=== PATIENT | female | born 1960 | race Caucasian/White ===

== ENCOUNTER 2017-01-04 19:28 | Emergency (ER) | payer OTHER ==
[2017-01-04 19:41] VITALS: TEMP 98.6; BMI 37.8
[2017-01-04] MEDS ORDERED: ZOFRAN 4 MG/2 ML IM STA (20:51)
[2017-01-04] MEDS ORDERED: ATIVAN IVP STA (20:51)
[2017-01-04] MEDS ORDERED: MORPHINE 2 MG/ML SYRINGE IM STA (20:51)
--- NOTE | 2017-01-04 20:52 | ED.PDOC ---
General ED Provider: Dr. JOSE F ROMERO Chief Complaint: Chest Pain Stated Complaint: she woke up with left side chest pain, says she was informed by her PCP, that her cancer (colonmay be per pt) is back, she is stressed out about it. does not radiate, hurt to touch on left side. while i was in hospital my blood presssure pills were changed, Time Seen by Physician: 20:53 Mode of Arrival: Walk-In Information Source: Patient Primary Care Provider: ANTONIA KARIMI Nursing and Triage Documentation Reviewed and Agree: Yes Cardiovascular Complaint Exam - Chest Pain Complaint/Exam Onset: Gradual Symptoms Are: Still present Timing: Constant Initial Severity: Moderate Current Severity: Moderate Location: Reports: Left anterior Pain Radiates: Reports: None Character: Reports: Aching Aggravating: Reports: None Alleviating: Reports: None Associated Signs and Symptoms: Denies: Diaphoresis, Nausea, Vomiting, Fever, Palpitations, Cough, Hemoptysis, Back pain, Abdominal pain, Dizziness, Short of air, Calf pain, Calf swelling Related History: Reports: Similar episode Related Surgical History: Reports: None History of Healthcare-Acquired Pneumonia: Reports: No AMI/ACS Risk Factors: Reports: None TAD Risk Factors: Reports: None Pulmonary Embolism Risk Factors: Reports: None Prior Care for this Complaint: Yes Recent Stress Test: Yes Recent Echo/LV Function: Yes JVD Present: No Subcutaneous Emphysema Present: No Diminshed Breath Sounds: No Reproducible Chest Wall Pain: Yes Bilateral Pulses Present: Yes If Risk Factors for AMI/ACS Consider: EKG, Cardiac Enzymes, Serial Studies, Oxygen Differential Diagnoses: Stable Angina, Chest Wall Pain, Other (anxiety) Review of Systems - Review Of Systems Constitutional: Reports: No symptoms Eyes: Reports: No symptoms Ears, Nose, Mouth, Throat: Reports: No symptoms Respiratory: Reports: No symptoms Cardiac: Reports: Chest pain GI: Reports: No symptoms : Reports: No symptoms Musculoskeletal: Reports: No symptoms Skin: Reports: No symptoms Neurological: Reports: Anxiety, Emotional problems Endocrine: Reports: No symptoms Hematologic/Lymphatic: Reports: No symptoms All Other Systems: Reviewed and Negative Past Medical History - Past Medical History Previously Healthy: No Endocrine: Reports: None Cardiovascular: Reports: CAD, [place], Hypertension, CHF Respiratory: Reports: COPD Hematological: Reports: None Gastrointestinal: Reports: None Genitourinary: Reports: CKD Neuro/Psych: Reports: Depression Musculoskeletal: Reports: None Cancer: Reports: None Last Menstrual Period: hysterectomy Other Pertinent Past Medical History: STENT PLACEMENT, AND OTHER VARIOUS MEDICAL CONDITIONS. - Surgical History General Surgical History: Reports: CABG, Orthopedic (rt knee replacemet 3-17) - Family History Family History: Reports: None - Social History Smoking Status: Never smoker Hx Substance Use: No Alcohol Screening: None Physical Exam - Physical Exam Appearance: Well-appearing, No pain distress, Well-nourished Eyes: NESTOR, EOMI, Conjunctiva clear ENT: Ears normal, Nose normal, Oropharynx normal Respiratory: Airway patent, Breath sounds clear, Breath sounds equal, Respirations nonlabored Cardiovascular: RRR, Pulses normal, No rub, No murmur GI/: Soft, Nontender, No masses, Bowel sounds normal, No Organomegaly Musculoskeletal: Normal strength, ROM intact, No edema, No calf tenderness Skin: Warm, Dry, Normal color Neurological: Sensation intact, Motor intact, Reflexes intact, Cranial nerves intact, Alert, Oriented Psychiatric: Affect appropriate, Mood appropriate Re-Evaluation - Re-Evaluation Time of Re-Evaluation: 23:36 Status: Improved Critical Care Note - Critical Care Note Total Time (mins): 0 Course - Course Hematology/Chemistry: 01/04/17 20:55 01/04/17 20:55 Orders, Labs, Meds: Lab Review 01/04/17 20:55 WBC 5.55 RBC 4.16 L Hgb 12.0 Hct 36.1 L MCV 86.8 MCH 28.8 MCHC 33.2 RDW Coeff of Kylee 14.0 Plt Count 185 Immature Gran % (Auto) 0.4 Neut % (Auto) 52.3 Lymph % (Auto) 40.2 [place] % (Auto) 5.6 Eos % (Auto) 1.3 Baso % (Auto) 0.2 Immature Gran # (Auto) 0.0 Neut # 2.9 Lymph # 2.2 [place] # 0.3 L Eos # 0.1 Baso # 0.0 Sodium 140 Potassium 3.7 Chloride 105 Carbon Dioxide 25 Anion Gap 13.7 BUN 14 Creatinine 1.05 Estimated GFR (MDRD) 54.00 BUN/Creatinine Ratio 13.33 Glucose 86 Calcium 9.6 Total Bilirubin 0.59 AST 21 ALT 15 Alkaline Phosphatase 93 Total Creatine Kinase 296 CK-MB (CK-2) 13.3 H* CK-MB (CK-2) % 4.04039 Troponin I < 0.0100 Total Protein 7.8 Albumin 3.9 Globulin 3.9 Albumin/Globulin Ratio 1.00 Orders Category Date Time Status EKG-(ED ONLY) Stat CARDIO 01/04/17 21:03 Completed CBC W/ AUTO DIFF Stat LAB 01/04/17 20:55 Completed COMPREHENSIVE METABOLIC PANEL Stat LAB 01/04/17 20:55 Completed CREATINE KINASE Stat LAB 01/04/17 20:55 Completed TROPONIN I Stat LAB 01/04/17 20:55 Completed Clonidine HCl [Catapres] MEDS 01/04/17 23:54 Discontinued 0.2 mg PO ONCE STA Ketorolac Tromethamine [Toradol] MEDS 01/04/17 21:31 Discontinued 60 mg IM ONCE STA Lorazepam Inj [Ativan] MEDS 01/04/17 20:59 Discontinued 1 mg IM ONCE STA Ondansetron HCl/Pf [Zofran 4 mg/2 ml] MEDS 01/04/17 20:51 Discontinued 4 mg IM ONCE STA CHEST, 1V AP ONLY Stat RADS 01/04/17 20:51 Completed Medications Discontinued Medications Generic Name Dose Route Start Last Admin Trade Name Freq PRN Reason Stop Dose Admin Clonidine 0.2 mg 01/04/17 23:54 01/05/17 00:11 Catapres PO 01/04/17 23:55 0.2 mg ONCE STA Administration Ketorolac Tromethamine 60 mg 01/04/17 21:31 01/04/17 21:42 Toradol IM 01/04/17 21:32 60 mg ONCE STA Administration Lorazepam 1 mg 01/04/17 20:59 01/04/17 21:41 Ativan IM 01/04/17 21:00 1 mg ONCE STA Administration Ondansetron HCl 4 mg 01/04/17 20:51 01/04/17 21:42 Zofran 4 Mg/2 Ml IM 01/04/17 20:52 4 mg ONCE STA Administration Vital Signs: Temp Pulse Resp BP Pulse Ox 01/04/17 19:29 98.6 F 67 20 224/128 H 98 DEANNE Risk Score DEANNE Risk Score: Risk Score Odds of by 30D 0 0.1 (0.1-0.2) 1 0.3 (0.2-0.3) 2 0.4 (0.3-0.5) 3 0.7 (0.6-0.9) 4 1.2 (1.0-1.5) 5 2.2 (1.9-2.6) 6 3.0 (2.5-3.6) 7 4.8 (3.8-6.1) Departure - Departure Time of Disposition: 01:06 Disposition: HOME SELF-CARE Discharge Problem: Chest pain Instructions: Chest Pain (ED) Condition: Stable Pt referred to PMD for follow-up: Yes Additional Instructions: Keep checking the blood pressure f/u with PMD needs medication changed. Prescriptions: Lisinopril [Zestril] 20 mg PO DAILY #20 tablet Allergies/Adverse Reactions: Allergies egg Adverse Reaction (Verified 01/04/17 20:41) Vomiting unable to tolerate eggs plan but no problems cooked in foods gabapentin Adverse Reaction (Verified 01/04/17 20:41) lactose Adverse Reaction (Verified 01/04/17 20:41) Vomiting unable to tolerate milk but no problems cooked in foods morphine Adverse Reaction (Verified 01/04/17 20:41) "makes me crazy in the head" Penicillins Adverse Reaction (Verified 01/04/17 20:41) steroids Adverse Reaction (Uncoded 08/05/16 16:02) Home Medications: Ambulatory Orders Albuterol Sulfate [Proair Hfa] 2 puff IH Q4H PRN 02/26/14 Clonazepam [Klonopin] 0.5 mg PO BID 02/26/14 Escitalopram Oxalate [Lexapro] 10 mg PO DAILY 09/21/15 Levothyroxine Sodium [Synthroid] 50 mcg PO QDAC 09/21/15 Rosuvastatin Calcium [Crestor] 40 mg PO BEDTIME 09/21/15 Ergocalciferol (Vitamin D2) [Vitamin D2] 50,000 unit PO WEEKLY 10/24/16 Furosemide [Lasix] 20 mg PO DAILY LAB PRN 10/24/16 Trazodone HCl 100 mg PO BEDTIME 10/24/16 Lisinopril [Zestril] 2.5 mg PO BID #30 tablet 11/02/16 Aspirin [Aspirin EC] 81 mg PO DAILYWM 01/04/17 Lisinopril [Zestril] 20 mg PO DAILY #20 tablet 01/05/17 Disposition Discussed With: Patient, Family
[2017-01-04] MEDS ORDERED: ATIVAN IM STA (20:59)
[2017-01-04 21:01] LABS: BASOPHILS % (AUTO) 0.2 % (0.0-3.0); EOSINOPHILS # (AUTO) 0.1 K/ul (0.0-0.7); EOSINOPHILS % (AUTO) 1.3 % (0.0-7.0); HEMATOCRIT 36.1 % (37.0-47.0); IMMATURE GRANULOCYTE % (AUTO) 0.4 % (0.0-5.0); LYMPHOCYTES # (AUTO) 2.2 K/uL (0.60-3.4); LYMPHOCYTES % (AUTO) 40.2 (10.0-50.0); MEAN CORPUSCULAR HEMOGLOBIN 28.8 pg (27.0-31.0); MEAN CORPUSCULAR HGB CONC 33.2 (31.8-35.4); MEAN CORPUSCULAR VOLUME 86.8 fl (81.0-99.0); MONOCYTES # (AUTO) 0.3 K/uL (0.4-2.0); MONOCYTES % (AUTO) 5.6 (0-10); NEUTROPHILS # (AUTO) 2.9 K/ul (2.0-6.9); NEUTROPHILS % (AUTO) 52.3; PLATELET COUNT 185 10^3/uL (140-440); RED BLOOD COUNT 4.16 10^6/ul (4.20-5.40); WHITE BLOOD COUNT 5.55 K/ul (4.6-10.2)
[2017-01-04] MEDS ORDERED: TORADOL IM STA (21:31)
--- NOTE | 2017-01-04 21:38 | DI ---
EXAMINATION: AP portable chest radiograph. HISTORY: Pain in the left breast radiating to shoulder and through back, pain has been present all d ay FINDINGS: Wire sternal sutures are unchanged since 10/24/2016. The lungs are clear. The aorta is n ormal in caliber. The heart is mildly enlarged. The bones are intact. No pneumothorax or pleural effusions are detected. Surgical clips are noted in the right upper quadrant. IMPRESSION: No acute cardiopulmonary disease. Previous sternotomy and mild cardiomegaly.
[2017-01-04 21:53] LABS: ALANINE AMINOTRANSFERASE 15 U/L (12-78); ALBUMIN 3.9 g/dL (3.4-5.0); ALKALINE PHOSPHATASE 93 U/L (42-98); ANION GAP 13.7; ASPARTATE AMINO TRANSFERASE 21 U/L (15-37); BILIRUBIN,TOTAL 0.59 mg/dL (0.00-1.20); BLOOD UREA NITROGEN 14 mg/dL (7-18); BUN/CREATININE RATIO 13.33; CALCIUM 9.6 mg/dL (8.2-10.2); CARBON DIOXIDE 25 mmol/L (21-32); CHLORIDE 105 mmol/L (98-107); CREATINE KINASE 296 U/L; CREATININE 1.05 mg/dL (0.60-1.30); GLUCOSE 86 mg/dL (70-110); POTASSIUM 3.7 mmol/L (3.5-5.10); SODIUM 140 mmol/L (136-145); TOTAL PROTEIN 7.8 g/dL (6.4-8.2)
[2017-01-04 21:55] LABS: CREATINE KINASE MB 13.3 ng/ml (0.0-3.6)
[2017-01-04] MEDS ORDERED: CATAPRES PO STA (23:54)
[2017-01-05 01:07] VITALS: BP 147/64
== END 2017-01-05 02:10 | disposition home or self-care (01) ==
LOC: ED 19:28
DX: R07.9 Chest pain, unspecified (principal); F41.9 Anxiety disorder, unspecified; I25.2 Old myocardial infarction; I10 Essential (primary) hypertension
CPT/HCPCS: 36415; 80053; 82550; 82553; 84484; 85025; 93005; 93010; 96372; 99284

== ENCOUNTER 2017-01-19 17:33 | Outpatient (CLI) | payer OTHER ==
[2017-01-19 18:03] LABS: COCAIN SCREEN,URINE NEGATIVE (NEGATIVE)
== END 2017-01-19 17:34 | disposition home or self-care (01) ==
LOC: LAB 17:33
PROVIDERS: ATTEND General Practice
DX: F19.20 Other psychoactive substance dependence, uncomplicated (principal)
CPT/HCPCS: 80306

== ENCOUNTER 2017-02-15 16:48 | Outpatient (CLI) ==
[2017-02-15 17:37] LABS: COCAIN SCREEN,URINE NEGATIVE (NEGATIVE)
== END 2017-02-15 16:49 | disposition home or self-care (01) ==
LOC: LAB 16:48
PROVIDERS: ATTEND General Practice
DX: E55.9 Vitamin D deficiency, unspecified (principal); F19.20 Other psychoactive substance dependence, uncomplicated
CPT/HCPCS: 36415; 80306; 82306

== ENCOUNTER 2017-06-01 21:38 | Emergency (ER) | payer OTHER ==
[2017-06-01 21:52] VITALS: TEMP 98.5; BMI 40.6
[2017-06-01 22:15] LABS: BASOPHILS % (AUTO) 0.2 % (0.0-3.0); EOSINOPHILS # (AUTO) 0.1 K/ul (0.0-0.7); EOSINOPHILS % (AUTO) 1.5 % (0.0-7.0); HEMATOCRIT 37.4 % (37.0-47.0); HEMOGLOBIN 12.9 g/dl (12.0-16.0); IMMATURE GRANULOCYTE % (AUTO) 0.4 % (0.0-5.0); LYMPHOCYTES # (AUTO) 2.3 K/uL (0.60-3.4); LYMPHOCYTES % (AUTO) 41.2 (10.0-50.0); MEAN CORPUSCULAR HEMOGLOBIN 29.5 pg (27.0-31.0); MEAN CORPUSCULAR HGB CONC 34.5 (31.8-35.4); MEAN CORPUSCULAR VOLUME 85.6 fl (81.0-99.0); MONOCYTES # (AUTO) 0.4 K/uL (0.4-2.0); MONOCYTES % (AUTO) 6.6 (0-10); NEUTROPHILS # (AUTO) 2.7 K/ul (2.0-6.9); NEUTROPHILS % (AUTO) 50.1; PLATELET COUNT 211 10^3/uL (140-440); RED BLOOD COUNT 4.37 10^6/ul (4.20-5.40); WHITE BLOOD COUNT 5.46 K/ul (4.6-10.2)
[2017-06-01] MEDS ORDERED: SODIUM CHLORIDE 1,000 ML IV STA (22:28)
[2017-06-01] MEDS ORDERED: NITROSTAT SL STA ×2 (22:29→23:06)
[2017-06-01] MEDS ORDERED: TYLENOL PO STA ×2 (22:54→23:08)
[2017-06-01 22:57] LABS: ANION GAP 13.4; BILIRUBIN,TOTAL 0.61 mg/dL (0.00-1.20); BUN/CREATININE RATIO 8.39; CALCIUM 10.1 mg/dL (8.2-10.2); CREATININE 1.31 mg/dL (0.60-1.30); POTASSIUM 3.4 mmol/L (3.5-5.10)
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
[2017-06-01 22:58] LABS: ALBUMIN 3.7 g/dL (3.4-5.0); ALBUMIN/GLOBULIN RATIO 0.8; TOTAL PROTEIN 8.3 g/dL (6.4-8.2); TROPONIN I 0.026 ng/ml (0.0000-0.4000)
[2017-06-01 23:10] LABS: CREATINE KINASE MB 10.6 ng/ml (0.0-3.6)
[2017-06-01 23:12] VITALS: BP 162/103
--- NOTE | 2017-06-02 00:01 | CT ---
EXAM: CT head without contrast. HISTORY: Trauma with headache. PROCEDURE: Contiguous axial CT images of the head without contrast with coronal and sagittal reforma ts. FINDINGS: There is diffuse cerebral atrophy. The ventricles and basal cisterns are normal in size and configuration. No evidence of mass or midline shift. No intracranial hemorrhage or evidence of lar ge vessel infarct. No extra-axial fluid collection. There are chronic small vessel ischemic changes in the white matter. No skull fracture. The paranasal sinuses and mastoid air cells are well-aerate d. Impression: No intracranial hemorrhage or skull fracture. Chronic small vessel ischemic changes. Diffuse cerebral atrophy.
--- NOTE | 2017-06-02 00:10 | CT ---
EXAM: CT of the cervical spine without contrast. HISTORY: Fall. PROCEDURE: Contiguous axial CT images of the cervical spine without contrast with coronal and sagitt al reformats. FINDINGS: There is normal alignment of the cervical vertebral bodies and facets. The vertebral body heights are maintained. There is multilevel disc space narrowing. There are posterior osteophytes a t multiple levels of the cervical spine. There is multilevel facet arthropathy. The C1-2 relationsh ip is maintained. No prevertebral soft tissue abnormality. Impression: No evidence of fracture. Normal alignment of the cervical spine with degenerative changes as described.
[2017-06-02] MEDS ORDERED: DILAUDID 1 MG/ML SYRINGE IVP STA (00:33)
[2017-06-02] MEDS ORDERED: LOPRESSOR IVP STA (01:12)
--- NOTE | 2017-06-02 08:07 | DI ---
EXAM: CHEST FRONTAL VIEW HISTORY: Chest pain. COMPARISON: 01/04/2017 FINDINGS: Heart size remains within normal limits. Prior sternotomy. No acute infiltrates are seen. No vascular congestion. There is no consolidation, visible pleural fluid or pneumothorax. Bones re veal no acute fracture. IMPRESSION: No acute cardiopulmonary process.
== END 2017-06-02 01:21 | disposition short-term general hospital (02) ==
LOC: ED 21:38
DX: I20.0 Unstable angina (principal); I13.0 Hypertensive heart and chronic kidney disease with heart failure and stage 1 through stage 4 chronic kidney disease, or unspecified chronic kidney disease; N18.9 Chronic kidney disease, unspecified; I50.9 Heart failure, unspecified; I25.2 Old myocardial infarction; S09.90XA Unspecified injury of head, initial encounter; S19.9XXA Unspecified injury of neck, initial encounter; R42 Dizziness and giddiness; R94.31 Abnormal electrocardiogram [ECG] [EKG]; R74.8 Abnormal levels of other serum enzymes; W19.XXXA Unspecified fall, initial encounter; J44.9 Chronic obstructive pulmonary disease, unspecified; Z79.899 Other long term (current) drug therapy; Z95.1 Presence of aortocoronary bypass graft; Z95.5 Presence of coronary angioplasty implant and graft
CPT/HCPCS: 36415; 80053; 82550; 82553; 83880; 84484; 85025; 93005; 93010; 96361; 96374; 96375; 99285

== ENCOUNTER 2017-08-11 09:29 | Outpatient (CLI) ==
[2017-06-14 16:25] VITALS: BMI 44.8
== END 2017-08-11 09:30 | disposition home or self-care (01) ==
LOC: LAB 09:29
PROVIDERS: ATTEND General Practice
DX: E03.9 Hypothyroidism, unspecified (principal); E55.9 Vitamin D deficiency, unspecified; I10 Essential (primary) hypertension; I25.810 Atherosclerosis of coronary artery bypass graft(s) without angina pectoris; N18.3 Chronic kidney disease, stage 3 (moderate); Z79.899 Other long term (current) drug therapy
CPT/HCPCS: 36415; 80053; 80061; 81001; 85025

== ENCOUNTER 2017-09-11 09:16 | Outpatient (CLI) ==
[2017-06-14 16:25] VITALS: BMI 44.8
== END 2017-09-11 09:17 | disposition home or self-care (01) ==
LOC: LAB 09:16
PROVIDERS: ATTEND General Practice
DX: I25.810 Atherosclerosis of coronary artery bypass graft(s) without angina pectoris (principal); E55.9 Vitamin D deficiency, unspecified; I10 Essential (primary) hypertension; C18.9 Malignant neoplasm of colon, unspecified; F32.9 Major depressive disorder, single episode, unspecified; R27.0 Ataxia, unspecified; E03.9 Hypothyroidism, unspecified; Z79.899 Other long term (current) drug therapy
CPT/HCPCS: 36415; 80053; 80061; 81001; 82306; 82607; 83525; 84100; 84443; 85025

== ENCOUNTER 2017-10-11 14:51 | Outpatient (CLI) | payer OTHER ==
[2017-06-14 16:25] VITALS: BMI 44.8
--- NOTE | 2017-10-11 15:21 | CT ---
EXAM: CT of the abdomen pelvis without contrast History: Epigastric abdominal pain. Comparison: CT abdomen pelvis 08/05/2016 Technique: Multiplanar CT images through the abdomen pelvis were obtained without the administration of IV contrast Findings: Subsegmental atelectasis seen within the lung bases. Trace right pleural effusion. No ac [place] osseous abnormalities. Degenerative changes of the spine again noted. Sternotomy wires. Status post cholecystectomy. Atherosclerotic vascular calcifications. No focal liver or splenic les ions. No peripancreatic inflammation. Adrenal glands are unremarkable. No renal stones and no hydr onephrosis. Postsurgical changes of the bowel. No bowel obstruction. Colonic diverticulosis. No b ladder wall thickening. Uterus is not seen. No perirectal inflammation. 2.3 cm fat containing area of inflammation adjacent to the proximal sigmoid colon. Impression: 1. Epiploic appendagitis of the proximal sigmoid colon. 2. Colonic diverticulosis.
== END 2017-10-11 14:52 | disposition home or self-care (01) ==
LOC: RAD 14:51
PROVIDERS: ATTEND Internal Medicine Hematology & Oncology
DX: R10.13 Epigastric pain (principal); C18.2 Malignant neoplasm of ascending colon

== ENCOUNTER 2017-10-17 05:17 | Emergency (ER) ==
[2017-10-17 05:33] VITALS: TEMP 98.8; BMI 46.4
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
[2017-10-17] MEDS: LIDOCAINE HCL 1% SDV SUBCUT STA (06:29)
--- NOTE | 2017-10-17 06:40 | CT ---
EXAM: CT brain without contrast HISTORY: Head trauma and tenderness TECHNIQUE: CT of the brain without intravenous contrast FINDINGS: There is no acute hemorrhage midline shift or mass effect. No hydrocephalus or abnormal e xtra-axial fluid collection. Generalized involutional atrophy, moderate. Chronic microvascular thapa ges of the white matter tracts, moderate . No acute large vessel territorial infarct is seen. The b armin cranium appears normal. The visualized paranasal sinuses are clear. Soft tissues without signific ant abnormality. IMPRESSION: 1. Chronic changes as described. No acute intracranial abnormality is seen.
[2017-10-17] MEDS: TYLENOL PO STA (07:03)
[2017-10-17 07:14] VITALS: BP 160/80
== END 2017-10-17 07:15 | disposition home or self-care (01) ==
LOC: ED 05:17
DX: S01.81XA Laceration without foreign body of other part of head, initial encounter (principal); W22.8XXA Striking against or struck by other objects, initial encounter; I10 Essential (primary) hypertension
CPT/HCPCS: 99283

== ENCOUNTER 2017-12-15 15:27 | Emergency (ER) | payer OTHER ==
[2017-12-15 15:33] VITALS: BP 183/109; TEMP 98.9; BMI 49.3
--- NOTE | 2017-12-15 16:52 | US ---
EXAM: Bilateral lower extremity venous Doppler History: Bilateral lower extremity edema. Technique: Multiple sonographic images through the bilateral lower extremities were obtained. Color duplex Doppler was used to interrogate vascular flow. Findings: The bilateral common femoral, greater saphenous, profunda, superficial femoral, popliteal, peroneal, posterior tibial and anterior tibial veins demonstrate spontaneous flow with normal compre ssion and normal augmentation. Bilateral lower extremity subcutaneous edema. Impression: No sonographic evidence for deep venous thrombosis. Bilateral lower extremity subcutane ous edema.
[2017-12-15] MEDS ORDERED: LASIX IM STA (17:34)
--- NOTE | 2017-12-15 17:37 | ED.PDOC ---
General ED Provider: Dr. PUNEET PÉREZ Chief Complaint: Extremity Swelling/Pain Stated Complaint: lower ext edema and pain Time Seen by Physician: 15:29 (in ED FOR lower leg edema) Mode of Arrival: Walk-In Information Source: Patient Exam Limitations: No limitations Primary [facility] Nursing and Triage Documentation Reviewed and Agree: Yes Reviewed sepsis parameters & appropriate labs ordered?: Yes System Inflammatory Response Syndrome: Not Applicable Sepsis Protocol: For patient's 13 years and over: Temp is 96.8 and below OR 101 and greater Pulse >90 BPM Resp >20/minute Acutely Altered Mental Status Are patient's symptoms suggestive of a new infection, such as: -Pneumonia -Skin, Soft Tissue -Endocarditis -UTI -Bone, Joint Infection -Implantable Device -Acute Abdominal Infection -Wound Infection -Meningitis -Blood Stream Catheter Infection -Unknown System Inflammatory Response Syndrome: Not Applicable Musculoskeletal Complaint Exam - Lower Extremity Complaint/Exam Location of Pain: Reports: Right (edema ), Left Mechanism of Injury: Reports: No known trauma Onset/Duration: 1 week Symptoms Are: Still present Onset of Pain: Reports: Days Initial Severity: Moderate Current Severity: Moderate Location: Reports: Discrete Character: Reports: Aching, Spasmodic Alleviating: Reports: Rest Aggravating: Reports: Movement Able to Bear Weight: Yes Associated Signs and Symptoms: Reports: Swelling. Denies: Redness, Bruising, Fever, Weakness, Numbness, Tingling DVT Risk Factors: Denies: Oral contraceptives, Estrogen, Smoking, Prior DVT, Prior PE, Malignancy, Recent surgery, Recent trauma, Recent travel, Recent bedrest Septic Arthritis Risk Factors: Reports: None Lower Extremity Findings: Present: Swelling Review of Systems - Review Of Systems Constitutional: Reports: No symptoms Eyes: Reports: No symptoms Ears, Nose, Mouth, Throat: Reports: No symptoms Respiratory: Reports: No symptoms Cardiac: Reports: No symptoms GI: Reports: No symptoms : Reports: No symptoms Musculoskeletal: Reports: No symptoms Skin: Reports: Other (edema lower legs) Neurological: Reports: No symptoms Endocrine: Reports: No symptoms Hematologic/Lymphatic: Reports: No symptoms All Other Systems: Reviewed and Negative Past Medical History - Past Medical History Previously Healthy: No Endocrine: Reports: None Cardiovascular: Reports: CAD, CO, Hypertension, CHF Respiratory: Reports: COPD Hematological: Reports: None Gastrointestinal: Reports: None Genitourinary: Reports: CKD Neuro/Psych: Reports: Depression Musculoskeletal: Reports: None Cancer: Reports: None Last Menstrual Period: none Other Pertinent Past Medical History: STENT PLACEMENT, AND OTHER VARIOUS MEDICAL CONDITIONS. - Surgical History General Surgical History: Reports: CABG (x 2 , 1st done at [facility], Secound one at [facility]. The last one done was in 2017 ), Orthopedic (rt knee replacemet 3-17), Stent Placement (Multple stent palcements) - Family History Family History: Reports: Heart - Social History Smoking Status: Never smoker Hx Substance Use: No Alcohol Screening: None Physical Exam - Physical Exam Appearance: Well-appearing, No pain distress, Well-nourished Eyes: NESTOR, EOMI, Conjunctiva clear ENT: Ears normal, Nose normal, Oropharynx normal Respiratory: Airway patent, Breath sounds clear, Breath sounds equal, Respirations nonlabored Cardiovascular: RRR, Pulses normal, No rub, No murmur GI/: Soft, Nontender, No masses, Bowel sounds normal, No Organomegaly Musculoskeletal: Edema Skin: Warm, Dry (edema bilateral lower legs ) Neurological: Sensation intact, Motor intact, Reflexes intact, Cranial nerves intact, Alert, Oriented Psychiatric: Affect appropriate, Mood appropriate Interpretation - Radiology Interpretation Radiology Interpretation By: Radiologist Radiology Results: Negative (dvt) Critical Care Note - Critical Care Note Total Time (mins): 0 Course - Course Hematology/Chemistry: 12/15/17 15:54 12/15/17 15:54 Orders, Labs, Meds: Lab Review 12/15/17 12/15/17 15:54 15:54 WBC 5.67 RBC 3.67 L Hgb 10.8 L Hct 32.2 L MCV 87.7 MCH 29.4 MCHC 33.5 RDW Coeff of Kylee 13.7 Plt Count 181 Immature Gran % (Auto) 0.2 Neut % (Auto) 58.0 Lymph % (Auto) 34.4 [place] % (Auto) 5.1 Eos % (Auto) 2.1 Baso % (Auto) 0.2 Immature Gran # (Auto) 0.0 Neut # (Auto) 3.3 Lymph # (Auto) 2.0 [place] # (Auto) 0.3 L Eos # (Auto) 0.1 Baso # (Auto) 0.0 Sodium 143 Potassium 4.1 Chloride 105 Carbon Dioxide 28 Anion Gap 14.1 BUN 16 Creatinine 1.10 Estimated GFR (MDRD) 51.00 BUN/Creatinine Ratio 14.54 Glucose 107 Calcium 9.3 Total Bilirubin 0.3 AST 16 ALT 10 L Alkaline Phosphatase 95 Total Protein 7.5 Albumin 3.3 L Globulin 4.2 Albumin/Globulin Ratio 0.79 Orders Category Date Time Status CBC W/ AUTO DIFF Stat LAB 12/15/17 15:43 Ordered COMPREHENSIVE METABOLIC PANEL Stat LAB 12/15/17 15:43 Ordered Furosemide [Lasix] MEDS 12/15/17 17:34 Stat 20 mg IM ONCE STA U/S VENOUS SCAN CINDY LEGS Stat RADS 12/15/17 15:45 Ordered Medications Generic Name Dose Route Start Last Admin Trade Name Freq PRN Reason Stop Dose Admin Furosemide 20 mg 12/15/17 17:34 Lasix IM 12/15/17 17:35 ONCE STA Vital Signs: Temp Pulse Resp BP Pulse Ox 12/15/17 15:27 98.9 F 77 18 183/109 H 98 Departure - Departure Time of Disposition: 17:38 Disposition: HOME SELF-CARE Discharge Problem: Edema of lower extremity Instructions: Leg Edema (ED) Condition: Good Pt referred to PMD for follow-up: Yes IPMP verified?: No Additional Instructions: Please call your Family Physician as soon as possible to schedule a follow-up appointment. Allergies/Adverse Reactions: Allergies Proton Pump Inhibitors Allergy (Mild, Verified 12/15/17 15:34) Nausea egg Adverse Reaction (Verified 12/15/17 15:34) Vomiting unable to tolerate eggs plan but no problems cooked in foods gabapentin Adverse Reaction (Verified 12/15/17 15:34) lactose Adverse Reaction (Verified 12/15/17 15:34) Vomiting unable to tolerate milk but no problems cooked in foods morphine Adverse Reaction (Verified 12/15/17 15:34) "makes me crazy in the head" Penicillins Adverse Reaction (Verified 12/15/17 15:34) steroids Adverse Reaction (Uncoded 10/17/17 05:33) Home Medications: Ambulatory Orders Albuterol Sulfate [Proair Hfa] 2 puff IH Q4H PRN 02/26/14 Furosemide [Lasix] 20 mg PO DAILY LAB PRN 10/24/16 Cholecalciferol (Vitamin D3) [Vitamin D3] 50,000 unit PO MONTHLY tab-cap Aspirin 81 mg PO DAILY 01/23/17 Rosuvastatin Calcium [Crestor] 40 mg PO DAILY 01/23/17 Clopidogrel Bisulfate [Plavix] 75 mg PO DAILY tab-cap 06/13/17
== END 2017-12-15 17:53 | disposition home or self-care (01) ==
LOC: ED 15:27
DX: R60.0 Localized edema (principal); I10 Essential (primary) hypertension; I50.9 Heart failure, unspecified; I25.810 Atherosclerosis of coronary artery bypass graft(s) without angina pectoris; I25.2 Old myocardial infarction; N18.9 Chronic kidney disease, unspecified; J44.9 Chronic obstructive pulmonary disease, unspecified; Z95.1 Presence of aortocoronary bypass graft; Z79.899 Other long term (current) drug therapy
CPT/HCPCS: 36415; 80053; 85025; 99283

== ENCOUNTER 2017-12-18 12:03 | Inpatient (IN) | payer OTHER ==
[2017-12-18 13:06] VITALS: BMI 50.5
--- NOTE | 2017-12-18 15:56 | CT ---
EXAM: CT chest without contrast. HISTORY: Chests and upper extremity swelling. Weight gain. Colon cancer. COMPARISON: Radiograph 06/14/2017. CT 08/05/2016. TECHNIQUE: Multiple axial images of the chest were obtained without intravenous contrast. Images we re reformatted in the sagittal and coronal planes. FINDINGS: There has been previous sternotomy. Evaluation for lymphadenopathy is limited by lack of intravenous contrast. Mediastinal lymph nodes are seen although not well characterized. Heart is mi ldly enlarged. Atherosclerotic calcifications present. No pericardial effusion detected. Mild pulmo nary vascular congestion suggested. Perihilar ground-glass opacities noted bilaterally. There are more focal ground-glass opacities in t he right upper lobe which are stable since the prior examination, consistent with scarring. Suggesti on of minimal interlobular septal thickening. No pleural effusion or pneumothorax identified. Limited images of the upper abdomen demonstrate no acute finding. Degenerative changes are present i n the spine. IMPRESSION: 1. Question mild pulmonary edema. 2. Stable right upper lobe scarring.
[2017-12-18] MEDS ORDERED: LASIX IVP STA (17:33)
[2017-12-18] MEDS ORDERED: HYDROCODONE ACETAMIN PO PRN (18:26)
[2017-12-18] MEDS ORDERED: PROAIR HFA IH PRN (18:26)
[2017-12-18] MEDS ORDERED: NORCO 10-325 ONE (19:02)
[2017-12-18] MEDS ORDERED: DESYREL ONE (20:52)
[2017-12-18] MEDS ORDERED: CRESTOR ONE (20:52)
[2017-12-18] MEDS: KLONOPIN PO SCH (20:57)
[2017-12-18] MEDS ORDERED: NON-FORMULARY MEDICATION (Trazodone Hcl [Trazodone Hcl] 100 MG) PO SCH (21:00)
[2017-12-18] MEDS ORDERED: NON-FORMULARY MEDICATION (Rosuvastatin Calcium [Crestor] 40 MG) PO SCH (21:00)
[2017-12-19] MEDS ORDERED: NORCO 10-325 ONE (02:14)
[2017-12-19] MEDS: SYNTHROID PO SCH (06:00)
[2017-12-19] MEDS ORDERED: LASIX TAB PO ONE (06:30)
[2017-12-19] MEDS ORDERED: NON-FORMULARY MEDICATION (Lisinopril [Lisinopril] 20 MG) PO SCH (09:00)
[2017-12-19] MEDS ORDERED: LEXAPRO PO SCH (09:00)
[2017-12-19] MEDS ORDERED: SYNTHROID PO SCH (09:00)
[2017-12-19] MEDS: ASPIRIN CHEWABLE PO SCH (09:20)
[2017-12-19] MEDS: KLONOPIN PO SCH ×3 (09:21→20:19)
[2017-12-19] MEDS: PLAVIX PO SCH (09:21)
[2017-12-19] MEDS: ZESTRIL PO SCH (09:21)
[2017-12-19] MEDS: NORCO 10-325 PO PRN ×2 (10:19→18:16)
[2017-12-19] MEDS: CRESTOR PO SCH (20:19)
[2017-12-19] MEDS: DESYREL PO SCH (20:19)
[2017-12-20] MEDS: NORCO 10-325 PO PRN ×2 (03:10→19:24)
[2017-12-20] MEDS: SYNTHROID PO SCH (05:59)
[2017-12-20] MEDS: KLONOPIN PO SCH ×3 (10:15→20:53)
[2017-12-20] MEDS ORDERED: NORCO 10-325 PO STA (10:16)
--- NOTE | 2017-12-20 11:14 | CT ---
EXAM: CT abdomen pelvis with and without contrast HISTORY: Bilateral lower lobe edema and weight gain of 25 pounds. Patient with history of cholecyst ectomy. COMPARISON: CT abdomen pelvis 10/11/2017 and numerous priors TECHNIQUE: Serial axial images of the abdomen pelvis were performed before and after 75 mL is of Omn ipaque IV contrast was administered. These were obtained from the lung bases through the inferior pe lvis. FINDINGS: The lung bases are clear. Small effusions are present. The liver is unremarkable. The gallbladder has been resected. The adrenal glands are unremarkable. The kidneys are unremarkable. The spleen is normal. The pancreas is normal. The stomach is nondis tended. The small bowel in the abdomen pelvis is normal. There is a small ventral abdominal hernia containin g a small loop of bowel which is nonobstructing. The colon is unremarkable. Urinary bladder is dist ended. The pelvic soft tissues demonstrate a prior hysterectomy. There is no free air, free fluid o r lymphadenopathy. There is moderate degenerative disease of the spine. IMPRESSION: 1. No acute intra-abdominal or pelvic process to account for patient's symptoms. 2. Unchanged diverticulosis with interval resolution of epiploic appendagitis. 3. Small ventral abdominal hernia containing a small loop of bowel which is nonobstructing. This is unchanged from prior exam.
[2017-12-20] MEDS: ASPIRIN CHEWABLE PO SCH (14:10)
[2017-12-20] MEDS: ZESTRIL PO SCH (14:11)
[2017-12-20] MEDS: PLAVIX PO SCH (14:11)
[2017-12-20] MEDS: CRESTOR PO SCH (20:53)
[2017-12-20] MEDS: DESYREL PO SCH (20:53)
[2017-12-21] MEDS: NORCO 10-325 PO PRN (03:33)
[2017-12-21] MEDS: SYNTHROID PO SCH (05:38)
[2017-12-21 05:55] VITALS: BP 112/69; TEMP 97.7
--- NOTE | 2017-12-21 08:14 | ECHO2D ---
Date of Exam: 12/19/17 Ordering Physician: DR. DIDI MALIK Room # : 102 Reason for Echo: CAD POST CABG, CHEST PAIN M-Mode Normal Adult Results LV Dimensions Normal Adult Results AoV Opening excursions >1.6 >1.6 LVEDD-base- 3.5-5.8 5.1 Ao root dimensions 2.0-3.7 3.6 LVESD-base- 3.1-4.6 L. Atrium dimensions 1.9-3.8 4.4 Post. Wall thickness 0.8-1.1 1.1 IV septum (thickness) 0.7-1.2 1.0 Post. Wall excursion 0.72-1.3 NORMAL Septal motion NORMAL Systolic motion R. Ventricular cavity 1.5-2.0 NORMAL LVEF 60% 52% Paradoxical septal wall motion NORMAL 2-D : MILDLY HYPOKINETIC SEPTUM--NORMAL VALVES--ENLARGED LEFT ATRIAL CAVITY-- NORMAL LEFT VENTRICLE CAVITY--NO EFFUSION, NO THROMBUS COLOR FLOW: MODERATE MITRAL REGURGITATION AND TRICUSPID REGURGITATION M-MODE: MV: NORMAL AV: NORMAL TV: NORMAL PV: CHAMBER SIZE: ENLARGED LEFT ATRIAL CAVITY WALL MOTION: MILDLY HYPOKINETIC SEPTUM PERICARDIUM: NORMAL INTERPRETATION: 1. MILDLY HYPOKINETIC SEPTUM--EJECTION FRACTION 52% 2. NORMAL LEFT VENTRICLE SIZE 3. ENLARGED LEFT ATRIAL CAVITY 4. NORMAL VALVES 5. MODERATE TRICUSPID REGURGITATION AND MITRAL REGURGITATION MTDD
[2017-12-21] MEDS: KLONOPIN PO SCH (08:42)
[2017-12-21] MEDS: ZESTRIL PO SCH (08:42)
[2017-12-21] MEDS: PLAVIX PO SCH (08:42)
[2017-12-21] MEDS: ASPIRIN CHEWABLE PO SCH (08:42)
--- NOTE | 2017-12-25 13:21 | HP ---
DATE OF SERVICE: 12/18/17 CHIEF COMPLAINT: Bilateral leg and ankle edema and rapid weight gain of 25 pounds in 20 days. HISTORY OF PRESENT ILLNESS: The patient had noted that her legs had been increasing in size and so she presented to the emergency room 12/15/2017 for the problem. The patient did tell me that the ER was going to give her an injection of diuretic, however he did change his mind according to her. She was prescribed pain medication until her office visit with me. The patient on examination at the office indeed had bilateral ankle and leg edema, 2+ pitting edema. She also had gained 25 pounds in the last 20 days. The patient does tell me that she doesn't eat very much to gain that many pounds. She also mentioned that she is having more difficulty ambulating because of balance problems. 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 The patient was admitted for further examination and determination looking for explanation for the above problems. PAST PERSONAL HISTORY: This patient had colon carcinoma resected, right hemicolectomy 2011, cholecystectomy and appendectomy at age 14, cardiac bypass surgery 2012 and 2015, cardiac catheterization and stent application May 2017, right TKR October 2016. The patient is also hypertensive. She had a previous total abdominal hysterectomy. She had two previous C-sections. The patient had colonoscopy February 2017 and endoscopy February 2017. FAMILY HISTORY: Son had colon carcinoma operated. He also had melanoma. Brother had carcinoma and at age 41. Positive history of cardiac disease in the family. There is also a history of seizure disorder in the family. History of cardiac disease also is in the family and the father also had malignancy. Brother had CVA. Paternal family has diabetes and heart disease, as well as CVA. Probably on the maternal side has a hereditary neuromuscular disease, ataxia, as well as muscular dystrophy. SOCIAL HISTORY: The patient is a and had remarried since the demise of her . She never did smoke and no alcoholic beverages. MEDICATIONS: Prior to this admission consisted of the following: ProAir HFA 2 puffs every 4 hours prn Vitamin D3 50,000 Units monthly Crestor 40 mg at bedtime Aspirin 81 mg daily Plavix 75 mg daily Lisinopril 20 mg daily Levothyroxine 50 mcg daily Lexapro 10 mg daily Trazodone 100 mg near bedtime Clonazepam 0.5 mg three times a day Hydrocodone/Tylenol 10/325 mg one every 8 hours prn #75 ALLERGIES: PPI, Gabapentin, Lactose, Morphine and eggs. REVIEW OF SYSTEMS: CONSTITUTIONAL: The patient is alert. No fever and no chills and no significant fatigue. 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 No significant headaches and no seizure disorder and no syncopal episodes. VISUAL: The patient denies any double vision or blurred vision, as well as transient loss of vision. AUDITORY: Hearing is adequate. Denies any pain or drainage in both ears RESPIRATORY: The patient denies any cough that is significant and no significant shortness of breath with usual exertion. The patient claims that she tires very easily. CARDIOVASCULAR: The patient denies any chest pain or chest tightness. This patient is known to have coronary artery disease and had undergone two cardiac bypass surgeries, as well as cardiac catheterization and stent after the two previous surgical interventions. GASTROINTESTINAL: The patient has no dysphagia, no abdominal pain and no diarrhea. GENITOURINARY: Denies any pain on urination. MUSCULOSKELETAL: The patient has lumbar pain, as well as knee pain. The right knee has been replaced. ENDOCRINE: The patient has hypothyroid and replaced with Levothyroxine. INTEGUMENT: She denies any rash or pruritus. HEMATOLOGIC: Negative for prolonged bleeding. PSYCHIATRIC: Affect is normal. PHYSICAL EXAMINATION: GENERAL: We have a 57 year old female admitted to the hospital because of bilateral ankle and leg edema persistent and was seen in the emergency room three days ago. The patient also had a very rapid weight gain of 25 pounds in 25 days with no obvious explanation. The patient's Doppler studies were negative for any DVT. The patient is alert and oriented and responsive and cooperative. Not dyspneic, nor tachypneic and no cyanosis. VITAL SIGNS: On admission, temperature 97.7, pulse 58, blood pressure left 112/ 59, right 113/63, respiratory rate 18, oxygen saturation 100% at room air. The patient is 5'2" and recorded to weigh 262 pounds, 5.6 ounces. However, the other weight is 276 pounds and 10 ounces. HEAD: Unremarkable. Scalp with no active dermatitis. FACE: Symmetrical and equal with no facial weakness and redness and no remarkable tenderness to palpation under pressure on the frontal or maxillary sinus areas. EYES: Pupils equal/reactive to light. Conjunctivae not pale. Sclerae not icteric. NOSE: There is no inflammation and no deformity and no drainage. MOUTH: Unremarkable. THROAT: No inflammation, tumors or exudate. NECK: No masses. No bruit. No tenderness. No rigidity. CHEST: Essentially symmetrical and equal with good expansion. BREASTS: Symmetrical and equal. Examined at the office prior to admission. No dominant mass. AXILLA: Negative for any adenopathies or tumors. LUNGS: Breath sounds are heard in both sides. Slightly diminished. No rales or wheezing. HEART: Audible and regular with good tones. No murmurs. ABDOMEN: Protuberant, soft with scar from the previous surgeries. Bowel sounds are active. No ventral hernias noted. EXTERNAL GENITALIA: Not examined. PELVIC AND RECTAL: Not performed. LOWER EXTREMITIES: Markedly edematous legs and ankles with no redness. Pedal pulses not palpable. UPPER EXTREMITIES: Symmetrical and equal. ASSESSMENT: 1. BILATERAL LOWER LEG EDEMA AND ANKLE, ETIOLOGY UNDETERMINED 2. RAPID WEIGHT GAIN OF 25 POUNDS IN 20 DAYS 3. HISTORY OF OSTEOARTHRITIS OF THE KNEES, RIGHT OPERATED, TKR OCTOBER 2016 4. HISTORY OF MYOCARDIAL INFARCTION, OPERATED 2012 AND 2015, CORONARY ARTERY BYPASS GRAFT. CARDIAC CATHETERIZATION AND STENT MAY 2017. 5. HISTORY OF COLON CARCINOMA AND RIGHT HEMICOLECTOMY 2011 6. HEREDITARY NEUROMUSCULAR DYSTROPHY WITH ATAXIA 7. MARKEDLY ELEVATED BMI MTDD
--- NOTE | 2017-12-26 15:23 | DS ---
DATE OF SERVICE: 12/21/17 PATIENT IDENTIFICATION: 57 year old female admitted to the hospital because of rapid weight gain of 25 pounds in 20 days and persistent edema of both lower extremities. The patient was concerned about the leg edema. She did present herself to the emergency room on 12/15/2017. She claimed that Lasix was mentioned, but had not been given. She told me that the doctor changed his mind. She was given cardiac analgesic medication of fill the gap until she sees me in the office. HOSPITAL COURSE: She was alert and oriented. EYES: Conjunctivae slightly pale. Sclera not icteric. NECK: No masses. No bruit. LUNGS: Clear to auscultation. Somewhat diminished. HEART: Audible and regular with no murmurs and slightly bradycardic. Her GFR was slightly below normal at 53. BUN 22, creatinine 1.06. BNP was [address] showed findings compatible with mild pulmonary edema. The patient was then given 40 mg of Lasix IV. Lasix also orally was ordered every morning before any solid foods. The patient on the following day lost four pounds. She still has the edema in both legs. Repeat chemistry on 12/20/2017 showed the BNP to be at 157 and Troponin was requested because of the abnormal EKG showing anterior infarct, age undetermined. I do believe that this is an old finding. GFR to rise to 54 from 53. LUNGS: Lungs still remained clear, slightly diminished. HEART: Normal sinus rhythm. ABDOMEN: Unremarkable. No significant changes in the CBC. The patient on the day of discharge did weight 262 pounds, 14 pounds less from admission. The edema in the legs also has regressed. It is now softer. No significant pitting edema. The patient on discharge 12/21/17 was alert, ambulatory and cheerful. She has an appointment with the oncologist for her colon carcinoma at 11 a.m. VITAL SIGNS: Early in the morning of 12/21/17 showed a temperature of 97.7, pulse of 52, blood pressure 112/69, respiratory rate 18, oxygen saturation 99 at room air. The patient is instructed to resume her previous medications. The echocardiogram done during this hospitalization showed some hypokinesia of the septum. The ejection fraction is 52%. This patient does not desire to take the Lasix post hospitalization since it makes her somewhat nauseous. We will discuss that later on at the office on follow up. The patient also had a CT scan of the abdomen and pelvis because of the history of colon carcinoma to rule out any pathology that may have contributed to the leg edema. The CT scan of the abdomen and pelvis showed no acute processes and no signs of any abnormalities or abnormal tumor or masses. PLAN: 1. The patient at discharge then was instructed to resume her previous medications. 2. Avoid any salty food. 3. Avoid any soda, since sodas have sodium. 4. Advised to begin physical exercise, such as walking a short distance only in the beginning. She should stop when she is short of breath and then do the same exercises for the next week or two and increase it after that slowly. 5. The patient is to see me in the office in one week and before if she has any concerns. 6. The patient was weighed at the office scale and weighed 259 pounds and 4 ounces. FINAL DIAGNOSES: 1. CONGESTIVE HEART FAILURE, IMPROVED 2. HYPERTENSION, CONTROLLED 3. BILATERAL LEG AND ANKLE EDEMA, IMPROVED. 4. HISTORY OF CORONARY ARTERY DISEASE, STATUS POST BYPASS 2012 AND 2015 5. HISTORY OF CARDIAC CATHETERIZATION MAY 2017 7. OSTEOARTHRITIS OF THE KNEES WITH TKR RIGHT 10/24/2016 8. MARKEDLY ELEVATED BMI 48 9. HISTORY OF COLON CARCINOMA, STATUS POST RIGHT HEMICOLECTOMY 2011 MTDD
== END 2017-12-21 09:30 | disposition home or self-care (01) | DRG 292 ==
LOC: MEDSURG A 12:03
PROVIDERS: ADMIT General Practice; ATTEND General Practice
DX: I50.9 Heart failure, unspecified (principal); G11.9 Hereditary ataxia, unspecified; Z68.42 Body mass index [BMI] 45.0-49.9, adult; R60.0 Localized edema; I25.10 Atherosclerotic heart disease of native coronary artery without angina pectoris; I51.89 Other ill-defined heart diseases; I25.2 Old myocardial infarction; I10 Essential (primary) hypertension; M17.0 Bilateral primary osteoarthritis of knee; E66.9 Obesity, unspecified; Z90.49 Acquired absence of other specified parts of digestive tract; Z95.1 Presence of aortocoronary bypass graft; Z95.5 Presence of coronary angioplasty implant and graft; Z85.038 Personal history of other malignant neoplasm of large intestine; Z96.651 Presence of right artificial knee joint; Z79.02 Long term (current) use of antithrombotics/antiplatelets; Z79.899 Other long term (current) drug therapy
CPT/HCPCS: 36415; 80053; 82378; 83525; 83880; 84443; 84484; 85025; 93005; 93010

== ENCOUNTER 2017-12-26 15:07 | Outpatient (CLI) | payer OTHER | END 2017-12-26 15:08 | disposition home or self-care (01) | LOC: FCC-LAB 15:07 | PROVIDERS: ATTEND General Practice | DX: N18.3 Chronic kidney disease, stage 3 (moderate) (principal); I25.810 Atherosclerosis of coronary artery bypass graft(s) without angina pectoris; I10 Essential (primary) hypertension; Z79.891 Long term (current) use of opiate analgesic; Z86.008 Personal history of in-situ neoplasm of other site | CPT/HCPCS: 36415; 80053; 80306; 80307; 85025 ==

== ENCOUNTER 2017-12-26 21:49 | Inpatient (IN) ==
[2017-12-26] MEDS: SODIUM CHLORIDE 1,000 ML IV SCH (22:46)
[2017-12-26 22:51] VITALS: BMI 40.3
--- NOTE | 2017-12-27 00:17 | DI ---
EXAM: PA and lateral views of the chest. HISTORY: Cough. Shortness of breath. FINDINGS: The bones are unremarkable. There are multiple sternotomy wires. The cardiac silhouette i s mildly enlarged. The pulmonary vasculature is within normal limits. The costophrenic angles are c lear. There are calcified granulomas. No infiltrate or consolidation. Impression: Cardiomegaly.
[2017-12-27] MEDS ORDERED: NORCO 10-325 PO STA ×2 (00:50→15:02)
[2017-12-27] MEDS: SODIUM CHLORIDE 1,000 ML IV SCH ×5 (00:57→16:48)
[2017-12-27] MEDS: PLAVIX PO SCH (10:30)
[2017-12-27] MEDS ORDERED: KLONOPIN PO STA (15:01)
[2017-12-27] MEDS ORDERED: NORCO 7.5-325 ONE (15:10)
[2017-12-27] MEDS ORDERED: HYDROCODONE ACETAMIN PO PRN (18:11)
[2017-12-27] MEDS: DEXTROSE 5%-LR IV SOLUTION 1,000 ML IV SCH (18:55)
[2017-12-27] MEDS ORDERED: NORCO 10-325 ONE (19:42)
[2017-12-27] MEDS: KLONOPIN PO SCH (20:12)
[2017-12-28] MEDS ORDERED: NORCO 10-325 ONE (00:17)
[2017-12-28] MEDS: DEXTROSE 5%-LR IV SOLUTION 1,000 ML IV SCH (06:09)
[2017-12-28] MEDS: KLONOPIN PO SCH ×3 (08:24→21:53)
[2017-12-28] MEDS: NORCO 10-325 PO PRN ×2 (08:24→16:35)
[2017-12-28] MEDS: PLAVIX PO SCH (08:24)
[2017-12-28] MEDS ORDERED: NON-FORMULARY MEDICATION (Cholecalciferol (Vitamin D3) [Vitamin D3] 50,000 UNIT) PO SCH (17:15)
[2017-12-28] MEDS ORDERED: NON-FORMULARY MEDICATION (Trazodone Hcl [Trazodone Hcl] 100 MG) PO SCH (21:00)
[2017-12-28] MEDS ORDERED: NON-FORMULARY MEDICATION (Rosuvastatin Calcium [Crestor] 40 MG) PO SCH (21:00)
[2017-12-28] MEDS ORDERED: CRESTOR ONE (21:51)
[2017-12-28] MEDS ORDERED: DESYREL ONE (21:51)
[2017-12-29] MEDS: NORCO 10-325 PO PRN ×2 (02:39→10:24)
[2017-12-29 05:06] VITALS: BP 145/74; TEMP 97.7
[2017-12-29] MEDS ORDERED: SYNTHROID PO SCH (06:30)
[2017-12-29] MEDS ORDERED: ASPIRIN CHEWABLE PO SCH (08:00)
[2017-12-29] MEDS: KLONOPIN PO SCH (08:19)
[2017-12-29] MEDS: PLAVIX PO SCH (08:20)
[2017-12-29] MEDS ORDERED: ZESTRIL PO SCH (09:00)
[2017-12-29] MEDS ORDERED: NON-FORMULARY MEDICATION (Lisinopril [Lisinopril] 20 MG) PO SCH (09:00)
[2017-12-29] MEDS ORDERED: CRESTOR PO SCH (21:00)
[2017-12-29] MEDS ORDERED: DESYREL PO SCH (21:00)
[2017-12-30] MEDS ORDERED: SYNTHROID PO SCH (06:30)
--- NOTE | 2018-01-03 15:10 | HP ---
DATE OF SERVICE: 12/26/17 CHIEF COMPLAINT: Generalized weakness and drowsiness HISTORY OF PRESENT ILLNESS: The patient was recently discharged from the hospital 12/21/17 because of bilateral leg edema. She also had a rapid weight gain, 25 pounds in 20 days. The patient during the admission had two weight measurements 276 and 10 ounces and 262 pounds 5.6 ounces on the floor. The patient while in the office claimed that she had not drank any except two or three yellow yellow cans. She had not had any solid foods. The patient did go to sleep recently while sitting in the chair in the examining room. Chemistry was done plus CBC including a drug screening. The patient's EGFR is markedly low at 16, BUN elevated 0.6 and creatinine 2.96. The patient was contacted by me and advised admission. Problem either this is perirenal sinus she had not been drinking very much liquids since discharge or acute kidney injury. The patient at the time of her discharge on 12/21/[address] had an [address] with Dr[address] Zhang a medical oncologist for her colon carcinoma. PAST PERSONAL HISTORY: This patient had colon carcinoma resected, right hemicolectomy 2011, cholecystectomy and appendectomy at age 14, cardiac bypass surgery 2012 and 2015 , cardiac catheterization and stent application May 2017, right TKR October 2016. The patient is also hypertensive. She had a previous total abdominal hysterectomy. She had two previous C-sections. The patient had colonoscopy February 2017 and endoscopy February 2017. FAMILY HISTORY: Son had colon carcinoma operated. He also had melanoma. Brother had carcinoma and at age 41. Positive history of cardiac disease in the family. There is also a history of seizure disorder in the family. History of cardiac disease also is in the family and the father also had malignancy. Brother had CVA. Paternal neuromuscular disease, ataxia, as well as muscular dystrophy. SOCIAL HISTORY: The patient a and had remarried since the demise of her . She never did smoke and no alcoholic beverages. MEDICATIONS: Vitamin D 50,000 unit monthly Crestor 40mg at bedtime Aspirin 81mg daily Plavix 75mg daily Lisinopril 20mg daily Levothyroxine 50mcg daily Trazodone 100mg at bedtime Clonazepam 1.5mg three times a day Hydrocodone/APAP 10/325 one tablet three times a day as needed ALLERGIES: PPI, nausea Gabapentin Eggs, vomiting but not cooked eggs or eggplant. Lactose, vomiting Morphine makes her crazy in the head Steroids Penicillin REVIEW OF SYSTEMS: CONSTITUTIONAL: The patient is drowsy but arousable. No fever. No chills. 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 Denies any significant headaches and no seizure disorder or syncopal episode. VISUAL: No double vision, double vision or transient loss of vision. AUDITORY: denies any pain, drainage or tinnitus in both the ears. Hearing is adequate RESPIRATORY: The patient has no significant cough or shortness of breath. She claims to tire very easily with exertion. CARDIOVASCULAR: Denies any chest pain or chest tightness. The patient had recent echocardiogram with left ventricle ejection fraction of 52%. She had coronary artery disease and did undergo two cardiac bypass surgeries. She also had cardiac catheterization and stent subsequent to the surgeries. GASTROINTESTINAL: No dysphagia. Appetite is poor, she had not had any solids according to her since discharge of 12/21 to 12/26/17. She only had two or three cans of soda a day. GENITOURINARY: Denies any pain on urination. She has not urinated very much. MUSCULOSKELETAL: The patient has chronic lumbar pain as well as knee. The right knee has been replaced ENDOCRINE: No polyuria or polydipsia but the patient hypothyroid on replacement therapy, Levothyroxine. INTEGUMENT: Denies any rash or pleuritis HEMATOLOGIC: No history of prolonged bleeding PSYCHIATRIC: The patient is drowsy but responsive. PHYSICAL EXAMINATION: GENERAL: We have a 57 year old female admitted to the hospital because of elevated BUN, creatinine and markedly depressed GFR, 16. The patient had not been eating and was drinking Mellow Yellow only about 2-32 cans a day since 12-21 till now. She had been to Dr. Zhang on 12/21/17 after her discharge. She had blood test done at the doctors office for followup. VITAL SIGNS: Temperature 98.1, pulse 60, blood pressure 112/60 left 104/58 right , respiratory rate 16 and oxygen saturation is 98 at room air. 5'2" weighing 220 pounds 7.3 ounces. The patient on discharge weighed 262 5.6 ounces on HEAD: Unremarkable, scalp has no active dermitis. FACE: Symmetrical and equal with no facial weakness. No redness and no remarkably tenderness to palpation in the frontal maxillary sinus areas. EYES: Pupils equal/reactive to light. 4mm in size. Conjunctivae slightly pale. Sclerae not icteric. MOUTH: Unremarkable. THROAT: No inflammation, tumors or exudate. NECK: No masses. No bruit. No tenderness. No rigidity. CHEST: Symmetrical and equal with good expansion LUNGS: Breath sounds are heard in both sides but diminished. No rales or wheezing. HEART: Audible and regular with good tones. No murmurs. ABDOMEN: Soft with no remarkably tenderness. Scar from previous surgeries. No ventral herniation. Bowel sounds are active. No bruit. EXTERNAL GENITALIA: Not examined RECTAL: Not done LOWER EXTREMITIES: Edematous legs and ankles but no significant pitting edema. Pedal pulses are absent. UPPER EXTREMITIES: Symmetrical and equal ASSESSMENT: 1. Acute kidney injury versus prerenal azotemia 2. Significant weight loss 262 to 220 pounds in 6 days 3. History of colon carcinoma, operated 4. History of hypothyroidism, replaced 5. History of coronary artery disease, status post bypass times two 6. Cardiac catheterization with stent application 7. History of hypertension 8. History of depression 9. Elevated BMI MTDD
[2018-01-05] MEDS ORDERED: DRISDOL PO SCH (09:00)
--- NOTE | 2018-01-16 10:19 | DS ---
DATE OF SERVICE: 12/29/17 PATIENT IDENTIFICATION: 57 year old female who was recently discharged from the hospital 12/21 because of edema on both lower extremities, mild pulmonary edema of chest CT and remarkable echocardiogram with 52% ejection fraction left ventricular. The patient on discharge on 12/21/17 was scheduled to see the oncologist that morning and the patient was discharged to go to that office. The patient claimed that she did go to the office and blood tests were done. We do not have a copy of the blood tests that was done by Dr. Zhang. HOSPITAL COURSE: The patient on admission claimed to have had no solid foods and only two to three cans of Mellow Yellow a day since discharge until admission. The patient was seen at the office and was mostly drowsy and at one point did go to sleep. The cook chef was removing blood. Labs done that day showed markedly diminished GFR with elevated creatinine and BUN prompting admission to the hospital. This patient had a contrast medium injected for a CT scan of the abdomen and pelvis with contrast to rule out any obstructive problems causing the edema in both lower extremities because of her history of colon carcinoma. The patient's drug screen did show Oxycodone and yet this patient is not on Oxycodone. The Oxycodone was present in the urine, as well as in the blood. The patient while in the hospital was given a bolus of normal saline 1000 cc in about an hour. This was then followed by normal saline at 250 cc an hour. The patient's output was monitored on the hour with a Tarango catheter in place. The patient's BUN had been decreasing on the 2nd, 3rd, 4th and 5th hospital day. On 12/29/2017 the BUN was 10 and the creatinine was 0.86 and E GFR of 68. The GFR has gradually increased and on 12/26/17 was 23 and 12/27/17 was 39 and 12/28 was 50 and finally on 12/29/17 it was 68. The phosphorous has returned to normal from 5.4 and the serum magnesium was normal at 1.7 initially. The BNP on 12/26/17 was 119. The patient after hydration showed a decreased total protein below normal and albumin as low as 2.6. The patient had been afebrile throughout her hospital stay. Her blood pressure at times had fluctuated higher than normal and on one occasion the blood pressure 183/74. The patient at discharge was alert, ambulatory and responsive. Her general appearance is good. She is no longer drowsy. VITAL SIGNS: The patient's vital signs at 5:05 a.m. on 12/29/17 showed a temperature of 97.7, pulse 52, blood pressure 145/74, respiratory rate 20, oxygen saturation 98 at room air. LUNGS: Clear to auscultation. HEART: Normal sinus rhythm. LEGS: Still about the same with no significant pitting edema. The patient was instructed to drink plenty of liquids. The problem for the decreased GFR is because of dehydration. The patient's appetite during the hospital stay has been variable eating between 15 to 75% of the meals and sometimes refused. The patient was advised to eat a regular meal, morning, noon and evening and drink plenty of liquids. The patient is to continue the aspirin, vitamin D, Clonazepam, Plavix, Hydrocodone, Levothyroxine, Lisinopril, Crestor, Trazodone. Discontinue Albuterol Sulfate for now. See me 01/02/2018 at the office and call for an appointment. FINAL DIAGNOSES: 1. PRERENAL AZOTEMIA, CORRECTED 2. WEIGHT LOSS OF 40 POUNDS, RAPID. THE PATIENT NOT DRINKING OR EATING. 3. HISTORY OF COLON CARCINOMA, RESECTED RIGHT HEMICOLECTOMY 4. HISTORY OF HYPERTENSION 5. HISTORY OF CORONARY ARTERY DISEASE, STATUS POST BYPASS, WELL CARDIAC CATHETERIZATION AND STENT 6. HYPOTHYROIDISM REPLACED 7. OBESITY WITH ELEVATED BMI PROGNOSIS: Guarded. MTDD
== END 2017-12-29 10:50 | disposition home or self-care (01) | DRG 683 ==
LOC: MEDSURG A 21:49
PROVIDERS: ADMIT General Practice; ATTEND General Practice
DX: N19 Unspecified kidney failure (principal); G11.8 Other hereditary ataxias; F50.89 Other specified eating disorder; R63.4 Abnormal weight loss; R53.1 Weakness; R53.83 Other fatigue; I25.10 Atherosclerotic heart disease of native coronary artery without angina pectoris; F11.90 Opioid use, unspecified, uncomplicated; I10 Essential (primary) hypertension; E03.9 Hypothyroidism, unspecified; E66.9 Obesity, unspecified; Z79.02 Long term (current) use of antithrombotics/antiplatelets; Z79.899 Other long term (current) drug therapy; Z95.1 Presence of aortocoronary bypass graft; Z85.038 Personal history of other malignant neoplasm of large intestine; Z95.5 Presence of coronary angioplasty implant and graft
CPT/HCPCS: 36415; 80053; 80069; 80154; 81001; 82803; 83735; 83880; 84100; 85025; 87081; 87086; 87186; 93005; 93010

== ENCOUNTER 2017-12-30 16:31 | Inpatient (IN) | payer OTHER ==
--- NOTE | 2017-12-30 16:53 | ED.PDOC ---
General ED Provider: Dr. PASCALE ESCOBAR Chief Complaint: Fever Stated Complaint: Patient is a 57 year old femal who was discharged from the hospital yesterday after admission for Acute renal failure due to over diuresis. States that she woke up this morning took her medications then went back to sleep woke up this Pm with fever chills and Dry heaving x 2 also feels weak. Denies any cough or chest pain, Denies any shortness of breath. Time Seen by Physician: 16:50 Mode of Arrival: Wheelchair Information Source: Patient Exam Limitations: No limitations Primary Care Provider: DIDI RODARTECely Seen Within Last 72 Hours for Same Complaint By: In-Patient Facility ( Discharged yesterday Morning. ) Nursing and Triage Documentation Reviewed and Agree: Yes Reviewed sepsis parameters & appropriate labs ordered?: Yes System Inflammatory Response Syndrome: Temp 101F or Greater Sepsis Protocol: For patient's 13 years and over: Temp is 96.8 and below OR 101 and greater Pulse >90 BPM Resp >20/minute Acutely Altered Mental Status Are patient's symptoms suggestive of a new infection, such as: -Pneumonia -Skin, Soft Tissue -Endocarditis -UTI -Bone, Joint Infection -Implantable Device -Acute Abdominal Infection -Wound Infection -Meningitis -Blood Stream Catheter Infection -Unknown System Inflammatory Response Syndrome: Not Applicable Review of Systems - Review Of Systems Constitutional: Reports: Chills, Fever, Loss of appetite Eyes: Reports: No symptoms Ears, Nose, Mouth, Throat: Reports: No symptoms Respiratory: Reports: No symptoms Cardiac: Reports: No symptoms GI: Reports: Nausea, Poor appetite, Vomiting : Reports: No symptoms Musculoskeletal: Reports: No symptoms Skin: Reports: No symptoms Neurological: Reports: Anxiety, Headache All Other Systems: Reviewed and Negative Past Medical History - Past Medical History Previously Healthy: No Endocrine: Reports: None Cardiovascular: Reports: CAD, MO, Hypertension, CHF Respiratory: Reports: COPD Hematological: Reports: None Gastrointestinal: Reports: None Genitourinary: Reports: CKD Neuro/Psych: Reports: Depression, Other (Familial Tremors. ) Musculoskeletal: Reports: Back Pain (chronic lower back) Cancer: Reports: None Last Menstrual Period: none Other Pertinent Past Medical History: STENT PLACEMENT, AND OTHER VARIOUS MEDICAL CONDITIONS. - Surgical History General Surgical History: Reports: CABG (x 2 , 1st done at [facility], [place] one at [facility]. The last one done was in 2017 ), Orthopedic (rt knee replacemet 3-17), Stent Placement (Multple stent palcements) - Family History Family History: Reports: Heart - Social History Smoking Status: Never smoker Hx Substance Use: No Alcohol Screening: None Physical Exam - Physical Exam Appearance: Ill-appearing, Obese Ill-appearing: Moderate Pain Distress: None Neck: Supple Respiratory: Airway patent, Breath sounds clear, Breath sounds equal, Respirations nonlabored Cardiovascular: RRR, Pulses normal, No rub, No murmur GI/: Soft, Nontender, No masses, Bowel sounds normal, No Organomegaly Musculoskeletal: Normal strength, ROM intact, No edema, No calf tenderness Skin: Warm, Dry, Normal color Neurological: Sensation intact, Motor intact, Reflexes intact, Cranial nerves intact, Alert, Oriented Psychiatric: Anxious Interpretation - Radiology Interpretation Radiology Interpretation By: ED Physician Radiology Results: Negative Exam Interpreted: Portable CXR Critical Care Note - Critical Care Note Total Time (mins): 40 Course - Course Hematology/Chemistry: 12/30/17 17:05 12/30/17 17:05 Orders, Labs, Meds: Lab Review 12/30/17 12/30/17 12/30/17 17:05 17:05 17:05 WBC 13.71 H D RBC 3.80 L Hgb 11.3 L Hct 33.0 L MCV 86.8 MCH 29.7 MCHC 34.2 RDW Coeff of Kylee 13.5 Plt Count 152 Immature Gran % (Auto) 0.5 Neut % (Auto) 85.2 Lymph % (Auto) 8.8 L [place] % (Auto) 5.4 Eos % (Auto) 0.0 Baso % (Auto) 0.1 Immature Gran # (Auto) 0.1 Neut # (Auto) 11.7 H Lymph # (Auto) 1.2 [place] # (Auto) 0.7 Eos # (Auto) 0.0 Baso # (Auto) 0.0 Sodium 139 Potassium 3.7 Chloride 106 Carbon Dioxide 21 Anion Gap 15.7 BUN 10 Creatinine 1.16 Estimated GFR (MDRD) 48.00 BUN/Creatinine Ratio 8.62 Glucose 150 H Lactic Acid Calcium 9.0 Total Bilirubin 0.4 AST 13 L ALT 12 Alkaline Phosphatase 103 Total Protein 7.3 Albumin 3.1 L Globulin 4.2 Albumin/Globulin Ratio 0.74 Procalcitonin 2.56 Urine Color Urine Clarity Urine pH Ur Specific [place] Urine Protein Urine Glucose (UA) Urine Ketones Urine Blood Urine Nitrite Urine Bilirubin Urine Urobilinogen Ur Leukocyte Esterase Urine Microscopic RBC Urine Microscopic WBC Ur Squamous Epith Cells Urine Bacteria Influ A Molecular Assay Influ B Molecular Assay 12/30/17 12/30/17 12/30/17 17:05 17:05 17:26 WBC RBC Hgb Hct MCV MCH MCHC RDW Coeff of Kylee Plt Count Immature Gran % (Auto) Neut % (Auto) Lymph % (Auto) [place] % (Auto) Eos % (Auto) Baso % (Auto) Immature Gran # (Auto) Neut # (Auto) Lymph # (Auto) [place] # (Auto) Eos # (Auto) Baso # (Auto) Sodium Potassium Chloride Carbon Dioxide Anion Gap BUN Creatinine Estimated GFR (MDRD) BUN/Creatinine Ratio Glucose Lactic Acid 7.1 Calcium Total Bilirubin AST ALT Alkaline Phosphatase Total Protein Albumin Globulin Albumin/Globulin Ratio Procalcitonin Urine Color Yellow Urine Clarity Clear Urine pH 5.5 Ur Specific [place] 1.020 Urine Protein 1+ Urine Glucose (UA) Negative Urine Ketones Negative Urine Blood 1+ Urine Nitrite Positive Urine Bilirubin Negative Urine Urobilinogen 0.2 Ur Leukocyte Esterase 1+ Urine Microscopic RBC 10-20 Urine Microscopic WBC 10-20 Ur Squamous Epith Cells Not present Urine Bacteria 1+ Influ A Molecular Assay Negative by naat Influ B Molecular Assay Negative by naat Orders Category Date Time Status ED APPLY O2 .ONCE EMERGENCY 12/30/17 16:48 Active ED MIXING SUPERVISOR APPLIED .ONCE EMERGENCY 12/30/17 16:48 Active ED VITAL SIGNS Q1HR EMERGENCY 12/30/17 16:48 Active BLOOD CULTURE (ED ONLY) Stat LAB 12/30/17 18:25 Received BLOOD CULTURE Stat LAB 12/30/17 17:23 Received CBC W/ AUTO DIFF Stat LAB 12/30/17 17:05 Completed COMPREHENSIVE METABOLIC PANEL Stat LAB 12/30/17 17:05 Completed FLU A/B MOLECULAR Stat LAB 12/30/17 17:05 Completed LACTIC ACID Stat LAB 12/30/17 17:05 Completed PROCALCITONIN Stat LAB 12/30/17 17:05 Completed RAPID STREP SCREEN [MOLECULAR GROUP A STREP] Stat LAB 12/30/17 17:05 Completed URINALYSIS C & S IF INDICATED Stat LAB 12/30/17 17:26 Completed URINE CULTURE Stat LAB 12/30/17 17:51 Received Linezolid [Zyvox] MEDS 12/30/17 18:11 Discontinued 600 mg in 300 ml IV .STK-MED Linezolid [Zyvox] 600 mg MEDS 12/30/17 18:07 Active Premix 300 ml Water 1 bag IV ONCE CHEST, 1V AP ONLY Stat RADS 12/30/17 16:48 Completed Medications Generic Name Dose Route Start Last Admin Trade Name Freq PRN Reason Stop Dose Admin Acetaminophen 650 mg 12/30/17 18:32 Tylenol PO Q4H PRN Fever > 102 Aspirin 81 mg 12/31/17 09:00 Aspirin Chewable PO DAILY REPLACED BY [facility] Clonazepam 0.5 mg 12/30/17 21:00 Klonopin PO TID REPLACED BY [facility] Clopidogrel Bisulfate 75 mg 12/31/17 09:00 Plavix PO DAILY REPLACED BY [facility] Enoxaparin Sodium 40 mg 12/31/17 09:00 Lovenox SUBCUT DAILY REPLACED BY [facility] Linezolid 600 mg/ Sterile 300 mls @ 150 mls/hr 12/30/17 18:07 12/30/17 19:03 Water IV 12/30/17 20:06 150 mls/hr ONCE ONE Administration Ceftriaxone Sodium 1 gm/ 50 mls @ 75 mls/hr 12/30/17 21:00 Sodium Chloride IV DAILY REPLACED BY [facility] Lactated Ringer's 1,000 mls @ 100 mls/hr 12/30/17 19:00 12/30/17 19:01 Lactated Ringers IV 100 mls/hr .Q10H ELENO Administration Levothyroxine Sodium 50 mcg 12/31/17 09:00 Synthroid PO DAILY REPLACED BY [facility] Non-Formulary Medication 50,000 unit 12/30/17 18:45 Cholecalciferol (Vitamin D3) [Vitamin D3] PO MONTHLY REPLACED BY [facility] Non-Formulary Medication 1 each 12/30/17 18:38 Hydrocodone-Acetamin 10-325 Mg PO TID PRN BACK PAIN Non-Formulary Medication 20 mg 12/31/17 09:00 Lisinopril [Lisinopril] PO DAILY REPLACED BY [facility] Non-Formulary Medication 40 mg 12/30/17 21:00 Rosuvastatin Calcium [Crestor] PO BEDTIME REPLACED BY [facility] Non-Formulary Medication 100 mg 12/30/17 21:00 Trazodone Hcl [Trazodone Hcl] PO BEDTIME REPLACED BY [facility] Ondansetron HCl 4 mg 12/30/17 18:32 Zofran 4 Mg/2 Ml IVP Q6H PRN Nausea / Vomiting Sodium Chloride 1 syr 12/30/17 18:30 Saline Flush IVF PRN PRN To flush IV Discontinued Medications Generic Name Dose Route Start Last Admin Trade Name Freq PRN Reason Stop Dose Admin Butorphanol Tartrate 1 mg 12/30/17 19:01 Stadol IVP 12/30/17 19:02 ONCE STA Ondansetron HCl 4 mg 12/30/17 18:54 12/30/17 19:00 Zofran 4 Mg/2 Ml IVP 12/30/17 18:55 4 mg ONCE STA Administration Vital Signs: Temp Pulse Resp BP Pulse Ox 12/30/17 17:53 99.8 F H 12/30/17 16:32 101.4 F H 88 20 183/89 H 96 Departure - Departure Time of Disposition: 19:05 Disposition: ADMITTED INPATIENT Discharge Problem: Urinary tract infection Qualifiers: Urinary tract infection type: site unspecified Hematuria presence: with hematuria Qualified Code(s): N39.0 - Urinary tract infection, site not specified ; R31.9 - Hematuria, unspecified Condition: Stable Pt referred to PMD for follow-up: Yes IPMP verified?: No Allergies/Adverse Reactions: Allergies Proton Pump Inhibitors Allergy (Mild, Verified 12/30/17 16:36) Nausea egg Adverse Reaction (Verified 12/30/17 16:36) Vomiting unable to tolerate eggs plan but no problems cooked in foods gabapentin Adverse Reaction (Verified 12/30/17 16:36) lactose Adverse Reaction (Verified 12/30/17 16:36) Vomiting unable to tolerate milk but no problems cooked in foods morphine Adverse Reaction (Verified 12/30/17 16:36) "makes me crazy in the head" Penicillins Adverse Reaction (Verified 12/30/17 18:33) Nausea NO SYNCOPE, NO SWELLING, NO RASH steroids Adverse Reaction (Uncoded 10/17/17 05:33) Home Medications: Ambulatory Orders Cholecalciferol (Vitamin D3) [Vitamin D3] 50,000 unit PO MONTHLY tab-cap Aspirin 81 mg PO DAILY 01/23/17 Rosuvastatin Calcium [Crestor] 40 mg PO BEDTIME 01/23/17 Clopidogrel Bisulfate [Plavix] 75 mg PO DAILY tab-cap 06/13/17
[2017-12-30] MEDS ORDERED: LEVAQUIN 500 MG in PREMIX 100 ML D5W 1 BAG IV STA (17:55)
[2017-12-30] MEDS ORDERED: ZYVOX 600 MG in PREMIX 300 ML WATER 1 BAG IV ONE (18:07)
[2017-12-30] MEDS ORDERED: ZYVOX 600 MG/300 ML BAG IV ONE (18:11)
[2017-12-30] MEDS ORDERED: TYLENOL PO PRN (18:32)
[2017-12-30] MEDS ORDERED: HYDROCODONE ACETAMIN PO PRN (18:38)
[2017-12-30] MEDS ORDERED: NON-FORMULARY MEDICATION (Cholecalciferol (Vitamin D3) [Vitamin D3] 50,000 UNIT) PO SCH (18:45)
--- NOTE | 2017-12-30 18:45 | DI ---
EXAM: Single view of the chest. History: Fever. Comparison: Chest radiograph 12/26/2017 Findings: Heart remains mildly enlarged. Sternotomy wires. No focal consolidation. No appreciable pleural fluid and no pneumothorax. No acute osseous abnormalities. Impression: Mild cardiomegaly without acute disease in the chest.
[2017-12-30] MEDS ORDERED: MORPHINE 2 MG/ML SYRINGE IVP STA (18:50)
[2017-12-30] MEDS ORDERED: ZOFRAN 4 MG/2 ML IVP STA (18:54)
[2017-12-30] MEDS ORDERED: STADOL IVP STA (19:01)
[2017-12-30] MEDS: LACTATED RINGERS 1,000 ML IV SCH (19:01)
--- NOTE | 2017-12-30 19:24 | CT ---
EXAM: CT abdomen pelvis without contrast HISTORY: Fever COMPARISON: CT abdomen pelvis 12/20/2017 and multiple priors TECHNIQUE: Serial axial images of the abdomen pelvis were performed from the lung bases through the inferior pelvis without contrast. These were viewed in multiple planes. FINDINGS: The lung bases demonstrate mild right lower lobe airway thickening. Evaluation is limited due to lack of contrast. The liver is unremarkable. The gallbladder has been resected. The adrenal glands are unremarkable. The spleen is unchanged. The pancreas is unremarkab le. There is left perinephric stranding. There is no hydronephrosis or hydroureter. The right kidn ey is unremarkable. The stomach is distended Small bowel is unremarkable. The colon demonstrates diverticulosis without diverticulitis. There ar e surgical changes in the colon consistent with partial colectomy. There is a small ventral hernia co ntaining a nonobstructing loop of bowel. Urinary bladder is distended. The soft tissues in the pelv is are normal. The osseous structures demonstrate degenerative disease of the spine. IMPRESSION: 1. Mild perinephric stranding of the left kidney without hydronephrosis or hydroureter are concernin g for infection/inflammation. This is not well evaluated due to lack of contrast. 2. Unchanged small ventral abdominal hernia. 3. Prior cholecystectomy and postsurgical changes in the bowel in the midabdomen.
[2017-12-30 19:49] VITALS: BMI 47.0
[2017-12-30] MEDS ORDERED: NON-FORMULARY MEDICATION (Trazodone Hcl [Trazodone Hcl] 100 MG) PO SCH (21:00)
[2017-12-30] MEDS ORDERED: NON-FORMULARY MEDICATION (Rosuvastatin Calcium [Crestor] 40 MG) PO SCH (21:00)
[2017-12-30] MEDS ORDERED: ROCEPHIN 1 GM in SODIUM CHLORIDE 50 ML IV SCH (21:00)
[2017-12-30] MEDS ORDERED: ROCEPHIN ONE (21:34)
[2017-12-30] MEDS ORDERED: CRESTOR ONE (21:34)
[2017-12-30] MEDS ORDERED: DESYREL ONE (21:35)
[2017-12-30] MEDS ORDERED: NORCO 10-325 ONE (21:36)
[2017-12-30] MEDS: KLONOPIN PO SCH (21:44)
[2017-12-31] MEDS ORDERED: NORCO 10-325 ONE (06:47)
[2017-12-31] MEDS: LACTATED RINGERS 1,000 ML IV SCH ×2 (07:28→17:57)
[2017-12-31] MEDS: ZOFRAN 4 MG/2 ML IVP PRN ×3 (08:20→20:57)
[2017-12-31] MEDS: ASPIRIN CHEWABLE PO SCH (08:56)
[2017-12-31] MEDS: PLAVIX PO SCH (08:57)
[2017-12-31] MEDS: SYNTHROID PO SCH (08:57)
[2017-12-31] MEDS: ZESTRIL PO SCH (08:57)
[2017-12-31] MEDS: KLONOPIN PO SCH ×3 (08:58→20:13)
[2017-12-31] MEDS ORDERED: NON-FORMULARY MEDICATION (Lisinopril [Lisinopril] 20 MG) PO SCH (09:00)
[2017-12-31] MEDS ORDERED: LOVENOX SUBCUT SCH (09:00)
[2017-12-31] MEDS: ROCEPHIN 2 GM in SODIUM CHLORIDE 100 ML IV SCH (13:33)
[2017-12-31] MEDS: NORCO 10-325 PO PRN ×2 (15:15→23:27)
[2017-12-31] MEDS: CRESTOR PO SCH (20:13)
[2017-12-31] MEDS: DESYREL PO SCH (20:14)
[2017-12-31] MEDS ORDERED: ROCEPHIN 1 GM in SODIUM CHLORIDE 50 ML IV SCH (21:00)
[2018-01-01] MEDS: LACTATED RINGERS 1,000 ML IV SCH ×2 (03:09→14:31)
[2018-01-01] MEDS: SYNTHROID PO SCH (06:00)
[2018-01-01] MEDS: ROCEPHIN 2 GM in SODIUM CHLORIDE 100 ML IV SCH (08:14)
[2018-01-01] MEDS: KLONOPIN PO SCH ×3 (08:14→20:33)
[2018-01-01] MEDS: NORCO 10-325 PO PRN ×2 (08:15→16:14)
[2018-01-01] MEDS: ZESTRIL PO SCH (08:15)
[2018-01-01] MEDS: ASPIRIN CHEWABLE PO SCH (08:15)
[2018-01-01] MEDS: PLAVIX PO SCH (08:15)
[2018-01-01] MEDS: ZOFRAN 4 MG/2 ML IVP PRN ×2 (08:19→16:13)
[2018-01-01] MEDS: D5%-1/2NS-KCL 20 MEQ/L IV SOL 1,000 ML IV SCH (16:11)
[2018-01-01] MEDS: CRESTOR PO SCH (20:32)
[2018-01-01] MEDS: DESYREL PO SCH (20:33)
[2018-01-02] MEDS: NORCO 10-325 PO PRN ×3 (00:24→16:51)
[2018-01-02] MEDS: D5%-1/2NS-KCL 20 MEQ/L IV SOL 1,000 ML IV SCH ×3 (03:21→21:24)
[2018-01-02] MEDS: SYNTHROID PO SCH (05:38)
[2018-01-02] MEDS: ZOFRAN 4 MG/2 ML IVP PRN (08:17)
[2018-01-02] MEDS: KLONOPIN PO SCH ×3 (08:18→21:24)
[2018-01-02] MEDS: PLAVIX PO SCH (08:18)
[2018-01-02] MEDS: ZESTRIL PO SCH (08:18)
[2018-01-02] MEDS: ASPIRIN CHEWABLE PO SCH (08:18)
[2018-01-02] MEDS: ROCEPHIN 2 GM in SODIUM CHLORIDE 100 ML IV SCH (08:56)
[2018-01-02] MEDS: LEVAQUIN 500 MG in PREMIX 100 ML D5W 1 BAG IV SCH (20:02)
[2018-01-02] MEDS: CRESTOR PO SCH (21:24)
[2018-01-02] MEDS: DESYREL PO SCH (21:24)
[2018-01-03] MEDS: NORCO 10-325 PO PRN ×3 (01:02→17:27)
[2018-01-03] MEDS: SYNTHROID PO SCH (05:37)
[2018-01-03] MEDS: KLONOPIN PO SCH ×3 (08:21→21:01)
[2018-01-03] MEDS: PLAVIX PO SCH (08:21)
[2018-01-03] MEDS: ZESTRIL PO SCH (08:21)
[2018-01-03] MEDS: ASPIRIN CHEWABLE PO SCH (08:21)
[2018-01-03] MEDS: ROCEPHIN 2 GM in SODIUM CHLORIDE 100 ML IV SCH (09:55)
[2018-01-03] MEDS: LEVAQUIN 500 MG in PREMIX 100 ML D5W 1 BAG IV SCH (09:55)
[2018-01-03] MEDS: LEVAQUIN PO SCH (10:04)
[2018-01-03] MEDS: FLORASTOR PO SCH ×2 (10:04→21:01)
[2018-01-03] MEDS: D5%-1/2NS-KCL 20 MEQ/L IV SOL 1,000 ML IV SCH (12:36)
[2018-01-03] MEDS: DESYREL PO SCH (21:00)
[2018-01-03] MEDS: NORVASC PO SCH (21:01)
[2018-01-03] MEDS: CRESTOR PO SCH (21:01)
[2018-01-04] MEDS: NORCO 10-325 PO PRN ×2 (01:35→09:44)
[2018-01-04] MEDS: SYNTHROID PO SCH (06:08)
[2018-01-04] MEDS: LEVAQUIN PO SCH (06:08)
[2018-01-04] MEDS: KLONOPIN PO SCH ×2 (08:13→14:48)
[2018-01-04] MEDS: FLORASTOR PO SCH (08:13)
[2018-01-04] MEDS: ASPIRIN CHEWABLE PO SCH (08:13)
[2018-01-04] MEDS: ZESTRIL PO SCH (08:13)
[2018-01-04] MEDS: PLAVIX PO SCH (08:14)
[2018-01-04] MEDS: NORVASC PO SCH (08:14)
[2018-01-04 14:35] VITALS: BP 143/72; TEMP 98.1
--- NOTE | 2018-01-04 15:23 | HP ---
DATE OF SERVICE: [] CHIEF COMPLAINT: [] SOURCE OF HISTORY: [] HISTORY OF PRESENT ILLNESS: [] PAST PERSONAL HISTORY: [] FAMILY HISTORY: [] SOCIAL HISTORY: [] MEDICATIONS: [] ALLERGIES: [] REVIEW OF SYSTEMS: CONSTITUTIONAL: [] UMBRELLA SUPERVISOR: [] VISUAL: [] AUDITORY: [] RESPIRATORY: [] CARDIOVASCULAR: [] GASTROINTESTINAL: [] GENITOURINARY: [] MUSCULOSKELETAL: [] ENDOCRINE: [] INTEGUMENT: [] HEMATOLOGIC: [] PSYCHIATRIC: [] PHYSICAL EXAMINATION: GENERAL: [] VITAL SIGNS: [] HEAD: [] EYES: Pupils equal/reactive to light. Conjunctivae not pale. Sclerae not icteric. MOUTH: [] THROAT: No inflammation, tumors or exudate. NECK: No masses. No bruit. No tenderness. No rigidity. CHEST: [] LUNGS: [] HEART: Audible and regular with good tones. No murmurs. ABDOMEN: [] EXTERNAL GENITALIA: [] RECTAL: [] LOWER EXTREMITIES: [] UPPER EXTREMITIES: [] ASSESSMENT: 1. [] PLAN: 1. [] MTDD
--- NOTE | 2018-01-05 07:42 | HP ---
DATE OF SERVICE: 12/30/17 CHIEF COMPLAINT: Fever, vomiting, headache and chills. HISTORY OF PRESENT ILLNESS: The patient was just discharged from the hospital yesterday, 12/29/2017, from dehydration and prerenal azotemia. The patient had a Tarango catheter and this was removed. The patient had been afebrile at the time of discharge and had no urinary symptoms. This patient also denies any pain on urination. She woke up at 2 a.m. shivering. The patient in the emergency room was alert and responsive with no acute respiratory distress. The patient denies any burning on urination. After the work-up, the emergency room physician did touch base with me with a possible admission. I did come to the emergency room and exam the patient. I talked to the emergency physician and felt that this patient probably has acute pyelonephritis, since she does not have any cystourethritis with regards to symptoms. I advised a CT scan of the abdomen and pelvis without contrast to look at the kidneys. The patient was then admitted with a diagnosis of pyelonephritis. Urine culture and blood cultures were obtained. The last blood culture was a twin site. PAST PERSONAL HISTORY: Please review the past personal history on admission . The patient was readmitted to the hospital on 12/26/17 because of prerenal azotemia with a GFR of 16 and acute rise of creatinine 2.96 and BUN 26. The patient also had lost some 40 pounds in between. FAMILY HISTORY: Please review the history done on 12/18/2017. SOCIAL HISTORY: Please review the history done on 12/18/17. MEDICATIONS: Prior to this admission: Vitamin D 50,000 units monthly Crestor 40 mg daily Aspirin 81 mg daily Plavix 75 mg daily Lisinopril 20 mg daily Levothyroxine 50 mcg daily Trazodone 100 mg at bedtime Klonopin 0.5 mg three times a day as needed Hydrocodone/APAP 10/325 mg one tablet three times a day as needed. #75 on prescription. ALLERGIES: PPI, egg, Gabapentin, Lactose, Morphine and steroids. The adverse reactions were not severe consisting of nausea, no angioedema or syncope. REVIEW OF SYSTEMS: CONSTITUTIONAL: The patient has fever and chills and fatigue. DESULFURIZER MACHINE: History of ataxia in the family. VISUAL: Denies any double vision, loss of vision or blurred vision. AUDITORY: No tinnitus. Hearing is adequate. No pain or drainage. RESPIRATORY: No cough, no shortness of breath, except with some exertion. CARDIOVASCULAR: Denies any chest pain or chest tightness, but the patient has significant coronary artery disease. She had two previous bypass surgeries and had cardiac catheterization subsequent to it with stent application. GASTROINTESTINAL: The patient's appetite had been variable and had not been eating. She refuses meals before in the hospital. The patient at the time of discharge 12/29/17 was advised to drink plenty of liquids, 6-8 big glasses of water or liquids. No dysphagia. No diarrhea. GENITOURINARY: Denies any pain on urination or frequency. MUSCULOSKELETAL: The patient has chronic back pain and had osteoarthritis of the knees and did undergo replacement of the right knee. ENDOCRINE: The patient has hypothyroidism on replacement, but no polyuria or polydipsia. INTEGUMENT: Denies any rash or pruritus. HEMATOLOGIC: Negative for prolonged bleeding. PSYCHIATRIC: Affect appears to be normal. PHYSICAL EXAMINATION: GENERAL: We have a 57 year old female who was admitted to the hospital because of chills and fever since 2 a.m. This patient was discharged yesterday after admission because of probable KHLOE and diagnosis prerenal azotemia. VITAL SIGNS: The patient's recorded temperature at the emergency room was 101.4. The patient's vital signs on admission to the floor showed a temperature of 99.8. She did weigh 254 pounds in the ER and 257 and 1 ounce on the floor. The patient in the last admission of 12/26/2017 was weighed at 220 pounds. Needs to be solved the wide fluctuation in weight. The blood pressure at 07:28 p.m. on the floor was 120/65, respiratory rate 16, oxygen saturation 96 at room air. HEAD: Unremarkable. Scalp with no active dermatitis. FACE: Symmetrical and equal and somewhat pale. No weakness or either side and no significant tenderness to palpation under pressure in the frontal or maxillary sinus areas. There is no facial erythema. EYES: Pupils equal/reactive to light about 3-4 mm in size. Conjunctivae pale. Sclerae not icteric. MOUTH: Unremarkable. THROAT: No inflammation, tumors or exudate. NECK: No masses. No bruit. No tenderness. No rigidity. CHEST: Symmetrical and equal with good expansion. The median sternotomy scar is noted. BREASTS: Not examined, as well as axilla. I had examined previously. LUNGS: Breath sounds are diminished in both sides, but audible. No rales or wheezing. HEART: Audible and regular with good tones. No murmurs. ABDOMEN: Soft with no significant tenderness. No guarding. Bowel sounds are active. No masses palpable. CVA with no significant tenderness. EXTERNAL GENITALIA: Not examined. PELVIC AND RECTAL: Not performed. LOWER EXTREMITIES: Symmetrical and equal with no significant pitting edema. Pedal pulses absent. UPPER EXTREMITIES: Symmetrical and equal. ASSESSMENT: 1. ACUTE PYELONEPHRITIS WITH PROBABLE BACTEREMIA PLAN: 1. Admission. 2. Antibiotic administration. Broad spectrum. 3. Dispense the antibiotics depending upon the cultures. MTDD
[2018-01-05] MEDS ORDERED: DRISDOL PO SCH (09:00)
--- NOTE | 2018-01-06 10:18 | CONS ---
DATE OF CONSULTATION: 01/02/18 REASON FOR CONSULTATION: Chest pain. HISTORY OF PRESENT ILLNESS: 57-year-old white female hospitalized with urosepsis which is being treated successfuly. The patient is afebrile. This morning the patient had chest pressure, dull ache, unrelated to exertion. It happened while she was laying in bed. There was no shortness of breath, perspiration along with it and no radiation of pain to any other parts of the body. Her telemetry showed sinus rhythm with no ST-T wave change. The patient had EKG done which is unchanged from the one done before. The patient has history of coronary artery disease, coronary artery bypass surgery. REVIEW OF SYSTEMS: (At the present time when I took the patient's history) CONSTITUTIONAL: No night sweats. No fatigue, malaise, lethargy. No fever or chills. She is feeling better. HEENT: Eyes: No visual changes. No eye pain. No eye discharge. ENT: No sinus drainage. No epistaxis. No sinus pain. No sore throat. No odynophagia. No ear pain. No congestion. RESPIRATORY: No cough, no congestion. No hemoptysis. No shortness of breath. CARDIOVASCULAR: No angina symptoms. No CHF symptoms. No atypical chest pain for CAD. No palpitations. No orthopnea. GASTROINTESTINAL: Appetite has improved. No abdominal pain. No nausea or vomiting. No diarrhea or constipation. No hematemesis. No hematochezia. GENITOURINARY: No urgency. No frequency. No dysuria. No hematuria. No obstructive symptoms. No discharge. No pain. No significant abnormal bleeding. MUSCULOSKELETAL: No musculoskeletal pain. No joint swelling. NEUROLOGICAL: No headache. No neck pain. No syncope. No seizures. No dizziness. PSYCHIATRIC: Not anxious. No depression. No suicidal thoughts. No homicidal thoughts. SKIN: No rash. No lesions. No wounds. ENDOCRINE: No unexplained weight loss. No weight gain. HEMATOLOGIC/LYMPHATIC: No anemia. No purpura. No petechiae. No prolonged or excessive bleeding. No palpable lymph nodes. MEDICATIONS: Cholecalciferol Aspirin Rosuvastatin Clopidogrel Lisinopril Levothyroxine Trazodone Clonazepam Hydrocodone ALLERGIES: PROTON PUMP INHIBITOR, EGGS, GABAPENTIN, LACTOSE, MORPHINE, PENICILLIN, STEROIDS PAST MEDICAL HISTORY: Dyslipidemia Hypertension Coronary artery disease Ischemic cardiomyopathy Hypothyroidism Hypertension Generalized osteoarthritis PAST SURGICAL HISTORY: Cholecystectomy 1977 Colon resection 2011 CABG Hysterectomy SOCIAL/PERSONAL/FAMILY HISTORY: Nonsmoker. No alcohol abuse. She is , lives by herself. She does all activity of daily living. PHYSICAL EXAMINATION: GENERAL: The patient is oriented to time, place and person in no distress. VITAL SIGNS: Temperature 98.3, pulse 60, respiratory rate 12, BP 146/78, pulse ox 97%. HEENT: Head normocephalic, atraumatic. Eyes: Extraocular muscles are intact. Pupils are equal, round and reactive to light and accommodation. Ears: No lesions. Nose appeared normal. Throat: No exudate or erythema. NECK: Supple. No JVD, no carotid bruit. No lymphadenopathy or thyromegaly. LUNGS: Decreased breath sounds but clear to auscultation. Percussion note normal. Chest symmetrical. HEART: S1, S2, no S3. Grade I/ systolic murmur. No cyanosis or clubbing. No ascites. Pulses: Dorsalis pedis and posterior tibial pulses +1 bilaterally. ABDOMEN: Soft. Nontender. Bowel sounds active. No CVA tenderness. No mass felt. EXTREMITIES: No pedal edema. Full range of motion of all extremities, equal. NEUROLOGIC: No focal deficit. Cranial nerves II through XII are grossly intact. No headache, no double vision or headache. SKIN: Not dry. Intact. Turgor - normal. LYMPHATIC: No palpable lymph nodes/no lymphedema. MUSCULOSKELETAL: Normal joints with no swelling. Muscle tone is normal. LABS: Hemoglobin 9.5, hematocrit 28, WBC 6,200, normal differential. Creatinine 1, BUN 9, potassium 3.5, glucose 124. EKG sinus rhythm, LVH with strain pattern. Telemetry - no cardiac arrhythmias. Cardiac markers negative. ASSESSMENT: 1. Chest pain seems to be noncardiac. Could be reflux or esophageal spasm. 2. History of coronary artery disease, CABG. 3. Hypertension 4. Dyslipidemia 5. Anemia 6. Generalized osteoarthritis RECOMMENDATIONS: 1. Continue same treatment; same management 2. No change in the medications The case is discussed with the attending. CONDITION: Stable. Will follow for one more day. [facility]ALTHL[facility]
--- NOTE | 2018-01-12 10:09 | CONS ---
DATE OF SERVICE: 01/04/18 CONSULT FOLLOWUP SUBJECTIVE: 57 year old white female seen on consult for chest pain. The patient did not have pain again during her episode. REVIEW OF SYSTEMS: CONSTITUTIONAL: No night sweats. Fatigue and weak but getting better. No fever or chills. HEENT: Eyes: No visual changes. No eye pain. No eye discharge. ENT: No runny nose. No epistaxis. No sinus pain. No sore throat. No odynophagia. No ear pain. No congestion. RESPIRATORY: No cough, no congestion. No hemoptysis. CARDIOVASCULAR: No angina symptoms. No CHF symptoms. No atypical chest pain for CAD. No palpitations. No shortness of breath. GASTROINTESTINAL: No abdominal pain. No nausea or vomiting. No diarrhea or constipation. No hematemesis. No hematochezia. GENITOURINARY: No urgency. No frequency. No dysuria. No hematuria. No obstructive symptoms. No discharge. No pain. No significant abnormal bleeding. MUSCULOSKELETAL: No musculoskeletal pain. No joint swelling. No arthritis. NEUROLOGICAL: No headache. No neck pain. No syncope. No seizures. No dizziness. PSYCHIATRIC: Not anxious. No depression. No suicidal thoughts. No homicidal thoughts. SKIN: No rash. No lesions. No wounds. ENDOCRINE: No unexplained weight loss. No weight gain. HEMATOLOGIC/LYMPHATIC: No anemia. No purpura. No petechiae. No prolonged or excessive bleeding. No palpable lymph nodes. PHYSICAL EXAMINATION: GENERAL: The patient is oriented to time, place and person. HEENT: Head normocephalic, atraumatic. Eyes: Extraocular muscles are intact. Pupils are equal, round and reactive to light and accommodation. Ears: No lesions. Nose appeared normal. Throat: No exudate or erythema. NECK: Supple. No JVD, no carotid bruit. No lymphadenopathy or thyromegaly. LUNGS: Decreased breath sounds but clear to auscultation. Percussion note normal. Chest symmetrical. HEART: S1, S2, no S3. Grade I/ systolic murmurs. No cyanosis or clubbing. No ascites. Pulses: Dorsalis pedis and posterior tibial pulses +1 to +2 both sides. Sinus rhythm with no arrhythmias. ABDOMEN: Soft. Nontender. Bowel sounds active. No CVA tenderness. No mass felt. EXTREMITIES: No edema. Full range of motion of all extremities, equal. NEUROLOGIC: No focal deficit. Cranial nerves II through XII are grossly intact. No headache, no double vision or headache. SKIN: Not dry. Intact. Turgor - normal. LYMPHATIC: No palpable lymph nodes/no lymphedema. MUSCULOSKELETAL: Normal joints with no swelling. Muscle tone is normal. LABS: EKG sinus rhythm, ST-T change and precordial leads unchanged. ASSESSMENT: 1. Chest pain, one episode was atypical 2. History of ischemia cardiomyopathy 3. Coronary artery disease 4. Right now she is being treated for urosepsis which is symptomatic. MTDD
--- NOTE | 2018-01-12 10:11 | CONS ---
Marcos Ball seen on Consult: 01/03/18: Level 01/04/18: Intermediate MTDD
--- NOTE | 2018-01-17 10:06 | DS ---
DATE OF SERVICE: 01/04/18 PATIENT IDENTIFICATION: 57 year old female was discharged the day before on 12/29/2017 after admission because of prerenal azotemia. This patient was admitted 12/18/2017 because of bilateral leg edema and significant weight gain. The patient during that admission had CT scan of the chest which was unremarkable. CT scan of the abdomen and pelvis with contrast showed no significant acute abnormalities and no signs of metastatic disease from the colon carcinoma that was resected about 5-6 years ago. She also had an echocardiogram which appears to be without any significant abnormalities. This patient was discharged 12/11/2017. The patient , soon after discharge, was scheduled to see the oncologist/newspaper vendor for follow up of the colon carcinoma. The patient was followed at the office on and the patient's urine and creatinine were elevated and the E GFR was remarkably decreased, chronic kidney disease stage V at 16. The patient was treated for volume replacement. The subsequent GFR has returned towards prehospitalization level of 12/18/2017. The GFR in fact has even gone higher. This patient claimed that she only had been drinking two to three cans of Mellow Yellow and no food and no other fluids. The patient was discharged with a diagnosis of prerenal azotemia and chronic kidney disease stage III. The patient had a Tarango catheter in place, but this was removed on the day of discharge for urine output monitoring during the course of fluid resuscitation. The patient claimed to have been well until 2 a.m. of 12/30/2017. She had chills. She denied any pain on urination and her temperature upon presentation at the emergency room soon after the chills was 101.4. Urine plus blood cultures were obtained. I did ask the technologist or flat screen worker to get twin sites, meaning one on each side at about the same time. HOSPITAL COURSE: The patient's urine was abnormal. The patient's medications were continued, except Lisinopril and Trazodone. The patient was given Linezolid 600 mg IV in the ER, as well as Rocephin 1 gram. Urine culture and blood culture did grow gram negative rods, e. coli and sensitive to Rocephin. KATT listed 1. The Rocephin was then increased to 2 grams daily. The patient received Lovenox one dose 40 mg subcutaneously. This patient is already on Plavix, as well as aspirin. Adding Lovenox may have a possibility of increasing some sort of bleeding. The patient continued to improve and was encouraged also to drink liquids. Her appetite was poor and she ascribed it to the antibiotics. She had not vomited. The patient's temperature on 12/30/2017 was 101.4. The fever since then had gradually subsided towards normal, except for low grade spikes beginning to 01/04/2018. The patient had a spike of 101.3 on 12/31/17 near midnight. Her blood pressures were fluctuating to normal and slightly elevated to moderate. This patient was encouraged to get out of bed and move around. LUNGS: The lungs remained clear to auscultation throughout the hospital stay. HEART: The heart remained regular with no murmurs. ABDOMEN: Unremarkable, no tenderness. Bowel sounds were active. LOWER EXTREMITIES: The edematous legs has decreased. No significant tenderness in the posterior leg areas, right and left. No new medications. This only medication this patient had for blood pressure was Lisinopril 40 mg daily. Her blood pressure had been normal throughout the day from 01/03 to 01/04 and so no added blood pressure medication was given and the respiratory rate was fluctuating between 60 and 218. The oxygen saturation was satisfactory at room between 97 to 100. The patient at the time of discharge is alert and ambulatory with movement of all extremities. She denies any headaches or chest pain or abdominal pain or problems swallowing. She does not have any pain on urination. VITAL SIGNS: Temperature was 97.4 at 10 a.m., pulse 82, blood pressure 136/63, respiratory rate 18, oxygen saturation 100 at room air. She was given Levaquin 500 mg the day before and her EGFR had remained essentially unchanged or even better. Her appetite has improved on the day before eating 100% or dinner and less on the day of discharge at 25%. LUNGS: Clear to auscultation. HEART: Audible and regular with good tones. This patient was instructed very specifically to drink plenty of water other than the Mellow Yellow. Plenty is about 6 or 8 big glasses of water a day. She is prescribed Levaquin 500 mg to be taken daily and she should see me in the office 01/08/2018. She was given the phone number to call for the appointment. FINAL DIAGNOSES: 1. PYELONEPHRITIS WITH GRAM NEGATIVE RODS BACTEREMIA/E.COLI 2. HISTORY OF PRERENAL AZOTEMIA 3. HISTORY OF COLON CARCINOMA RIGHT SIDE RESECTED 4. HISTORY OF CORONARY ARTERY DISEASE, STATUS POST BYPASS 5. ELEVATED BMI 6. HYPERTENSION The rest of the old diagnosis are the same. PROGNOSIS: Guarded. MTDD
--- NOTE | 2018-01-17 13:46 | CONS ---
DATE OF SERVICE: 01/03/18 CONSULT FOLLOWUP SUBJECTIVE: The patient is doing well with no chest pain. The patient is cardiovascular sears stable. REVIEW OF SYSTEMS: CONSTITUTIONAL: No night sweats. No fatigue, malaise, lethargy. No fever or chills. HEENT: Eyes: No visual changes. No eye pain. No eye discharge. ENT: No runny nose. No epistaxis. No sinus pain. No sore throat. No odynophagia. No ear pain. No congestion. RESPIRATORY: No cough, no congestion. No hemoptysis. CARDIOVASCULAR: No angina symptoms. No CHF symptoms. No atypical chest pain for CAD. No palpitations. No shortness of breath. GASTROINTESTINAL: No abdominal pain. No nausea or vomiting. No diarrhea or constipation. No hematemesis. No hematochezia. GENITOURINARY: No urgency. No frequency. No dysuria. No hematuria. No obstructive symptoms. No discharge. No pain. No significant abnormal bleeding. MUSCULOSKELETAL: No musculoskeletal pain. No joint swelling. No arthritis. NEUROLOGICAL: No headache. No neck pain. No syncope. No seizures. No dizziness. PSYCHIATRIC: Not anxious. No depression. No suicidal thoughts. No homicidal thoughts. SKIN: No rash. No lesions. No wounds. ENDOCRINE: No unexplained weight loss. No weight gain. HEMATOLOGIC/LYMPHATIC: No anemia. No purpura. No petechiae. No prolonged or excessive bleeding. No palpable lymph nodes. PHYSICAL EXAMINATION: HEENT: Head normocephalic, atraumatic. Eyes: Extraocular muscles are intact. Pupils are equal, round and reactive to light and accommodation. Ears: No lesions. Nose appeared normal. Throat: No exudate or erythema. NECK: Supple. No JVD, no carotid bruit. No lymphadenopathy or thyromegaly. LUNGS: Clear to auscultation. Percussion note normal. Chest symmetrical. HEART: S1, S2, no S3. No murmurs. No cyanosis or clubbing. No ascites. Pulses: Dorsalis pedis and posterior tibial pulses +1 to +2 both sides. ABDOMEN: Soft. Nontender. Bowel sounds active. No CVA tenderness. No mass felt. EXTREMITIES: No edema. Full range of motion of all extremities, equal. NEUROLOGIC: No focal deficit. Cranial nerves II through XII are grossly intact. No headache, no double vision or headache. SKIN: Not dry. Intact. Turgor - normal. LYMPHATIC: No palpable lymph nodes/no lymphedema. MUSCULOSKELETAL: Normal joints with no swelling. Muscle tone is normal. ASSESSMENT: 1. Atypical chest pain, seems to be noncardiac. All cardiac markers and EKG unchanged, no evidence of CHF clinically. CONDITION: Stable. MTDD
== END 2018-01-04 16:35 | disposition home or self-care (01) | DRG 690 ==
LOC: ED 16:31 → MEDSURG A 18:15 → UNDOADMIN 18:15
PROVIDERS: ADMIT General Practice; ATTEND General Practice
DX: N10 Acute pyelonephritis (principal); R78.81 Bacteremia; R31.9 Hematuria, unspecified; R50.9 Fever, unspecified; N18.3 Chronic kidney disease, stage 3 (moderate); R79.89 Other specified abnormal findings of blood chemistry; R11.2 Nausea with vomiting, unspecified; I10 Essential (primary) hypertension; E66.9 Obesity, unspecified; I25.10 Atherosclerotic heart disease of native coronary artery without angina pectoris; R07.89 Other chest pain; I25.2 Old myocardial infarction; B96.20 Unspecified Escherichia coli [E. coli] as the cause of diseases classified elsewhere; Z95.5 Presence of coronary angioplasty implant and graft; Z79.02 Long term (current) use of antithrombotics/antiplatelets; Z95.1 Presence of aortocoronary bypass graft; Z16.11 Resistance to penicillins; Z85.038 Personal history of other malignant neoplasm of large intestine
CPT/HCPCS: 36415; 74176; 80048; 80053; 81001; 83605; 84145; 84484; 85025; 87040; 87070; 87081; 87086; 87186; 87493; 87502; 87651; 93005; 93010; 96361; 96365; 96366; 96367; 96375; 97802; 99223; 99233; 99284

== ENCOUNTER 2018-01-10 13:29 | Outpatient (CLI) | payer OTHER ==
--- NOTE | 2018-01-10 16:18 | DI ---
EXAM: Chest two views HISTORY: Pleurodynia COMPARISON: 12/30/2017 TECHNIQUE: Two views of the chest were performed FINDINGS: The lungs are clear. There is no pleural effusion or pneumothorax. The heart is top norm al in size. The mediastinal contour is normal, noting atherosclerosis. Median sternotomy wires. Th ere are no acute abnormalities of the bones. IMPRESSION: No acute cardiopulmonary process.
== END 2018-01-10 13:30 | disposition home or self-care (01) ==
LOC: FCC-LAB 13:29
PROVIDERS: ATTEND General Practice
DX: R07.81 Pleurodynia (principal); N64.4 Mastodynia; N28.9 Disorder of kidney and ureter, unspecified; Z79.899 Other long term (current) drug therapy
CPT/HCPCS: 36415; 80069; 80306; 81001; 87086

== ENCOUNTER 2018-02-02 14:04 | Outpatient (CLI) ==
--- NOTE | 2018-02-02 16:13 | DI ---
Exam: Two views of the chest. Comparison: 01/10/2018 Reason for exam: Bronchitis. FINDINGS: Operative changes are seen after midline sternotomy and CABG. The cardiac silhouette is p rominent in size and not significantly changed from the previous exam. Degenerative disease is seen in the thoracic spine. Impression: No acute cardiopulmonary process.
== END 2018-02-02 14:05 | disposition home or self-care (01) ==
LOC: RAD 14:04
PROVIDERS: ATTEND Family Medicine
DX: J40 Bronchitis, not specified as acute or chronic (principal)

== ENCOUNTER 2018-02-16 16:22 | Outpatient (CLI) | payer OTHER ==
--- NOTE | 2018-02-16 16:53 | DI ---
Exam: Five views of the cervical spine. Comparison: CT cervical spine performed 06/01/2017. Reason for exam: Cervicalgia. FINDINGS: No vertebral body height loss is seen. Similar appearing multilevel degenerative disease with intervertebral body disc space height narrowing and osteophyte formation most notably at C5-6, C 6-7 and C7-T1. These findings do not appear significantly changed when compared to the CT performed on 06/01/2017. The prevertebral soft tissues are within normal limits. The dens appears intact on the open-mouth od ontoid view. Impression: 1. No acute fracture or listhesis in the cervical spine. 2. Multilevel degenerative disease. Similar in appearance to the previous CT.
--- NOTE | 2018-02-16 16:58 | DI ---
EXAM: Four views of the lumbar spine HISTORY: Radiculopathy. COMPARISON: CT lumbar spine 06/11/2016 FINDINGS: There is surgical clips in right upper quadrant. There is no acute compression fracture wi th no subluxation. There are anterior posterior disc osteophytes. There is moderate facet arthropat hy. Lumbosacral junction is narrowed. There is questionable neural foraminal narrowing at L4-L5 and L5-S1. The soft tissues are otherwise unremarkable. IMPRESSION: No acute compression fracture or subluxation. Multilevel moderate degenerative disease of the lumbar spine similar in appearance to 2016 CT.
== END 2018-02-16 16:23 | disposition home or self-care (01) ==
LOC: RAD 16:22
PROVIDERS: ATTEND General Practice
DX: M54.16 Radiculopathy, lumbar region (principal); M54.2 Cervicalgia

== ENCOUNTER 2018-03-14 10:11 | Outpatient (CLI) ==
--- NOTE | 2018-03-14 14:54 | MRI ---
EXAM: MRI lumbar spine without IV contrast. DATE: 03/14/2018. HISTORY: Lumbar radiculopathy. Low back pain and leg. TECHNIQUE: Sagittal and axial T1W and T2W sequences of the lumbar spine along with sagittal IR and c oronal T2W sequences were obtained using 1.2 Sarah magnet. No IV contrast. Note: Grainy appearance on several sequences and artifacts on axial images limit sensitivity. COMPARISON: LS spine series 02/16/2018. MRI L-spine [address] L-spine 11 June 2016. FINDINGS: There are five [id number] lumbar vertebra. No lumbar scoliosis is evident. A 2.7 mm anterior subluxation of L2 relative to L1, 2.8 mm anterolisthesis of L3 relative to L2, and 2.7 mm a nterolisthesis of S1 relative to L5 are observed. No other subluxation, acute fracture, osseous ps gnancy, or pars interarticularis defect is demonstrated. Osteophytes (some small, some prominent) ar e observed at multiple lower thoracic and lumbar vertebra. Chronic Schmorl's nodes are present at T1 0 through L3. Lumbar vertebra are normal in height. Bone marrow signal is overall normal. Degenera tive endplate changes are most pronounced at L1-2 and L2-3. Mild L1-2, mild L2-3, and moderate L5-S1 disc space narrowing is detected. No acute sacral fracture or stress reaction is identified. SI lyndsey ints reveal no acute sacroiliitis. Conus medullaris terminates at L1. Visible spinal cord is normal . No retroperitoneal lymphadenopathy, paraspinal mass, or aortic aneurysm is detected. Atherosclerotic plaques are present within the aortic wall. Psoas muscles are normal. There is mild to moderate bi lateral posterior paraspinal muscle atrophy the S1 and S2 levels. Visible portions of the liver, spl een, adrenal glands, and kidneys are limited by breathing motion artifacts. A contour bulge in the l eft adrenal sabas near the origin of the lateral limb day may represent a 5.5 x 3.2 mm nodule. Small number of descending colon diverticuli and sigmoid colon diverticuli are revealed. Segmental analysis: T11-12: Sagittal images reveal minor posterior disc bulge and mild facet arthropathy, but no definit mayito central canal stenosis or foraminal stenosis. T12-L1: Midline to right paracentral disc protrusion (2.1 mm AP x 10 mm transverse) and minor facet arthropathy cause triangulation of the canal. Each foramen is patent. L1-2: Minor anterolisthesis of L2, small concentric disc bulge, mild bilateral facet arthropathy, an d minor ligamentum flavum hypertrophy cause mild central canal stenosis and mild/moderate bilateral f oraminal stenoses. L2-3: Minor anterolisthesis of L3, small concentric disc bulge, superimposed midline disc protrusion (3.8 mm AP x 6.7 mm transverse x 7.6 mm behind the L3 superior endplate), mild bilateral facet arthr opathy, and mild ligamentum flavum hypertrophy cause moderate central canal stenosis, mild right fora efren stenosis, and mild/moderate left foraminal stenosis. Left L2 nerve root appears to contact the disc bulge near the lateral margin of the foramen. L3-4: Minor/small concentric disc bulge, minor facet arthropathy, mild ligamentum flavum hypertrophy and dorsal epidural fat cause mild central canal stenosis and mild bilateral foraminal stenoses. L4-5: Small concentric disc bulge, mild bilateral facet arthropathy, and mild ligamentum flavum hype rtrophy cause mild central canal stenosis and mild/moderate narrowing at the opening to each foramen. Right L4 nerve root may contact the disc bulge near the lateral margin of the foramen. L5-S1: Minor anterolisthesis of S1, small concentric disc bulge, moderate right facet arthropathy, a nd mild left facet arthropathy cause minor bilateral foraminal narrowing. No central canal stenosis. Each L5 nerve root appears to contact the disc bulge near the lateral margin of the foramen. IMPRESSIONS: 1. Lumbar spine moderate spondylosis, mild facet arthropathy, minor subluxations, and multilevel DDD . 2. Multilevel lumbar foraminal stenoses. Left L2, right L4, and both L5 nerve roots appear to conta ct disc bulges near the foramen, and may be sources for pain/radiculopathy. 3. Multilevel central canal stenoses (T12-L1: Minor. L1-2: Mild. L2-3: Moderate. L3-4: Mild. L4- 5: Mild). 4. T-L-spine small, chronic Schmorl's nodes. 5. Descending/sigmoid colon diverticulosis. 6. Moderate/marked aortic atherosclerosis. 7. Artifact vs left adrenal lesion (5.5 x 3 mm). This lesion may be too small to adequately charact erize. However symptoms warrant further evaluation, CT scan or MRI without/with IV contrast using ad renal protocol may be helpful.
== END 2018-03-14 10:12 | disposition home or self-care (01) ==
LOC: RAD 10:11
PROVIDERS: ATTEND General Practice
DX: M54.16 Radiculopathy, lumbar region (principal)

== ENCOUNTER 2018-03-16 15:19 | Emergency (ER) | payer OTHER ==
[2018-03-16 15:28] VITALS: BP 121/80; TEMP 99.3; BMI 48.8
[2018-03-16] MEDS ORDERED: TORADOL IM STA (15:53)
[2018-03-16] MEDS ORDERED: NORFLEX IM STA (15:54)
--- NOTE | 2018-03-16 15:57 | ED.PDOC ---
General ED Provider: Dr. PUNEET PÉREZ Chief Complaint: Back Pain Stated Complaint: LOW BACK PAIN Time Seen by Physician: 15:30 (SEEN WITHJAMIE AT ALL TIMES ) Mode of Arrival: Walk-In Information Source: Patient Exam Limitations: No limitations [facility] Nursing and Triage Documentation Reviewed and Agree: Yes Does patient meet sepsis criteria?: No System Inflammatory Response Syndrome: Not Applicable Sepsis Protocol: For patient's 13 years and over: Temp is 96.8 and below OR 101 and greater Pulse >90 BPM Resp >20/minute Acutely Altered Mental Status Are patient's symptoms suggestive of a new infection, such as: -Pneumonia -Skin, Soft Tissue -Endocarditis -UTI -Bone, Joint Infection -Implantable Device -Acute Abdominal Infection -Wound Infection -Meningitis -Blood Stream Catheter Infection -Unknown Musculoskeletal Complaint Exam - Back Pain Complaint/Exam Mechanism of Injury: Reports: No known trauma Onset/Duration: 1 DAY Symptoms Are: Still present Timing: Constant Episodes Lasting: Hours Initial Severity: Mild Current Severity: Mild Location: Reports: Discrete Character: Reports: Aching Aggravating: Reports: Movements Alleviating: Reports: Rest Associated Signs and Symptoms: Denies: Swelling, Redness, Bruising, Fever, Weakness, Numbness, Tingling, Abdominal pain, Flank pain, Bladder incontinence, Bowel incontinence, Weight loss, Pain with weight bearing Related History: Reports: Similar episode TAD Risk Factors: Reports: Hypertension AAA Risk Factors: Reports: Hypertension Cauda Equina Risk Factors: Reports: None Epidural Abcess Risk Factors: Reports: None Related Surgical History: Reports: None Focal Tenderness: No Paraspinal Muscle Tenderness: No Paraspinal Muscle Spasm: No Scoliosis: No Lordosis: No Kyphosis: No Hip Motion Testing Pain: Right Negative, Left Negative Focal Weakness: Present: None Focal Sensory Loss: Present: None Gait: Present: Normal Differential Diagnoses: Strain, Sprain Review of Systems - Review Of Systems Constitutional: Reports: No symptoms Eyes: Reports: No symptoms Ears, Nose, Mouth, Throat: Reports: No symptoms Respiratory: Reports: No symptoms Cardiac: Reports: No symptoms GI: Reports: No symptoms : Reports: No symptoms Musculoskeletal: Reports: Back pain Skin: Reports: No symptoms Neurological: Reports: No symptoms Endocrine: Reports: No symptoms Hematologic/Lymphatic: Reports: No symptoms All Other Systems: Reviewed and Negative Past Medical History - Past Medical History Previously Healthy: No Endocrine: Reports: None Cardiovascular: Reports: CAD, [place], Hypertension, CHF Respiratory: Reports: COPD Hematological: Reports: None Gastrointestinal: Reports: None Genitourinary: Reports: CKD Neuro/Psych: Reports: Depression, Other (Familial Tremors. ) Musculoskeletal: Reports: Back Pain (chronic lower back) Cancer: Reports: None Last Menstrual Period: NA Other Pertinent Past Medical History: STENT PLACEMENT, AND OTHER VARIOUS MEDICAL CONDITIONS. - Surgical History General Surgical History: Reports: CABG (x 2 , 1st done at [facility], Secound one at [facility]. The last one done was in 2017 ), Orthopedic (rt knee replacemet 3-17), Stent Placement (Multple stent palcements) - Family History Family History: Reports: Heart - Social History Smoking Status: Never smoker Hx Substance Use: No Alcohol Screening: None - Immunizations Tetanus Shot up to Date: Yes Physical Exam - Physical Exam Appearance: Well-appearing, No pain distress, Well-nourished Eyes: NESTOR, EOMI, Conjunctiva clear ENT: Ears normal, Nose normal, Oropharynx normal Respiratory: Airway patent, Breath sounds clear, Breath sounds equal, Respirations nonlabored Cardiovascular: RRR, Pulses normal, No rub, No murmur GI/: Soft, Nontender, No masses, Bowel sounds normal, No Organomegaly Musculoskeletal: Normal strength, ROM intact, No edema, No calf tenderness Skin: Warm, Dry, Normal color Neurological: Sensation intact, Motor intact, Reflexes intact, Cranial nerves intact, Alert, Oriented Psychiatric: Affect appropriate, Mood appropriate Critical Care Note - Critical Care Note Total Time (mins): 0 Course - Course Orders, Labs, Meds: Orders Category Date Time Status Ketorolac Tromethamine [Toradol] MEDS 03/16/18 15:53 Discontinued 15 mg IM ONCE STA Orphenadrine Citrate [Norflex] MEDS 03/16/18 15:54 Discontinued 30 mg IM ONCE STA Medications Discontinued Medications Generic Name Dose Route Start Last Admin Trade Name Freq PRN Reason Stop Dose Admin Ketorolac Tromethamine 15 mg 03/16/18 15:53 Toradol IM 03/16/18 15:54 ONCE STA Orphenadrine Citrate 30 mg 03/16/18 15:54 Norflex IM 03/16/18 15:55 ONCE STA Vital Signs: Temp Pulse Resp BP Pulse Ox 03/16/18 15:21 99.3 F 87 16 121/80 97 Departure - Departure Time of Disposition: 15:56 Disposition: HOME SELF-CARE Discharge Problem: Low back pain Qualifiers: Chronicity: acute Back pain laterality: unspecified Sciatica presence: without sciatica Qualified Code(s): M54.5 - Low back pain Instructions: Acute Low Back Pain (ED) Condition: Good Pt referred to PMD for follow-up: Yes IPMP verified?: No Additional Instructions: Please call your Family Physician as soon as possible to schedule a follow-up appointment. Allergies/Adverse Reactions: Allergies Proton Pump Inhibitors Allergy (Mild, Verified 03/16/18 15:30) Nausea egg Adverse Reaction (Verified 03/16/18 15:30) Vomiting unable to tolerate eggs plan but no problems cooked in foods gabapentin Adverse Reaction (Verified 03/16/18 15:30) lactose Adverse Reaction (Verified 03/16/18 15:30) Vomiting unable to tolerate milk but no problems cooked in foods morphine Adverse Reaction (Verified 03/16/18 15:30) "makes me crazy in the head" Penicillins Adverse Reaction (Verified 03/16/18 15:30) Nausea NO SYNCOPE, NO SWELLING, NO RASH steroids Adverse Reaction (Uncoded 10/17/17 05:33) Home Medications: Ambulatory Orders Aspirin 81 mg PO DAILY 01/23/17 Rosuvastatin Calcium [Crestor] 40 mg PO BEDTIME 01/23/17 Clopidogrel Bisulfate [Plavix] 75 mg PO DAILY tab-cap 06/13/17 Disposition Discussed With: Patient
== END 2018-03-16 16:20 | disposition home or self-care (01) ==
LOC: ED 15:19
DX: M54.5 Low back pain (principal)
CPT/HCPCS: 96372; 99282

== ENCOUNTER 2018-05-17 15:46 | Outpatient (CLI) | payer OTHER ==
--- NOTE | 2018-05-17 16:11 | DI ---
EXAM: Four views of the right knee. History: Right knee pain. Comparison: Right knee radiograph 07/11/2016 Findings: No acute fracture or dislocation. Grossly intact right knee arthroplasty hardware. Surgi pilar clips are seen within the surrounding soft tissues. There is diffuse subcutaneous edema. Impression: 1. No acute osseous abnormality. 2. Grossly intact hardware. 3. Diffuse subcutaneous edema/cellulitis
== END 2018-05-17 15:47 | disposition home or self-care (01) ==
LOC: RAD 15:46
PROVIDERS: ATTEND Nurse Practitioner Family
DX: M25.561 Pain in right knee (principal); R53.83 Other fatigue; I10 Essential (primary) hypertension; I25.810 Atherosclerosis of coronary artery bypass graft(s) without angina pectoris
CPT/HCPCS: 36415; 80053; 82607; 84443; 85025

== ENCOUNTER 2018-05-20 15:53 | Emergency (ER) | payer OTHER ==
[2018-05-20 15:55] VITALS: BP 184/97; TEMP 97.8; BMI 44.9
[2018-05-20] MEDS ORDERED: NORCO 7.5-325 PO STA (15:59)
--- NOTE | 2018-05-20 16:22 | DI ---
EXAM: Four view left knee COMPARISON: None HISTORY: Trauma and pain FINDINGS: There is no acute fracture or dislocation. Alignment is anatomic. There is extremely adva nced degenerative change particularly in the medial compartment. There is no soft tissue swelling. No unexpected radio-opaque foreign bodies. Postoperative changes noted in the soft tissues. IMPRESSION: 1. No acute osseous abnormality. 2. Advanced degenerative changes.
--- NOTE | 2018-05-20 16:22 | ED.PDOC ---
General ED Provider: Dr. TEMO MOYER-ER Chief Complaint: Fall Stated Complaint: i hurt my knee Time Seen by Physician: 16:21 Mode of Arrival: Walk-In Information Source: Patient Exam Limitations: No limitations Primary Care Provider: [facility] Nursing and Triage Documentation Reviewed and Agree: Yes Does patient meet sepsis criteria?: No System Inflammatory Response Syndrome: Not Applicable Sepsis Protocol: For patient's 13 years and over: Temp is 96.8 and below OR 101 and greater Pulse >90 BPM Resp >20/minute Acutely Altered Mental Status Are patient's symptoms suggestive of a new infection, such as: -Pneumonia -Skin, Soft Tissue -Endocarditis -UTI -Bone, Joint Infection -Implantable Device -Acute Abdominal Infection -Wound Infection -Meningitis -Blood Stream Catheter Infection -Unknown Musculoskeletal Complaint Exam - Knee Pain Complaint/Exam Mechanism of Injury: Reports: Trauma Onset/Duration: one hour Symptoms Are: Still present Onset of Pain: Reports: Immediate Initial Severity: Mild Current Severity: Moderate Location: Reports: Discrete Character: Reports: Dull, Aching Aggravating: Reports: Movement, Weight bearing, Prolonged standing, Stairs Associated Signs and Symptoms: Reports: Swelling, Bruising Able to Bear Weight: No Knee Findings: Present: Swelling, Ecchymosis, Tenderness, Limited range of motion Bebe Test Positive: No Xavier Test Positive: No Limited Range of Motion: Present: Active, Passive Differential Diagnoses: Contusion, Closed Fracture Review of Systems - Review Of Systems Constitutional: Reports: No symptoms Eyes: Reports: No symptoms Ears, Nose, Mouth, Throat: Reports: No symptoms Respiratory: Reports: No symptoms Cardiac: Reports: No symptoms GI: Reports: No symptoms : Reports: No symptoms Musculoskeletal: Reports: Joint pain Skin: Reports: No symptoms Neurological: Reports: No symptoms Endocrine: Reports: No symptoms Hematologic/Lymphatic: Reports: No symptoms All Other Systems: Reviewed and Negative Past Medical History - Past Medical History Previously Healthy: No Endocrine: Reports: None Cardiovascular: Reports: CAD, AL, Hypertension, CHF Respiratory: Reports: COPD Hematological: Reports: None Gastrointestinal: Reports: None Genitourinary: Reports: CKD Neuro/Psych: Reports: Depression, Other (Familial Tremors. ) Musculoskeletal: Reports: Back Pain (chronic lower back) Cancer: Reports: None Last Menstrual Period: N/A Other Pertinent Past Medical History: STENT PLACEMENT, AND OTHER VARIOUS MEDICAL CONDITIONS. - Surgical History General Surgical History: Reports: CABG (x 2 , 1st done at [facility], [place] one at [facility]. The last one done was in 2017 ), Orthopedic (rt knee replacemet 3-17), Stent Placement (Multple stent palcements) - Family History Family History: Reports: Heart - Social History Smoking Status: Never smoker Hx Substance Use: No Alcohol Screening: None Physical Exam - Physical Exam Appearance: Well-appearing, No pain distress, Well-nourished Pain Distress: Moderate Eyes: NESTOR, EOMI, Conjunctiva clear ENT: Ears normal, Nose normal, Oropharynx normal Neck: Supple Respiratory: Airway patent, Breath sounds clear, Breath sounds equal, Respirations nonlabored Cardiovascular: RRR, Pulses normal, No rub, No murmur GI/: Soft, Nontender, No masses, Bowel sounds normal, No Organomegaly Musculoskeletal: Limited ROM Skin: Warm, Dry, Normal color Neurological: Sensation intact, Motor intact, Reflexes intact, Cranial nerves intact, Alert, Oriented Psychiatric: Affect appropriate, Mood appropriate Interpretation - Radiology Interpretation Radiology Interpretation By: Radiologist Radiology Results: Negative Critical Care Note - Critical Care Note Total Time (mins): 0 Course - Course Orders, Labs, Meds: Orders Category Date Time Status Ice Pack [ED APPLY ICE AFFECTED AREA] .ONCE EMERGENCY 05/20/18 15:58 Active Hydrocodone Bit/Acetaminophen [[place] 7.5-325] MEDS 05/20/18 15:59 Discontinued 1 tab PO ONCE STA KNEE, LEFT 4 VIEWS Stat RADS 05/20/18 15:58 Completed Medications Discontinued Medications Generic Name Dose Route Start Last Admin Trade Name Rileyq PRN Reason Stop Dose Admin Hydrocodone Bitart/Acetaminophen 1 tab 05/20/18 15:59 05/20/18 16:04 [place] 7.5-325 PO 05/20/18 16:00 1 tab ONCE STA Administration Vital Signs: Temp Pulse Resp BP Pulse Ox 05/20/18 15:54 97.8 F 90 18 184/97 H 95 Departure - Departure Time of Disposition: 16:25 Disposition: HOME SELF-CARE Discharge Problem: Contusion of left knee Qualifiers: Encounter type: initial encounter Qualified Code(s): S80.02XA - Contusion of left knee, initial encounter Instructions: Contusion in Adults (ED) Condition: Good Pt referred to PMD for follow-up: Yes IPMP verified?: No Additional Instructions: rest, ice--f/u withj pcp Allergies/Adverse Reactions: Allergies Proton Pump Inhibitors Allergy (Mild, Verified 05/20/18 15:55) Nausea egg Adverse Reaction (Verified 05/20/18 15:55) Vomiting unable to tolerate eggs plan but no problems cooked in foods gabapentin Adverse Reaction (Verified 05/20/18 15:55) lactose Adverse Reaction (Verified 05/20/18 15:55) Vomiting unable to tolerate milk but no problems cooked in foods morphine Adverse Reaction (Verified 05/20/18 15:55) "makes me crazy in the head" Penicillins Adverse Reaction (Verified 05/20/18 15:55) Nausea NO SYNCOPE, NO SWELLING, NO RASH steroids Adverse Reaction (Uncoded 05/20/18 15:55) Home Medications: Ambulatory Orders Aspirin 81 mg PO DAILY 01/23/17 Rosuvastatin Calcium [Crestor] 40 mg PO BEDTIME 01/23/17 Clopidogrel Bisulfate [Plavix] 75 mg PO DAILY tab-cap 06/13/17 Disposition Discussed With: Patient
== END 2018-05-20 16:37 | disposition home or self-care (01) ==
LOC: ED 15:53
DX: S80.02XA Contusion of left knee, initial encounter (principal); W19.XXXA Unspecified fall, initial encounter
CPT/HCPCS: 99283

== ENCOUNTER 2018-06-05 12:27 | Outpatient (CLI) | END 2018-06-05 12:28 | disposition home or self-care (01) | LOC: RHC-LAB 12:27 | PROVIDERS: ATTEND General Practice | DX: R74.0 Nonspecific elevation of levels of transaminase and lactic acid dehydrogenase [LDH] (principal) | CPT/HCPCS: 36415; 80076 ==

== ENCOUNTER 2018-06-18 15:50 | Outpatient (CLI) | payer OTHER | END 2018-06-18 15:51 | disposition home or self-care (01) | LOC: LAB 15:50 | PROVIDERS: ATTEND Internal Medicine Hematology & Oncology | DX: C18.2 Malignant neoplasm of ascending colon (principal) | CPT/HCPCS: 36415; 80053; 82728; 83540; 83550; 85025 ==

== ENCOUNTER 2018-06-19 14:52 | Outpatient (CLI) | payer OTHER | END 2018-06-19 14:53 | disposition home or self-care (01) | LOC: RHC-LAB 14:52 | PROVIDERS: ATTEND General Practice | DX: R05 Cough (principal); R53.83 Other fatigue; J02.9 Acute pharyngitis, unspecified | CPT/HCPCS: 87502; 87651 ==

== ENCOUNTER 2018-06-19 15:17 | Inpatient (IN) | payer OTHER ==
[2018-06-19 15:57] VITALS: BMI 44.5
[2018-06-19] MEDS: KLONOPIN PO SCH ×2 (16:25→20:53)
[2018-06-19] MEDS: NORCO 10-325 PO PRN (16:25)
--- NOTE | 2018-06-19 16:59 | CT ---
EXAM: CT abdomen pelvis without contrast HISTORY: Elevated liver enzymes COMPARISON: 12/20/2017 TECHNIQUE: CT abdomen pelvis performed without intravenous contrast. Coronal and sagittal reformatt ed images obtained. FINDINGS: Patchy bibasilar ground-glass opacities. Coronary calcifications with suggestion of stent s. No free air. No acute abnormalities of the bones. Degenerative change in the spine. Evaluation organ parenchyma limited without contrast. Liver appears normal. Patient status post cholecystectom y. Pancreas unremarkable. Spleen unremarkable. Adrenals unremarkable. Kidneys unremarkable. Aort a normal in caliber. Moderate atherosclerosis. Bladder unremarkable. Patient status post hysterect ashly. No lymphadenopathy or ascites. Stomach unremarkable. No dilated loops small bowel. Small bow el small bowel anastomosis. There is a small ventral hernia containing a minimal nonobstructive por tion of small bowel. Small fat-containing periumbilical hernia. Patient status post right hemicolec emmanuel. No obstruction. IMPRESSION: 1. No acute abnormality identified in the abdomen pelvis. 2. Patchy bibasilar ground-glass may represent mild infectious/inflammatory pneumonitis. 3. Status post right hemicolectomy. 4. Small ventral hernia containing a minimal portion of nonobstructed small bowel. 5. Coronary calcifications. Atherosclerosis.
[2018-06-19] MEDS: DUONEB NEB SCH (19:55)
[2018-06-19] MEDS ORDERED: ROCEPHIN 2 GM in SODIUM CHLORIDE 100 ML IV SCH (20:30)
[2018-06-19] MEDS ORDERED: ROCEPHIN ONE (20:37)
[2018-06-19] MEDS: DESYREL PO SCH (20:53)
[2018-06-19] MEDS: CRESTOR PO SCH (20:53)
[2018-06-19] MEDS: FLONASE NAS SCH (20:53)
[2018-06-19] MEDS ORDERED: NON-FORMULARY MEDICATION (Trazodone Hcl [Trazodone Hcl] 100 MG) PO SCH (21:00)
[2018-06-19] MEDS ORDERED: NON-FORMULARY MEDICATION (Fluticasone Propionate [Flonase Allergy Relief] 2 SPRAY) NS SCH (21:00)
[2018-06-19] MEDS ORDERED: NON-FORMULARY MEDICATION (Rosuvastatin Calcium [Crestor] 40 MG) PO SCH (21:00)
[2018-06-20] MEDS: NORCO 10-325 PO PRN ×3 (04:02→19:27)
[2018-06-20] MEDS: DUONEB NEB SCH ×4 (04:56→20:25)
[2018-06-20] MEDS ORDERED: SYNTHROID PO SCH (06:30)
[2018-06-20] MEDS ORDERED: ASPIRIN EC PO SCH (08:00)
[2018-06-20] MEDS: PLAVIX PO SCH (08:52)
[2018-06-20] MEDS: FLONASE NAS SCH ×2 (08:53→20:25)
[2018-06-20] MEDS: KLONOPIN PO SCH ×3 (08:53→20:25)
[2018-06-20] MEDS ORDERED: NON-FORMULARY MEDICATION (Lisinopril [Lisinopril] 20 MG) PO SCH (09:00)
[2018-06-20] MEDS ORDERED: ASPIRIN PO SCH (09:00)
[2018-06-20] MEDS ORDERED: ZESTRIL PO SCH (09:00)
--- NOTE | 2018-06-20 11:32 | DI ---
EXAM: PA and lateral views of the chest HISTORY: Cough. COMPARISON: Chest x-ray 02/02/2018 and multiple priors FINDINGS: The cardiomediastinal silhouette is unchanged with intact sternotomy wires. There is no p neumothorax or pleural effusion. There is no consolidation, nodule or mass. The osseous structures demonstrate degenerative disease of the spine. There are surgical clips in the upper abdomen. IMPRESSION: No acute cardiopulmonary process
--- NOTE | 2018-06-20 11:58 | HP ---
DATE OF SERVICE: 06/19/18 CHIEF COMPLAINT: Cough, productive with purulent sputum and fatigue. HISTORY OF PRESENT ILLNESS: The patient claimed that she began coughing about three days ago and is now productive with brownish sputum. The patient on examination at the office had inspiratory squeaks on both lung corea, more on the left. The patient had a previous chemistry done at the request of the chip person/oncologist and the patient now has an elevated AST and ALT which was not present previously. Because of the cough and elevation of the AST and ALT, admission was felt necessary to look at the case further. PAST PERSONAL HISTORY: Congestive heart failure, improved, compensated. Acute kidney injury, prerenal azotemia 12/26/17 GFR 16. The patient had previous myocardial infarction and did undergo cardiac catheterization by cardiac bypass graft 2012 and then repeated on 08/27/15. The patient in 2014 had a cardiac catheterization with stent application. She had an other cardiac catheterization with stent in 2016. The patient also had a history of TIA in 2014. Previous right hemicolectomy 2011 because of colon carcinoma. Cholecystectomy 1976 as well as appendectomy. The patient had two Cesearean sections. The patient had a recent right TKR. 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 It runs in members of the family in [place]. FAMILY HISTORY: A son had colon carcinoma and operated. Also had melanoma. Brother had carcinoma and at age 41. Father had malignancy and . Positive history of heart disease in the family. Brother had CVA and other members of the family had diabetes and heart disease. They carry neuromuscular progressive disease with ataxia probably Friedreich's. SOCIAL HISTORY: The patient is and resides with her . She never did smoke. She doesn't drink any alcoholic beverages. MEDICATIONS: (PRIOR TO THIS ADMISSION) Crestor 40 mg daily Plavix 75 mg daily Ipratropium Albuterol - 3 cc ampule for nebulization four times a day, completed Flonase nasal two sprays twice a day in both nostrils Lisinopril 20 mg daily Hydrocodone/APAP 10/325 one tablet three times a day as needed Clonazepam 1/2 mg tablet three times a day Trazodone 100 mg daily at bedtime Levothyroxine 50 mcg daily Aspirin 325 mg daily ALLERGIES: PPI, EGG, GABAPENTIN, LACTOSE, MORPHINE AND PENICILLIN (I am not certain that the patient is allergic to Morphine since she was given intravenous Morphine on recent admission where Morphine was already listed as an allergy). REVIEW OF SYSTEMS: CONSTITUTIONAL: The patient denied any fever or chills but has fatigue. MANAGER INFRASTRUCTURE: The patient has progressive muscular dystrophy with ataxia. No syncopal episode, no seizure disorder. VISUAL: Denies any blurred vision, double vision or loss of vision. AUDITORY: Hearing is adequate. No tinnitus. No drainage. No pain. RESPIRATORY: The patient has cough with productive sputum but no hemoptysis. CARDIOVASCULAR: Denies any chest pain or chest tightness. GASTROINTESTINAL: The patient's appetite is acceptable. Denies nausea or anorexia. No dysphagia. No abdominal pain. No change in bowel habits. No blood in the stool. GENITOURINARY: Denies any pain or burning on urination. MUSCULOSKELETAL: The patient had a right TKR. She has chronic lumbar pain. She is taking a narcotic analgesics for the chronic lumbar pain. ENDOCRINE: The patient is hypothyroid with replacement therapy. No polyuria or polydipsia. BMI is elevated. INTEGUMENT: Denies any rash, pruritus or ecchymosis. HEMATOLOGIC: Negative. PSYCHIATRIC: Appears to be normal to down or decreased. PHYSICAL EXAMINATION: GENERAL: 57-year-old female who began experiencing cough in the last three days now becoming productive. The patient had inspiratory squeaks in both lung corea, more on the left side. The liver enzymes were elevated. Reason for elevation unknown. This test was done yesterday at the direction of the chip person/oncologist for her colon carcinoma. VITAL SIGNS: On admission, temperature 97.8, pulse 72, BP left 153/99, right 164 /93, respiratory rate 20, oxygen saturation on room air 99. She is 243 lbs and 9.77 ozs at 5'2". BMI 44.6. HEAD: Unremarkable. Scalp: No active dermatitis. Face is symmetrical and equal with no facial weakness, no tenderness in the frontomaxillary sinus areas to palpation and/or pressure. EYES: Pupils equal/reactive to light about 3.5 mm in size or more. Conjunctivae not pale. Sclerae not icteric. EARS: Unremarkable. MOUTH: Unremarkable. THROAT: No inflammation. No tumors or exudate. Rapid strep and A&B were done at the office and were negative. NECK: No adenitis. No masses. No bruit. No tenderness. No rigidity. CHEST: Symmetrical and equal with good expansion with mediasternotomy incision. The patient has had two open heart surgeries. LUNGS: Breath sounds are heard on both sides, diminished with inspiratory squeaks in both lung corea, left more than right. HEART: Audible and regular with good tones. No murmurs. ABDOMEN: Pendulous, soft with scar from previous surgery. No remarkable tenderness. No guarding. Bowel sounds are active. No masses palpable. EXTERNAL GENITALIA: Not examined. PELVIC/RECTAL: Not performed. LOWER EXTREMITIES: Symmetrical and equal with some edema. Pedal pulses absent. UPPER EXTREMITIES: Symmetrical and equal. ASSESSMENT: 1. ACUTE EXACERBATION OF CHRONIC BRONCHITIS. 2. HEPATITIS, ETIOLOGY UNDETERMINED. 3. HISTORY OF COLON CARCINOMA, STATUS POST RIGHT HEMICOLECTOMY. 4. HISTORY OF ACUTE MYOCARDIAL INFARCTION WITH PREVIOUS CARDIAC BYPASS TIMES TWO. 5. HISTORY OF CARDIAC CATHETERIZATION WITH STENT DEPLOYMENT TIMES TWO, 2014 AND 2017. 6. HISTORY OF CONGESTIVE HEART FAILURE. 7. HISTORY OF FRIEDREICH'S ATAXIA. 8. ELEVATED BMI. 9. HISTORY OF ANEMIA. TIME SPENT: GREATER THAN 65 MINUTES MTDD
[2018-06-20] MEDS: CRESTOR PO SCH (20:25)
[2018-06-20] MEDS: DESYREL PO SCH (20:25)
[2018-06-20] MEDS: ROCEPHIN 2 GM in SODIUM CHLORIDE 100 ML IV SCH (20:25)
[2018-06-20] MEDS: COZAAR PO SCH (20:26)
[2018-06-21] MEDS: NORCO 10-325 PO PRN ×3 (03:47→17:48)
[2018-06-21] MEDS: DUONEB NEB SCH ×4 (05:00→20:05)
[2018-06-21] MEDS: SYNTHROID PO SCH (05:52)
[2018-06-21] MEDS: PLAVIX PO SCH (08:23)
[2018-06-21] MEDS: FLONASE NAS SCH ×2 (08:24→20:49)
[2018-06-21] MEDS: COZAAR PO SCH ×2 (08:24→20:50)
[2018-06-21] MEDS: KLONOPIN PO SCH ×3 (08:24→20:50)
[2018-06-21] MEDS ORDERED: COZAAR PO SCH (09:00)
[2018-06-21] MEDS: ALDACTONE PO SCH (10:08)
[2018-06-21] MEDS: ROCEPHIN 2 GM in SODIUM CHLORIDE 100 ML IV SCH (20:49)
[2018-06-21] MEDS: DESYREL PO SCH (20:50)
[2018-06-21] MEDS: CRESTOR PO SCH (20:50)
[2018-06-22] MEDS: NORCO 10-325 PO PRN ×2 (01:54→10:25)
[2018-06-22] MEDS: DUONEB NEB SCH ×3 (04:48→14:05)
[2018-06-22] MEDS: SYNTHROID PO SCH (05:47)
[2018-06-22] MEDS: COZAAR PO SCH (09:35)
[2018-06-22] MEDS: KLONOPIN PO SCH ×2 (09:35→16:28)
[2018-06-22] MEDS: FLONASE NAS SCH (09:35)
[2018-06-22] MEDS: ALDACTONE PO SCH (09:35)
[2018-06-22] MEDS: PLAVIX PO SCH (09:35)
--- NOTE | 2018-06-22 11:31 | PN ---
DATE OF SERVICE: 06/21/18 SUBJECTIVE: The patient is seen tonight about 8:30 p.m. She was alert without any chest pain. She seemed to be feeling better. She did have chest pain earlier and the electrocardiogram was normal. I had consulted Dr. Jacobs since he is also a patient of Dr. Jacobs. He does follow her up for her cardiology problems. Lungs now have a few rales in the left base much less than yesterday. No wheezing. Both breath sounds are still diminished. Heart is audible and regular with good tones. Repeat EKG tonight showed no acute changes. Total CK is 483 and the CK- MB is 4.290 slightly elevated. The troponin is normal. NT-Pro-BNP is slightly lower 2160 from 2330. Abdomen is unremarkable. The patient's vital signs at 6 p.m. showed a temperature of 97.7, pulse 63, blood pressure 124/77, respiratory rate 18, oxygen saturation 98 on room air. She has been eating fairly well and did eat 100% of dinner in the last two days. Denies any other problems. She is coughing less. MTDD
[2018-06-22 13:57] VITALS: BP 120/74; TEMP 98.5
--- NOTE | 2018-06-25 07:48 | PN ---
DATE OF SERVICE: 06/20/18 SUBJECTIVE: The patient today is alert and coughing less. Denies any abdominal pain or chest pain. Temperature is 97.9, pulse 68, blood pressure 121/65, respiratory rate 18, oxygen saturation 100% at room air. Movement of all extremities and no facial weakness of disparity. LUNGS: Breath sounds are diminished but no rales on the right, some expiratory squeaks occasional on the left lower base. There is fine rales of the left base. HEART: Audible and regular with good tones. ASSESSMENT: 1. Decreasing rales in both lungs corea 2. Now normal ALT and decreasing AST CONDITION: Stable and improved. MTDD
--- NOTE | 2018-06-25 08:11 | PN ---
DATE OF SERVICE: 06/21/18 SUBJECTIVE: The patient today is alert and responsive, not dyspneic or tachypneic. Temperature 97.5, pulse 55, blood pressure 128/62, respiratory rate 14, oxygen saturation 100% at room air. The patient had been complaining of back pain, lumbar and moderately severe rated at 8 on a scale of 0-10. She was given [place] 10-325. Her labs today showed slightly lower WBC 4,160, hgb 10, hct 30.7. Plt count normal 177,000. BUN 18, creatinine 1.39, EGR 39. Total protein and Albumin low. Calcium normal. The patient did eat about 75% of dinner. The patient has indwelling catheter. There is no cyanosis. LUNGS: Breath sounds are diminished bilaterally but no rales or wheezing. HEART: Audible and regular with good tones and no murmurs. ABDOMEN: Unremarkable and no tenderness LEGS: Leg edema, ankles less. MTDD
--- NOTE | 2018-06-25 08:49 | PN ---
DATE OF SERVICE: 06/22/18 SUBJECTIVE: The patient had remained afebrile since admission to now. VITAL SIGNS: Temperature 98.1, pulse 69, blood pressure 183/74 higher than the previous blood pressure, respiratory rate 16, oxygen saturation 94 at room air. LUNGS: Still the same, diminished breath sounds but no rales HEART: Audible with good tones. ABDOMEN: Unremarkable LEGS: No tenderness in the calf muscles. Pedal pulses are not palpable. The patient refused dinner. The patient still has an indwelling catheter. This patient had a previous echocardiogram done 12-19-17; left ejection fraction 52% . The patient today is alert and oriented and not dyspneic or tachypneic and denies any significant pain. She does have some lumbar pain radiating to the legs. The [place] does relieve the pain and claimed to allow her to rest. No nausea or anorexia. ABDOMEN: Soft with no remarkable tenderness. Bladder training before removal of the [place] Catheter. LABS: Essentially the same as yesterday, electrolytes slightly higher Chloride but not clinically significant. EGFR has risen from 39 to 50 BUN is down to 16 from 18. Creatinine is 1.11 from 1.39. Repeat urinalysis today is completely unremarkable except for 3+ bacteria. The patient more or less had been hydrated. The EGFR is increasing and the BUN is decreasing. HEART: Normal sinus rhythm LUNGS: Clear to auscultation in both sides although diminished LEGS: No pitting edema on both lower extremities. Pedal pulses are absent. CONDITION: Stable MTDD
--- NOTE | 2018-06-25 11:08 | DS ---
DATE OF SERVICE: 06/22/18 PATIENT IDENTIFICATION: 57 year old female seen at the office initially complaining of cough about three days prior to admission and now becoming productive with brownish sputum. The patient had inspiratory squeaks on both lung corea, more on the left side. The patient had a CMP done yesterday at the request of cashier checker/ oncologist and the patient's AST and ALT were elevated. HOSPITAL COURSE: The patient was admitted because of the cough and elevated AST and ALT and rales on both lung corea, plus squeaks. The patient had previous colon carcinoma 2011, right hemicolectomy. The heart was audible and regular. This patient also had two previous bypass surgeries. Initially CBC showed mild anemia mixed in origin with a normal WBC and platelet count. Chemistry done 06/18/2018 showed elevated AST and ALT. Troponin was normal at 0.029, but the NT Pro BNP was elevated 2,330. Procalcitonin normal at 0.05. Urinalysis unremarkable. The patient's AST has decreased to 64.6 and ALT is now normal at 31.8. Both of these were elevated on 06/18/2018. The NT Pro BNP has decreased slightly to 2,160 on 06/21/2018. A CK was 483.7, CKMB slightly elevated at 4.290. The patient did complain of some chest pain and cardiology consultation was requested and Dr. Jacobs had seen the patient. She is also a patient of Dr. Jacobs's and he follows her cardiac problems. The patient did complain earlier of chest pain, however, the pain has resolved when I made rounds in the evening. The patient's vital signs throughout the hospital stay showed normal temperature, stable pulse rate and cardiac rate and more or less stable blood pressure, normal. Oxygen saturation was between 97 and [address] scan of the abdomen and pelvis was done because of the history of previous colon carcinoma and the elevated AST and ALT. CT scan however of the abdomen and pelvis revealed no significant acute abnormalities. It did see some bibasilar ground glass changes indicating mild infectious or inflammatory disease or pneumonia. Coronary calcifications and atherosclerosis, small ventral hernia containing a minimal portion of the nonobstructive small bowel. Chest x-ray showed no acute cardiopulmonary process. The patient at the time of discharge was alert, ambulatory with movement of all extremities without any tenderness in the calf muscles. RESPIRATORY: no shortness of breath. The cough has more or less resolved. This patient was given Rocephin 2 grams IV daily. The squeaks that were present on admission on the th was less on the 14th and only present on the left base and just a few on the 15th. The patient lungs on the 16th was clear on both sides with no wheezing, although diminished. HEART: Audible and regular with good tones. network consultant, Dr. Jacobs, felt that this patient has no cardiac problems and she is ready to be discharged from his standpoint. The patient did not have any chest pain at the time of discharge and no cough and no shortness of breath. The patient's CBC on 06/22/2018 is further down from where it was on admission 10 from 11.7. The WBC and platelet count remained normal. The AST now is normal, as well as the ALT and the NT Pro BNP is down further to 1,720 from 2, 160 the day before. This patient was given Aldactone and the Lisinopril was discontinued and replaced with Losartan 50 mg twice a day. This was done in anticipation that maybe this patient will require an Entresto if the patient's congestive problems will persist. PLAN: 1. The patient's new medications on this discharge consisted of Losartan 50 mg daily twice a day, Aldactone 25 mg daily. 2. Stop the Lisinopril and continue the rest of the medications of Clonazepam, Plavix, Flonase, Hydrocodone/APAP and Ipratropium/Albuterol 0.5/3 nebulization four times a day. 3. The patient is to see me in follow up at the clinic on 06/26/2018 at 11 a.m. 4. This patient should have CBC and a CMP at that time to monitor the potassium in the presence of Aldactone. FINAL DIAGNOSES: 1. CONGESTIVE HEART FAILURE 2. ELEVATED AST AND ALT SECONDARY TO #1 3. HYPERTENSION BY HISTORY CONTROLLED 4. HISTORY OF COLON CARCINOMA, STATUS POST RIGHT HEMICOLECTOMY 2011 5. CORONARY ARTERY DISEASE, STATUS POST MYOCARDIAL INFARCTION AND POST CARDIAC BYPASS TIMES TWO 6. HISTORY OF CARDIAC CATHETERIZATION, POST BYPASS WITH STENT APPLICATION 2014 AND 2016 7. HISTORY OF CONGESTIVE HEART FAILURE 8. HISTORY OF SUN'S ATAXIA 9. ELEVATED BMI 10. HISTORY OF MODERATE ANEMIA, ETIOLOGY UNDETERMINED NOTE: We will need to know the left ventricular ejection fraction in order to categorize the heart failure. PROGNOSIS: Guarded to poor. TIME SPENT: GREATER THAN 30 MINUTES MTDD
--- NOTE | 2018-06-25 13:16 | PN ---
DATE OF VISIT: 06/20/18 The patient is alert and claimed to be feeling somewhat better. The chest x- ray does not show any acute cardiopulmonary processes. The lungs now has no inspiratory squeaks, which she had yesterday. The right now is clear, although diminished. There are fine rales in the left lower base. No expiratory wheezing. Hepatitis panel is negative and the CT scan of the abdomen and pelvis showed no acute liver problems to explain the elevated AST and ALT. The repeat liver panel now shows a normal ALT at 31.8 and the AST is down to 64.6 from 150 plus. We will repeat the NT Pro BNP tomorrow to see if this has decreased. VITAL SIGNS: Today at 1:25 p.m. showed a temperature of 98.6, pulse 61, blood pressure 143/80, respiratory rate 16, oxygen saturation 98 at room air. MTDD
--- NOTE | 2018-06-25 14:34 | CONS ---
DATE OF SERVICE: 06/21/18 CONSULT FOLLOWUP --- ( DR. KARIMI SAYS IT IS ALSO HANDWRITTEN ) SUBJECTIVE: The patient was seen and examined today on consultation because of chest pain, chest tightness, mainly with deep breathing. The patient's chest tightness is non exertional. The patient has been hospitalized for the past few days with acute bronchitis. REVIEW OF SYSTEMS: CONSTITUTIONAL: No night sweats. No fatigue, malaise, lethargy. No fever or chills. HEENT: Eyes: No visual changes. No eye pain. No eye discharge. ENT: No runny nose. No epistaxis. No sinus pain. No sore throat. No odynophagia. No ear pain. No congestion. RESPIRATORY: The patient says she is feeling better as far as bronchitis is concerned. She had productive cough. No congestion. No hemoptysis. CARDIOVASCULAR: No angina symptoms. No symptoms consistent with coronary insufficiency or CHF. No atypical chest pain for CAD. No palpitations. No shortness of breath. GASTROINTESTINAL: No abdominal pain. No nausea or vomiting. No diarrhea or constipation. No hematemesis. No hematochezia. GENITOURINARY: No urgency. No frequency. No dysuria. No hematuria. No obstructive symptoms. No discharge. No pain. No significant abnormal bleeding. MUSCULOSKELETAL: No musculoskeletal pain. No joint swelling. No arthritis. NEUROLOGICAL: No headache. No neck pain. No syncope. No seizures. No dizziness. PSYCHIATRIC: Not anxious. No depression. No suicidal thoughts. No homicidal thoughts. SKIN: No rash. No lesions. No wounds. ENDOCRINE: No unexplained weight loss. No weight gain. HEMATOLOGIC/LYMPHATIC: No anemia. No purpura. No petechiae. No prolonged or excessive bleeding. No palpable lymph nodes. PHYSICAL EXAMINATION: GENERAL: The patient is oriented to time, place and person. HEENT: Head normocephalic, atraumatic. Eyes: Extraocular muscles are intact. Pupils are equal, round and reactive to light and accommodation. Ears: No lesions. Nose appeared normal. Throat: No exudate or erythema. NECK: Supple. No JVD, no carotid bruit. No lymphadenopathy or thyromegaly. LUNGS: Clear to auscultation. Percussion note normal. Chest symmetrical. HEART: S1, S2, no S3. Grade II/ systolic murmur. No cyanosis or clubbing. No ascites. Pulses: Dorsalis pedis and posterior tibial pulses +1 bilaterally. ABDOMEN: Soft. Nontender. Bowel sounds active. No CVA tenderness. No mass felt. EXTREMITIES: Trace pedal edema. Full range of motion of all extremities, equal. NEUROLOGIC: No focal deficit. Cranial nerves II through XII are grossly intact. No headache, no double vision or headache. SKIN: Not dry. Intact. Turgor - normal. LYMPHATIC: No palpable lymph nodes/no lymphedema. MUSCULOSKELETAL: Normal joints with no swelling. Muscle tone is normal. EKG sinus rhythm, right bundle branch type of pattern unchanged. Cardiac markers negative. Telemetry sinus rhythm. Rate 80/min. Systolic blood pressure stays around 100 to 110. ASSESSMENT: 1. CHEST TIGHTNESS WITH COUGH AND CONGESTION. VERY UNLIKELY TO BE RELATED TO CORONARY INSUFFICIENCY. 2. HISTORY OF CHF. 3. HISTORY OF CORONARY ARTERY BYPASS SURGERY TIMES TWO. 4. ISCHEMIC CARDIOMYOPATHY. 5. HISTORY OF TIA. RECOMMENDATIONS: 1. Agree with Crestor. The patient has been switched to Cozaar. 2. Continue Aspirin and Plavix. 3. Continue antibiotics, steroids and nebs. CONDITION: STABLE. Thanks for the referral. FORREST
== END 2018-06-22 18:45 | disposition home or self-care (01) | DRG 202 ==
LOC: MEDSURG B 15:17
PROVIDERS: ADMIT General Practice; ATTEND General Practice
DX: J20.9 Acute bronchitis, unspecified (principal); I25.810 Atherosclerosis of coronary artery bypass graft(s) without angina pectoris; Z68.42 Body mass index [BMI] 45.0-49.9, adult; J44.1 Chronic obstructive pulmonary disease with (acute) exacerbation; I10 Essential (primary) hypertension; K75.9 Inflammatory liver disease, unspecified; I25.2 Old myocardial infarction
CPT/HCPCS: 36415; 80053; 80074; 81001; 82550; 82553; 83880; 84145; 84484; 85025; 87070; 93005; 93010; 94640

== ENCOUNTER 2018-07-20 15:23 | Inpatient (IN) | payer OTHER ==
[2018-07-20 15:52] VITALS: BMI 46.0
[2018-07-20] MEDS ORDERED: NORCO 10-325 PO PRN (18:49)
[2018-07-20] MEDS ORDERED: FLONASE NAS ONE (20:36)
[2018-07-20] MEDS ORDERED: CRESTOR ONE (20:36)
[2018-07-20] MEDS ORDERED: DESYREL ONE (20:37)
[2018-07-20] MEDS: ENTRESTO 24 MG-26 MG TABLET PO SCH (20:57)
[2018-07-20] MEDS: KLONOPIN PO SCH (20:57)
[2018-07-20] MEDS: NORCO 10-325 PO PRN (20:57)
[2018-07-20] MEDS ORDERED: NON-FORMULARY MEDICATION (Trazodone Hcl [Trazodone Hcl] 100 MG) PO SCH (21:00)
[2018-07-20] MEDS ORDERED: NON-FORMULARY MEDICATION (Fluticasone Propionate [Flonase Allergy Relief] 2 SPRAY) NS SCH (21:00)
[2018-07-20] MEDS ORDERED: NON-FORMULARY MEDICATION (Rosuvastatin Calcium [Crestor] 40 MG) PO SCH (21:00)
--- NOTE | 2018-07-20 22:04 | DI ---
EXAM: Chest PA and lateral HISTORY: Bilateral leg edema. COMPARRISON: 06/20/2018 FINDINGS: The heart is normal in size. Operative changes of prior CABG is present. Pulmonary vascula rity is within normal limits. No focal airspace opacity or pleural effusion is seen. Osseous structur es are unremarkable. Multiple surgical clips overlie the upper abdomen. IMPRESSION: No acute cardiopulmonary findings. No pulmonary edema. Prior CABG.
[2018-07-21] MEDS: SYNTHROID PO SCH (06:02)
[2018-07-21] MEDS: NORCO 10-325 PO PRN ×3 (06:14→21:56)
[2018-07-21] MEDS ORDERED: ASPIRIN EC PO SCH (08:00)
[2018-07-21] MEDS: PLAVIX PO SCH (08:42)
[2018-07-21] MEDS: ENTRESTO 24 MG-26 MG TABLET PO SCH ×2 (08:42→21:55)
[2018-07-21] MEDS: KLONOPIN PO SCH ×3 (08:43→21:56)
[2018-07-21] MEDS: FLONASE NAS SCH ×2 (08:44→21:58)
[2018-07-21] MEDS ORDERED: SYNTHROID PO SCH (09:00)
[2018-07-21] MEDS ORDERED: ASPIRIN PO SCH (09:00)
[2018-07-21] MEDS: ALDACTONE PO SCH (12:57)
[2018-07-21] MEDS ORDERED: LASIX IVP SCH (21:00)
[2018-07-21] MEDS ORDERED: COZAAR PO SCH (21:00)
[2018-07-21] MEDS ORDERED: LASIX ONE (21:17)
[2018-07-21] MEDS: DESYREL PO SCH (21:55)
[2018-07-21] MEDS: CRESTOR PO SCH (21:56)
[2018-07-21] MEDS: DUONEB NEB SCH ×2 (23:18→23:19)
[2018-07-22] MEDS: DUONEB NEB SCH ×4 (04:55→21:17)
[2018-07-22] MEDS: SYNTHROID PO SCH (06:12)
[2018-07-22] MEDS: NORCO 10-325 PO PRN ×3 (06:16→22:47)
[2018-07-22] MEDS: PLAVIX PO SCH (08:54)
[2018-07-22] MEDS: FLONASE NAS SCH ×2 (08:54→21:02)
[2018-07-22] MEDS: ASPIRIN EC PO SCH (08:54)
[2018-07-22] MEDS: KLONOPIN PO SCH ×3 (08:54→21:01)
[2018-07-22] MEDS: ENTRESTO 24 MG-26 MG TABLET PO SCH ×2 (08:54→21:01)
[2018-07-22] MEDS: ALDACTONE PO SCH (08:54)
[2018-07-22] MEDS: LASIX IVP SCH (08:55)
[2018-07-22] MEDS: DESYREL PO SCH (21:01)
[2018-07-22] MEDS: CRESTOR PO SCH (21:01)
[2018-07-23] MEDS: DUONEB NEB SCH ×3 (04:43→14:15)
[2018-07-23] MEDS: SYNTHROID PO SCH (05:55)
[2018-07-23] MEDS: NORCO 10-325 PO PRN ×2 (07:27→15:32)
--- NOTE | 2018-07-23 08:32 | US ---
EXAM: Bilateral lower extremity venous Doppler History: Bilateral lower extremity pain and swelling. Technique: Multiple sonographic images through the bilateral lower extremities were obtained. Color duplex Doppler was used to interrogate vascular flow. Findings: The bilateral common femoral, greater saphenous, profunda, superficial femoral, popliteal, peroneal, posterior tibial and anterior tibial veins demonstrate spontaneous flow with normal compre ssion and normal augmentation. Impression: No sonographic evidence for deep venous thrombosis
[2018-07-23] MEDS: ALDACTONE PO SCH (08:39)
[2018-07-23] MEDS: FLONASE NAS SCH (08:39)
[2018-07-23] MEDS: ASPIRIN EC PO SCH (08:39)
[2018-07-23] MEDS: KLONOPIN PO SCH ×2 (08:39→14:30)
[2018-07-23] MEDS: PLAVIX PO SCH (08:39)
[2018-07-23] MEDS: ENTRESTO 24 MG-26 MG TABLET PO SCH (08:40)
[2018-07-23] MEDS: LASIX IVP SCH (10:23)
[2018-07-23] MEDS ORDERED: BACTRIM DS 800/160 MG PO SCH (11:00)
[2018-07-23 14:17] VITALS: BP 126/74; TEMP 97.9
--- NOTE | 2018-07-26 10:51 | CONS ---
DATE OF CONSULTATION: 07/21/18 REASON FOR CONSULTATION: Weight gain and fluid retention HISTORY OF PRESENT ILLNESS: 57 year old white female who is morbidly obese and has multiple medical problems like coronary artery disease, dyslipidemia, hypertension, hypothyroidism, generalized osteoarthritis, anxiety disorder and has weight gain of nearly 15 pounds in past couple of weeks. REVIEW OF SYSTEMS: CONSTITUTIONAL: No night sweats. No fatigue, malaise, lethargy. No fever or chills. HEENT: Eyes: No visual changes. No eye pain. No eye discharge. ENT: No sinus drainage. No epistaxis. No sinus pain. No sore throat. No odynophagia. No ear pain. No congestion. RESPIRATORY: No cough, no congestion. No hemoptysis.Shortness of breath on exertion as usual. CARDIOVASCULAR: No angina symptoms. No CHF symptoms. No atypical chest pain for CAD. No palpitations. No orthopnea. GASTROINTESTINAL: No abdominal pain. No nausea or vomiting. No diarrhea or constipation. No hematemesis. No hematochezia. GENITOURINARY: No urgency. No frequency. No dysuria. No hematuria. No obstructive symptoms. No discharge. No pain. No significant abnormal bleeding. MUSCULOSKELETAL: No musculoskeletal pain. No joint swelling. NEUROLOGICAL: No headache. No neck pain. No syncope. No seizures. No dizziness. PSYCHIATRIC: Not anxious. No depression. No suicidal thoughts. No homicidal thoughts. SKIN: No rash. No lesions. No wounds. ENDOCRINE: No unexplained weight loss. Weight gain. HEMATOLOGIC/LYMPHATIC: No anemia. No purpura. No petechiae. No prolonged or excessive bleeding. No palpable lymph nodes. MEDICATIONS: Rosuvastatin 40mg PO daily Plavix 75mg PO daily Ipratropium breathing treatment Klonopin Hydrocodone Levothyroxine Trazodone Aspirin Losartan Spironolactone ALLERGIES: Proton pump inhibitor Egg Gabapentin Lactose Morphine Penicillin Steroids. PAST MEDICAL HISTORY/ PAST SURGICAL HISTORY: Coronary artery disease Dyslipidemia Hypertension Hypothyroidism Generalized osteoarthritis Anxiety disorder Chronic lung disease Generalized osteoarthritis SOCIAL/PERSONAL/FAMILY HISTORY: The patient is nonsmoker, no history of alcohol abuse. I have been seeing her on cardiovascular disease every 6 monthly. PHYSICAL EXAMINATION: VITAL SIGNS: Temperature 97.8, pulse 62, respiratory rate 22, blood pressure 110 /56 and pulse ox 99% on 2 liters. HEENT: Head normocephalic, atraumatic. Eyes: Extraocular muscles are intact. Pupils are equal, round and reactive to light and accommodation. Ears: No lesions. Nose appeared normal. Throat: No exudate or erythema. NECK: Supple. No JVP, no carotid bruit. No lymphadenopathy or thyromegaly. LUNGS: Decreased breath sounds with good air entry with few crepitations of the bases mostly dry. Percussion note normal. Chest symmetrical. HEART: S1, S2, no S3. No murmurs. No cyanosis or clubbing. No ascites. Pulses: Dorsalis pedis and posterior tibial pulses +1 . ABDOMEN: Soft. Nontender. Bowel sounds active. No CVA tenderness. No mass felt. EXTREMITIES: Pedal edema 1+ pitting up to the knee. Full range of motion of all extremities, equal. NEUROLOGIC: No focal deficit. Cranial nerves II through XII are grossly intact. No headache, no double vision or headache. SKIN: Not dry. Intact. Turgor - normal. LYMPHATIC: No palpable lymph nodes/no lymphedema. MUSCULOSKELETAL: Normal joints with no swelling. Muscle tone is normal. LABS: HGB 10.5, hct 32, WBC 6,100 normal differential, creatinine 1.2, BUN 17, potassium 3.7. ASSESSMENT: 1. Fluid retention likely from increased salt intake and also from weight gain. 2. Morbidly obese with BMI of 46, sedentary lifestyle. Noncompliant of medication 3. History of CHF 4. Coronary artery disease 5. Hypertension 6. Dyslipidemia 7. Generalized osteoarthritis 8. Chronic lung disease RECOMMENDATIONS: 1. Agreed with Lasix 2. Aldactone needs to be restarted 3. Cozaar will be started on low dose 4. Elevate the legs 5. Cut down on salt intake 6. Weight loss diet discussed 7. Advised to join cardiac rehab 8. Advised to keep legs higher than the hips while the patient is sitting or sleeping. Thanks for referral will follow. FORREST
--- NOTE | 2018-07-26 10:56 | CONS ---
DATE OF SERVICE: 07/22/18 CONSULT FOLLOWUP SUBJECTIVE: The patient is up and about and leg edema is much less. She is feeling better. She is short of breath on minimal exertion as usual. REVIEW OF SYSTEMS: CONSTITUTIONAL: No night sweats. No fatigue, malaise, lethargy. No fever or chills. HEENT: Eyes: No visual changes. No eye pain. No eye discharge. ENT: No runny nose. No epistaxis. No sinus pain. No sore throat. No odynophagia. No ear pain. No congestion. RESPIRATORY: No cough, no congestion. No hemoptysis. CARDIOVASCULAR: No angina symptoms. No CHF symptoms. No atypical chest pain for CAD. No palpitations. No shortness of breath. GASTROINTESTINAL: No abdominal pain. No nausea or vomiting. No diarrhea or constipation. No hematemesis. No hematochezia. GENITOURINARY: No urgency. No frequency. No dysuria. No hematuria. No obstructive symptoms. No discharge. No pain. No significant abnormal bleeding. MUSCULOSKELETAL: No musculoskeletal pain. No joint swelling. No arthritis. NEUROLOGICAL: No headache. No neck pain. No syncope. No seizures. No dizziness. PSYCHIATRIC: Not anxious. No depression. No suicidal thoughts. No homicidal thoughts. SKIN: No rash. No lesions. No wounds. ENDOCRINE: No unexplained weight loss. No weight gain. HEMATOLOGIC/LYMPHATIC: No anemia. No purpura. No petechiae. No prolonged or excessive bleeding. No palpable lymph nodes. PHYSICAL EXAMINATION: VITAL SIGNS: Temperature 98.4, pulse 74, respiratory rate 14, blood pressure 112 /68 and pulse ox 97% HEENT: Head normocephalic, atraumatic. Eyes: Extraocular muscles are intact. Pupils are equal, round and reactive to light and accommodation. Ears: No lesions. Nose appeared normal. Throat: No exudate or erythema. NECK: Supple. No JVD, no carotid bruit. No lymphadenopathy or thyromegaly. LUNGS: Clear to auscultation. Percussion note normal. Chest symmetrical. HEART: S1, S2, no S3. No murmurs. No cyanosis or clubbing. No ascites. Pulses: Dorsalis pedis and posterior tibial pulses +1 to +2 both sides. ABDOMEN: Soft. Nontender. Bowel sounds active. No CVA tenderness. No mass felt. EXTREMITIES: No edema. Full range of motion of all extremities, equal. NEUROLOGIC: No focal deficit. Cranial nerves II through XII are grossly intact. No headache, no double vision or headache. SKIN: Not dry. Intact. Turgor - normal. LYMPHATIC: No palpable lymph nodes/no lymphedema. MUSCULOSKELETAL: Normal joints with no swelling. Muscle tone is normal. LABS: Creatinine 1.1, BUN 16, potassium 3.8. Hgb 10.9 ASSESSMENT: 1. Fluid retention being treated with diuretic Lasix and Aldactone 2. Cardiovascular status is otherwise stable with no real evidence of CHF RECOMMENDATIONS: 1. The patient was explained about losing weight, she is morbidly obese. 2. Advised to cut down on salt intake 3. Elevate the legs 4. Cardiac rehab advised MTDD
--- NOTE | 2018-07-26 10:56 | PN ---
The patient seen on consultation 07/21/18 Followup 07/22/18: Intermediate MTDD
--- NOTE | 2018-09-10 14:42 | HP ---
DATE OF SERVICE: 07/20/18 CHIEF COMPLAINT: Weight gain and bilateral edema, legs. HISTORY OF PRESENT ILLNESS: The patient presented to the office because of the weight gain that was sudden. Again almost 15-16 pounds. She also had significant edema on both lower extremities. The patient had history coronary artery disease with bypass. Lungs however were clear to auscultation in spite of the weight gain. She is unable to explain the sudden weight gain and large edematous legs, bilateral. The patient was then admitted for further diagnosis and consultation with her tractor mechanic helper. 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 It appears to be hereditary seemingly dominate FAMILY HISTORY: Son had colon carcinoma and operated. The son also had melanoma Brother carcinoma and at age 41, CVA Father had malignancy probably colon carcinoma and Member of the family had heart disease Some members of the family has diabetes. Dominant hereditary disease in the family consisting of a neuromuscular dystrophy probably William's ataxia. SOCIAL HISTORY: The patient is and resides with her . She never did smoke and doesn't drink any alcoholic beverages. MEDICATIONS: Crestor 40mg daily Plavix 75mg daily Ipratropium Albuterol Sulfate per nebulizer, mostly finished Flonase nasal two sprays each nostril once or twice a day Hydrocodone/APAP 10-325mg one tablet three times a day as needed Clonazepam 0.5mg three times a day Trazodone 100mg tablet at bedtime Levothyroxine sodium 50mcg daily Aspirin 325mg daily Aldactone 25mg tablet daily Losartan 25mg twice a day ALLERGIES: PPI Egg Gabapentin Lactose Morphine Penicillin REVIEW OF SYSTEMS: CONSTITUTIONAL: The patient denies any fever or chills but claims of experiencing Fatigue which maybe partly due to the neuromuscular disease and maybe some depression. LANDING SIGNAL OFFICER: This patient walks with a walker or with a cane. 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 No syncopal episode and no seizure disorder. This patient had fallen in the past. VISUAL: Denies any double vision, blurred vision or transient loss of vision. AUDITORY: Negative. RESPIRATORY: No significant cough, no shortness of breath with usual exertion. No history of hemoptysis. CARDIOVASCULAR: Denies any chest pain, diaphoresis or nausea. GASTROINTESTINAL: The patient's appetite is good. She denies any nausea, anorexia, dysphagia or abdominal pain. This pain had colon carcinoma that was resected in 2011. GENITOURINARY: Denies any pain on urination. No significant frequency, no urgency. MUSCULOSKELETAL: The patient had degenerative arthritis, mostly affecting the knees. ENDOCRINE: The patient lost some weight but still obese. She does have hypothyroidism as well as diabetes Mellitus. No polyuria or polydipsia. INTEGUMENT: Denies any rash or pleuritis or ecchymosis HEMATOLOGIC: No history of prolonged bleeding with any injury or surgery. No spontaneous bleeding. No history of blood dyscrasias PSYCHIATRIC: Affect appears to be done. PHYSICAL EXAMINATION: GENERAL: 57 year old female admitted to the hospital because of significant weight gain, 15 pounds in about 2 weeks. Also is complaining of bilateral leg edema and her legs are heavier. This patient was admitted for further work up on consultation with her tractor mechanic helper. VITAL SIGNS: Temperature 97.7, pulse 56, blood pressure left 126/77, right 122/ 66, respiratory rate 20, oxygen saturation 99% at room air. 5'2 and recorded to weight 251 pounds 12.2 ounces. HEAD: Unremarkable. Scalp has no active dermatitis. FACE: Symmetrical and equal with no facial weakness. The patient denies any tenderness to palpation under stress in the frontal and maxillary sinus areas. EYES: Pupils equal/reactive to light. Conjunctivae somewhat pale. Sclerae not icteric. About 3mm in size. MOUTH: Unremarkable. THROAT: No inflammation, tumors or exudate. NECK: No masses. No bruit. No tenderness. No rigidity. CHEST: Symmetrical and equal with good expansion. A median sternotomy incision is noted. The patient had two CABG surgery. Breast not examined. LUNGS: Breath sounds are heard in both sides. Diminished but no rales or wheezing. HEART: Audible and regular with good tones. No murmurs. ABDOMEN: Protuberant with scar from the previous operations noted. No significant tenderness. Bowel sounds are active and no bruit. EXTERNAL GENITALIA: Not examined RECTAL: Not performed LOWER EXTREMITIES: Essentially symmetrical and equal with large edema. Scar from the removal of the superficial vein for the bypass in both sides. Pedal pulses are absent. UPPER EXTREMITIES: Symmetrical and equal. ASSESSMENT: 1. Significant weight gain in two weeks, 15 pounds 2. Severe leg edema, bilateral extending to the thigh 3. History of congestive heart failure 4. History of coronary artery disease, status post bypass times two 5. History of cardiac catheterization in between the bypass with stent application 6. History of colon carcinoma right sided, right hemicolectomy, 2011 7. History of TIA 8. William's ataxia progressive. TIME SPENT: GREATER THAN 65 MINUTES MTDD
--- NOTE | 2018-09-13 09:09 | DS ---
DATE OF SERVICE: 07/23/18 PATIENT IDENTIFICATION: 57-year-old female with multiple significant medical conditions was admitted to the hospital because of significant weight gain in two weeks time plus significant edema in both lower extremities. The edema had been more or less chronic and sometimes worse and is non pitting since it had been there for some time. HOSPITAL COURSE: The patient was alert, not dyspneic or tachypneic. The lungs were clear to auscultation on both sides. Heart normal sinus rhythm. Abdomen is unremarkable and there is no edema in the abdominal wall. The patient had moderate anemia and decreased EGFR 42, BUN 18.9, creatinine 1.31. Blood sugar normal 93 on admission. The rest of the chemistries were normal. Urinalysis unremarkable. The patient was noted to have 4+ bacteria. The patient was seen on consultation by Dr. Jacobs her inventory clerk. Assessment was fluid retention likely from increased salt intake as well as weight gain other than fluid. No specific recommendations were given. Doppler studies were done and no sonographic evidence of deep vein thrombosis. The patient was again seen by the consulting inventory clerk on 07/23/18. He recommended to the patient to lose weight, cut down on salt, elevate legs and cardiac rehab. She mentioned the cardiac status is stable. The patient, while in the hospital was given intravenous Lasix. She also was given Bactrim DS because of the E. coli in the urine. I had asked the nurses to make sure the scales are the same and the patient is weighed with the same amount of clothes. If she is weighed in bed, they have to make sure. This patient on admission did weigh 251 lbs, 12.2 ozs. At 1215 the weight is 254 lbs and 3 ozs. On 07/22/18, the weight was recorded at 260 lbs and 2.32 ozs. Another weight determination that day weight was recorded at 253 lbs times two. The patient was recorded at 249 lbs and 0.4 ozs on the day of discharge. The patient does not have a LOOP diuretic and is in home medications. This patient had been placed on Sacubitril 24-26 mg and tolerated the medication without any problems. The patient however required two doses on separate days of Lasix 20 mg IV. Lasix was given daily after an initial dose on 07/21/18. The patient, at time of discharge, was alert and ambulatory. He does need some aid for ambulation because of the Friedreich's ataxia. I did talk to her and inform her that Dr. Jacobs doesn't think that she has any problems with her heart at this time and is not the reason most likely for the weight gain although may be partly but mostly fluid retention secondary to sitting or standing position. BNP on the second hospital day was 605; on 07/22 was 584 and 07/23 was 331. This patient was receiving Lasix but this patient also has some chronic kidney disease, Stage 3, which may have increased the NT-Pro-BNP initially. The patient on the day of discharge has vital signs at 2 p.m. Temperature 97.9, pulse 68, BP 126/74, respiratory rate 20, oxygen saturation 97 on room air. The patient weighed 249 lbs and 0.4 oz. Lungs were clear. Heart is audible with good tones. The swelling in the leg is less. The patient's new medication on discharge: 1. Sacubitril 24/26 one tablet twice a day 2. Bactrim DS one twice a day because of E. coli in the urine by culture The patient should resume the following medications: 1. Aspirin 2. Klonopin 3. Plavix 4. Flonase 5. Hydrocodone/APAP 6. Ipratropium albuterol 7. Levothyroxine 8. Crestor 9. Aldactone 10. Trazodone. The patient should stop taking Losartan since it she is already on Sacubitril - Valsartan. ASSESSMENT: 1. Weight gain significant probably secondary to fluid retention. 2. Bilateral leg edema probably secondary to venous insufficiency (Doppler studies bilateral deep venous system is negative for thrombus). 3. Hypertension - controlled. 4. Hypothyroidism replaced. 5. Coronary artery disease status post bypass times two. 6. Elevated BMI persistent. PROGNOSIS: Poor to guarded. TIME SPENT: GREATER THAN 30 MINUTES MTDD
== END 2018-07-23 17:25 | disposition home or self-care (01) | DRG 948 ==
LOC: MEDSURG B 15:23
PROVIDERS: ADMIT General Practice; ATTEND General Practice
DX: R60.9 Edema, unspecified (principal); R60.0 Localized edema; I10 Essential (primary) hypertension; E03.9 Hypothyroidism, unspecified; I25.10 Atherosclerotic heart disease of native coronary artery without angina pectoris; R27.0 Ataxia, unspecified
CPT/HCPCS: 36415; 80053; 80069; 81001; 83880; 85025; 87081; 87086; 87186; 93005; 93010; 94640; 99223; 99232

== ENCOUNTER 2018-09-06 11:42 | Outpatient (CLI) | payer OTHER ==
[2018-08-13 23:23] VITALS: BMI 40.2
== END 2018-09-06 11:43 | disposition home or self-care (01) ==
LOC: RHC-LAB 11:42
PROVIDERS: ATTEND General Practice
DX: M79.89 Other specified soft tissue disorders (principal); R06.02 Shortness of breath; R10.84 Generalized abdominal pain; M79.604 Pain in right leg
CPT/HCPCS: 36415; 80053; 82272; 83880; 85025

== ENCOUNTER 2018-09-06 12:38 | Outpatient (CLI) | payer OTHER ==
[2018-08-13 23:23] VITALS: BMI 40.2
--- NOTE | 2018-09-06 13:32 | DI ---
Exam: Two views of the chest. Comparison: 08/13/2018. Reason for exam: Short of breath. FINDINGS: Operative changes are seen after midline sternotomy. The cardiac silhouette is prominent in size. No pneumothorax, pleural effusion, or focal consolidation. Impression: No acute cardiopulmonary process with similar appearing cardiomegaly
--- NOTE | 2018-09-06 13:37 | US ---
Exam: Ortega-scale and color duplex Doppler ultrasonographic evaluation of the right and left lower ex tremity venous structures with spectral waveform analysis. Comparison: 08/14/2018. Reason for exam: Swelling and pain. FINDINGS: There is spontaneous flow with compression and augmentation in the right and left common f emoral, greater saphenous, profunda, superficial femoral, popliteal, peroneal, posterior tibial, and anterior tibial veins. A moderate amount of subcutaneous edema is seen in both lower extremities. Impression: No ultrasonographic evidence of thrombus is seen in the right or left lower extremity venous structur es.
== END 2018-09-06 12:39 | disposition home or self-care (01) ==
LOC: RAD 12:38
PROVIDERS: ATTEND General Practice
DX: M79.89 Other specified soft tissue disorders (principal); M79.604 Pain in right leg; R06.02 Shortness of breath

== ENCOUNTER 2018-10-05 12:00 | Outpatient (CLI) | payer OTHER ==
[2018-08-13 23:23] VITALS: BMI 40.2
== END 2018-10-05 12:01 | disposition home or self-care (01) ==
LOC: RHC-LAB 12:00
PROVIDERS: ATTEND General Practice
DX: I50.9 Heart failure, unspecified (principal); I10 Essential (primary) hypertension; I25.810 Atherosclerosis of coronary artery bypass graft(s) without angina pectoris; E03.9 Hypothyroidism, unspecified; N18.3 Chronic kidney disease, stage 3 (moderate); E55.9 Vitamin D deficiency, unspecified
CPT/HCPCS: 36415; 80053; 83880; 85025

== ENCOUNTER 2018-10-10 10:27 | Outpatient (CLI) | payer OTHER ==
[2018-08-13 23:23] VITALS: BMI 40.2
== END 2018-10-10 10:28 | disposition home or self-care (01) ==
LOC: RHC-LAB 10:27
PROVIDERS: ATTEND General Practice
DX: R05 Cough (principal)
CPT/HCPCS: 87502; 87651

== ENCOUNTER 2020-01-01 08:36 | Observation (INO) ==
--- NOTE | 2020-01-01 09:05 | ED.PDOC ---
General ED Provider: Dr. TOYA TIAN MD Chief Complaint: Fall Stated Complaint: mild to mod generalized weakness for one day, slip out of her chair, denies any specific pain or injury, no fever, no emesis, hx cad and htn, hx ataxia, no dm, ambulates w/ a walker Time Seen by Physician: 09:02 Mode of Arrival: Stretcher Information Source: Patient and EMT Primary Care Provider: MAX HERNANDEZ MD Nursing and Triage Documentation Reviewed and Agree: Yes Does patient meet sepsis criteria?: No System Inflammatory Response Syndrome: Not Applicable Sepsis Protocol: For patient's 13 years and over: Temp is 96.8 and below OR 101 and greater Pulse >90 BPM Resp >20/minute Acutely Altered Mental Status Are patient's symptoms suggestive of a new infection, such as: -Pneumonia -Skin, Soft Tissue -Endocarditis -UTI -Bone, Joint Infection -Implantable Device -Acute Abdominal Infection -Wound Infection -Meningitis -Blood Stream Catheter Infection -Unknown Musculoskeletal Complaint Exam Hip/Pelvis Complaint/Exam Location of Pain: Reports Right, Left and Hip Mechanism of Injury: Reports Trauma Onset/Duration: today Symptoms Are: Still present Initial Severity: Mild Current Severity: Mild Location: Denies Radiating Character: Reports Aching Aggravating: Reports Movement Alleviating: Reports Rest Associated Signs and Symptoms: Reports Weakness; Denies Swelling, Redness, Fever, Dizziness, Syncope, Abdominal pain and Knee pain Related History: Reports Similar episode Able to Bear Weight: Yes Pelvis Palpation: Stable Review of Systems Review Of Systems Constitutional: Reports Weakness; Denies Fever Eyes: Denies Vision change Ears, Nose, Mouth, Throat: Denies Epistaxis and Throat pain Respiratory: Denies Short of air Cardiac: Denies Chest pain GI: Denies Abdominal pain : Denies Dysuria Musculoskeletal: Reports Joint pain and Muscle stiffness; Denies Back pain and Neck pain Skin: Denies Bruising Neurological: Denies Cognitive dysfunction and Headache All Other Systems: Other [facility] Medical History (Updated 01/01/20 @ 11:45 by MARIFER PETERS RN) Adult hypothyroidism Anxiety Ataxia CAD (coronary artery disease) Chronic back pain greater than 3 months duration Chronic kidney disease, stage 3 Chronic kidney disease, stage 3 (moderate) Colon cancer Congestive heart failure Difficulty in walking, not elsewhere classified Dyspnea, unspecified Early-onset cerebellar ataxia Heart failure, unspecified History of hysterectomy Hypercalcemia Hyperlipidemia Hypothyroidism Inflammatory liver disease, unspecified Major depressive disorder, recurrent, unspecified Muscle weakness (generalized) [facility] resident Old myocardial infarction Other reduced mobility Pneumonia, unspecified organism Pre-diabetes Pulmonary vascular congestion Family History Mother Ataxia Heart disease Myocardial infarct FATHER Colon cancer Heart disease Myocardial infarct SISTER Heart disease Mentally challenged BROTHER Colon cancer, Onset Age: 43 Heart disease Myocardial infarct 19 CHILD Colon cancer, Onset Age: 30 Social History Smoking and tobacco status: Never smoker Passive smoking exposure: Yes () Who is smoking: other Alcohol intake: never Substance use type: does not use Deidre/yazdanism: OTHER Special deidre needs: No Adopted: No Household members: spouse Housing: other Marital status: M Lives independently: Yes Number of children: 3 Number of grandchildren: 11 Highest education level completed: 10th grade service: No [facility]: No Current occupational status: disabled Pets and animals: Yes (dog) Leisure activites: other History of recent travel: No Sexually active: No Do you think of yourself as: straight/heterosexual Current gender identity: female Seatbelt use: always Drives intoxicated or rides with intoxicated emergency medical technician/driver: No Current diet type/program: regular Caffeine: Yes ([place]) Eating out: rarely or never Water heater temperature set < 120 degrees: Yes Working smoke detector in home: Yes Fire extinguisher in home: Yes Carbon monoxide detector in home: Yes Firearms in home: No What type of physical activity do you participate in?: none Physical activity functional status: assisted ambulation How many days of moderate to strenuous exercise, like a brisk walk, did you do in the last 7 days: 0 Female Reproductive History Menstrual Hx Hysterectomy: Yes Hx Tubal Ligation: No Physical Exam Physical Exam Appearance: Reports Well-appearing Ill-appearing: None Pain Distress: None Eyes: Reports NESTOR, EOMI and Conjunctiva clear ENT: Reports Oropharynx normal Neck: Supple Respiratory: Reports Airway patent and Breath sounds equal Cardiovascular: Reports RRR GI/: Reports Soft and Nontender Musculoskeletal: Reports ROM intact and No edema Skin: Reports Warm and Dry; Denies Cyanotic Neurological: Reports Sensation intact, Motor intact, Cranial nerves intact, Alert and Oriented Psychiatric: Denies Anxious and Depressed Interpretation Radiology Interpretation Radiology Interpretation By: Radiologist Radiology Results: No acute changes Exam Interpreted: Portable CXR Radiology Interpretation By: Radiologist Radiology Results: No acute changes Exam Interpreted: Other Xray Comments: pelvis EKG Interpretation Time of EKG #1: 10:23 Rate: Normal Rhythm: Sinus Ectopy: None Interpretation: LBBB seen 08/10/19 Re-Evaluation Re-Evaluation Time of Re-Evaluation: 10:24 Status: Improved Vital Signs Stable: Yes Appearance: NAD Skin: Warm and Dry Neuro: Alert and Oriented X3 CV: RRR Additional Comments: admit d/w Dr Hernandez for iv hydration of mild rhabdomyolysis and renal insuff Critical Care Note Critical Care Note Total Time (mins): 0 Course Course Hematology/Chemistry: 01/01/20 08:55 01/01/20 08:55 Orders, Labs, Meds: Lab Review 01/01/20 01/01/20 01/01/20 08:55 08:55 08:55 WBC 6.75 RBC 3.67 L Hgb 9.6 L Hct 31.2 L MCV 85.0 MCH 26.2 L MCHC 30.8 L RDW Coeff of Kylee 14.9 H Plt Count 226 Immature Gran % (Auto) 0.6 Neut % (Auto) 63.8 Lymph % (Auto) 25.9 [place] % (Auto) 8.3 Eos % (Auto) 1.0 Baso % (Auto) 0.4 Neut # (Auto) 4.3 Lymph # (Auto) 1.8 [place] # (Auto) 0.6 Eos # (Auto) 0.1 Baso # (Auto) 0.0 Immature Gran # (Auto) 0.0 Sodium 139.7 Potassium 3.64 Chloride 103.6 Carbon Dioxide 29.3 Anion Gap 10.44 BUN 22.9 H Creatinine 2.03 H Estimated GFR (MDRD) 25.00 BUN/Creatinine Ratio 11.28 Glucose 121.9 H Calcium 9.65 Total Bilirubin 0.35 AST 110.2 H ALT 25.3 Alkaline Phosphatase 113.1 Ammonia Total Creatine Kinase 5975.3 H CK-MB (CK-2) 82.400 H* CK-MB (CK-2) % 1.3700 Troponin I 0.014 NT-Pro-B Natriuret Pep 674.000 H Total Protein 8.31 H Albumin 4.16 Globulin 4.15 Albumin/Globulin Ratio 1.00 Urine Color Urine Clarity Urine pH Ur Specific [place] Urine Protein Urine Glucose (UA) Urine Ketones Urine Blood Urine Nitrite Urine Bilirubin Urine Urobilinogen Ur Leukocyte Esterase Urine Microscopic RBC Urine Microscopic WBC Ur Squamous Epith Cells Hyaline Casts Urine Mucus 01/01/20 01/01/20 09:50 10:40 WBC RBC Hgb Hct MCV MCH MCHC RDW Coeff of [place] Plt Count Immature Gran % (Auto) Neut % (Auto) Lymph % (Auto) [place] % (Auto) Eos % (Auto) Baso % (Auto) Neut # (Auto) Lymph # (Auto) [place] # (Auto) Eos # (Auto) Baso # (Auto) Immature Gran # (Auto) Sodium Potassium Chloride Carbon Dioxide Anion Gap BUN Creatinine Estimated GFR (MDRD) BUN/Creatinine Ratio Glucose Calcium Total Bilirubin AST ALT Alkaline Phosphatase Ammonia < 8.7 L Total Creatine Kinase CK-MB (CK-2) CK-MB (CK-2) % Troponin I NT-Pro-B Natriuret Pep Total Protein Albumin Globulin Albumin/Globulin Ratio Urine Color Yellow Urine Clarity Clear Urine pH 5.5 Ur Specific [place] 1.020 Urine Protein 1+ H Urine Glucose (UA) Negative Urine Ketones Negative Urine Blood 2+ H Urine Nitrite Negative Urine Bilirubin Negative Urine Urobilinogen 0.2 Ur Leukocyte Esterase Negative Urine Microscopic RBC 5-10 Urine Microscopic WBC 0-2 Ur Squamous Epith Cells 2-5 Hyaline Casts 0-2 Urine Mucus 1+ Orders Category Date Time Status ADMIT OBSERVATION [PLACE PATIENT OBSERVATION] .TO ADMISSION 01/01/20 10:44 Active MEDSURG (MONITORED BED) EKG-(ED ONLY) Stat CARDIO 01/01/20 08:58 Completed EKG-(IP & OP ONLY) DAILY CARDIO 01/02/20 06:00 Ordered EKG-(IP & OP ONLY) DAILY CARDIO 01/03/20 06:00 Ordered ACTIVITY .Complete BR CARE 01/01/20 10:28 Active INTAKE & OUTPUT Q8HR CARE 01/01/20 10:28 Active Notify RT of Treatment ONCE CARE 01/01/20 10:29 Active TELEMETRY MONITORING TELE CARE 01/01/20 10:28 Active TELEMETRY MONITORING TELE CARE 01/01/20 10:45 Completed VITAL SIGNS Q8HR CARE 01/01/20 10:28 Completed CARDIAC DIET DIETARY 01/01/20 Lunch Ordered ED CATHETER INSERTION AND CARE .ONCE EMERGENCY 01/01/20 10:15 Active AMMONIA Stat LAB 01/01/20 09:50 Completed CBC W/ AUTO DIFF DAILY@0600 LAB 01/02/20 06:00 Ordered CBC W/ AUTO DIFF DAILY@0600 LAB 01/03/20 06:00 Ordered CBC W/ AUTO DIFF Stat LAB 01/01/20 08:55 Completed COMPREHENSIVE METABOLIC PANEL DAILY@0600 LAB 01/02/20 06:00 Ordered COMPREHENSIVE METABOLIC PANEL DAILY@0600 LAB 01/03/20 06:00 Ordered COMPREHENSIVE METABOLIC PANEL Stat LAB 01/01/20 08:55 Completed CREATINE KINASE Q8H LAB 01/01/20 16:30 Ordered CREATINE KINASE Q8H LAB 01/02/20 00:30 Ordered CREATINE KINASE Stat LAB 01/01/20 08:55 Completed NT-PROBNP Stat LAB 01/01/20 08:55 Completed TROPONIN I Q8H LAB 01/01/20 16:30 Ordered TROPONIN I Q8H LAB 01/02/20 00:30 Ordered TROPONIN I Stat LAB 01/01/20 08:55 Completed URINALYSIS C & S IF INDICATED Stat LAB 01/01/20 10:40 Completed Acetaminophen [Tylenol] MEDS 01/01/20 10:28 Active 650 mg PO Q4H PRN Albuterol Inhaler(with Spacer) [Ventolin Hfa (Per Puff- MEDS 01/01/20 14:00 Active with Spacer)] 2 puff IH RTQID Amlodipine Besylate [Norvasc] MEDS 01/01/20 10:30 Discontinued 2.5 mg PO DAILY Amlodipine Besylate [Norvasc] MEDS 01/02/20 09:00 Active 2.5 mg PO DAILY Aspirin [Aspirin EC] MEDS 01/02/20 08:30 Active 325 mg PO DAILYWM Ipratropium Inhaler(Spacer) [Atrovent Hfa Inhaler (Per MEDS 01/01/20 14:00 Active Puff-with Spacer)] 2 puff IH RTQID Lidocaine (Uro-Jet) [Uro-Jet] MEDS 01/01/20 10:15 Discontinued 10 ml [id number] ONCE STA Sodium Chloride 0.9% [Sodium Chloride] 1,000 ml MEDS 01/01/20 10:30 Active IV 75 mls/hr Sodium Chloride 0.9% [Sodium Chloride] 1,000 ml MEDS 01/01/20 10:15 Discontinued IV BOLUS RESUSCITATION STATUS Routine OTHERS 01/01/20 10:28 Ordered CHEST, 1V AP ONLY Stat RADS 01/01/20 08:58 Completed PELVIS & CINDY HIPS Stat RADS 01/01/20 08:58 Completed Medications Generic Name Dose Route Start Last Admin Trade Name Neo PRN Reason Stop Dose Admin Acetaminophen 650 mg 01/01/20 10:28 Tylenol PO Q4H PRN Mild Pain Albuterol Sulfate 2 puff 01/01/20 14:00 01/01/20 14:05 Ventolin Hfa (Per Puff-With Spacer) IH 2 puff RTQID ELENO Administration Amlodipine Besylate 2.5 mg 01/02/20 09:00 Norvasc PO DAILY ELENO Aspirin 325 mg 01/02/20 08:30 Aspirin Ec PO DAILYWM ELENO Sodium Chloride 1,000 mls @ 75 mls/hr 01/01/20 10:30 01/01/20 12:50 Sodium Chloride IV 75 mls/hr .[id number] ELENO Administration Ipratropium [place] 2 puff 01/01/20 14:00 01/01/20 14:05 Atrovent Hfa Inhaler (Per Puff-With Spacer) IH 2 puff RTQID ELENO Administration Sodium Chloride 1 syr 01/01/20 21:00 Saline Flush IVF Q8HR ELENO Discontinued Medications Generic Name Dose Route Start Last Admin Trade Name Neo PRN Reason Stop Dose Admin Amlodipine Besylate 2.5 mg 01/01/20 10:30 01/01/20 12:53 Norvasc PO Not Given DAILY ELENO Sodium Chloride 1,000 mls @ 1,000 mls/hr 01/01/20 10:15 01/01/20 10:33 Sodium Chloride IV 01/01/20 11:14 1,000 mls/hr BOLUS STA Administration Lidocaine HCl 10 ml 01/01/20 10:15 Uro-Jet [id number] 01/01/20 10:16 ONCE STA Vital Signs: Temp Pulse Resp BP Pulse Ox 01/01/20 10:47 65 16 111/55 L 01/01/20 08:36 96.9 F L 84 16 162/94 H 97 Discharge Plan Discharge Patient Disposition: PLACED OBSERVATION Discharge Problem: Acute renal insufficiency Rhabdomyolysis Qualifiers: Rhabdomyolysis type: traumatic Encounter type: initial encounter Qualified Code(s): T79.6XXA - Traumatic ischemia of muscle, initial encounter ED Provider: TOYA TIAN Condition: Stable Discharge Date/Time: 01/01/20 10:59
[2020-01-01 09:23] LABS: HEMATOCRIT 31.2 % (37.0-47.0)
--- NOTE | 2020-01-01 09:55 | DI ---
EXAM: Chest one view HISTORY: Fall COMPARISON: 08/19/2019 TECHNIQUE: Single view of the chest was performed FINDINGS: Stable heart size and mediastinal contour. Previous CABG changes. The lungs are clear. No pleural effusion or pneumothorax. No acute abnormalities of the bones. IMPRESSION: No acute cardiopulmonary process.
--- NOTE | 2020-01-01 09:56 | DI ---
EXAM: Two views of the bilateral hips with pelvis HISTORY: Fall COMPARISON: 08/28/2019 FINDINGS: No fracture. Normal alignment. No aggressive osseous lesion. Hip joint spaces are preserve d. No focal soft tissue abnormality. IMPRESSION: No acute findings or significant degenerative change.
[2020-01-01] MEDS ORDERED: URO-JET MUCOUSMEMB STA (10:15)
[2020-01-01] MEDS ORDERED: SODIUM CHLORIDE 1,000 ML IV STA (10:15)
[2020-01-01] MEDS ORDERED: TYLENOL PO PRN (10:28)
[2020-01-01] MEDS ORDERED: NORVASC PO SCH (10:30)
[2020-01-01 11:42] VITALS: BMI 49.1
--- NOTE | 2020-01-01 12:31 | PCM ---
Chief Complaint Chief Complaint: Fall, Kidney failure, Chronic Opiate use, Confusion. History of Present Illness History of Present Illness: Ms. Nai Ball is a 59 yr old CF who presented to ED 01/01/20 at 09:02 after a fall. She noted mild to moderate generalized weakness for 24 hours, slipped out of her chair. She denied any known injury from fall, no LOC, no fever, no pain anywhere at present, no N/V/D, no emesis, no DM. 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 Relatively new patient to me, having met once in past 14 days, she has been referred to neurology and to pain management 13 days ago. Patient normally ambulates with/without walker as aid. She arrived via stretcher and was evaluated by Dr. Saha. Vitals showed temp 96.9, pulse 84, rr 16, BP 162/94. Meds reviewed and taking levothyroxine 50mcg daily, plavix 75 daily, norvasc 5mg daily, trazodone 50mg qhs, lyrica 75mg q8 hours, klonopin 0.5mg TID, ASA 325 daily, duonebs PRN, entresto 49-51, aldactone 25 daily, torsemide 20mg daily, norco 10-325 q 8hours. No E/o infection, did not meet SIRS criteria. NO recent URI, no recent GI symptoms. Reported weakness, denied fever, vision changes, changes to HEENT system to include rhinorrhea, sore throat, epistaxis, No SOA, no PND, no Orthopnea, no cough. No Abd pain. No Dysuria, no changes in bowel/bladder function. No constipation. MSK joint pain, muscle stiffness. Neuro listed as denied cognitive dysfunction or LEE. However she has ?Ataxia and functional/cognitive decline with time. To ED provider noted pain in bilateral hip s/p fall. Aching, non radiating, severity mild to moderate 5/10. No swelling, redness, localized weakness, fever, dizziness. Family history of CAD (father IA), Colon cancer (several relatives) and ataxia (Again ?Friederich). I suspect possible morales syndrome or other hereditary cancer process. She needs close f/u with GI as outpatient. Exam in ED without abnl. Labs WBC 6.75, hgb 9.6, plt 226. CMP showed sodium 139.7, K+ 3.64, BUN 22.9, CR 2.03. ALk phos 113, ast 110.2, ALT 25.3. NT FL BNP 674. Glucose was 121.9. A1C 4.65 09/30/19. Ammonia <8.7. Reviewed previous creatinine and her baseline is about 1.11. Her previous anemia has been chronic and hgb run 8.2-11 with avg in mid 9 range. Her AST was markedly elevated, ALT was normal. Ratio >2:1. I have ordered serum alcohol and a urine tox. Troponin I was 0.014, CK MB was 82.4 with CK 5975.3 elevated. I would like to trend those over next 12 hours to monitor. NT PRo BNP 674 and okay. Imaging pelvis: IMPRESSION: No acute findings or significant degenerative change. CXR: No acute disease. I was contacted by Dr. Saha from ED and noted patient had Acute renal failure and concern for rhabdo. Vitals/meds reviewed. EKG LBBB known /chronic and not new as seen on EKG 08/10/19. Admitted to inpatient for acute renal failure, Rhabdomyolsis and renal insufficiency. Reviewed labs. Last UDS on 09/30/19 and 11/26/19 did not have opiates in the UDS. I reviewed my last OV, we have requested outlying records. Lft Heart Cath 06/05/17 LVEF 55% no significant valve disease. Severe stenosis of mid right coronary artery in-stent treated with balloon facilitated implant. Saphenous venous graft to right posterior lateral ventricular, right posterior descneding and obtuse marginal. Occluded mid LAD. On dual therapy 1 year. JULITA/Statin/BB. ASA life. Today she reported falling out of chair 8-12 hours ago. She and I have talked about opiates/benzos in concern and she has denied ETOH. Per DR. Saha, they have placed a garcia, they gave her 1000 ml of NS. I want to be somewhat cautious of over fluid hydrating but her BP of 162/94 and her kidney function may be from rhabdo/dehydration. She was admitted to room 116 and I saw her at [16:24]. She reports no ETOH use. She does not use tobacco. She does not use any illicit substances. She fell yesterday, was down about 12 hours and could not get back up. She does not have any bruising. She slid off the chair and could not get up. She tried to get to help her back up. She said he yelled at her and told her she could do it, "get up, you can do it, come on now get up." He would not help her up. She is fed up with , she wants him out. She has kicked him out, she noted he called a little bit ago. She said he was not kind to her. She noted pain management called her yesterday. She denies taking meds more than she should. She reported increased falls and "needs medicine." BMI 49.2. No new skin rash. No pain in legs/calves. Known CKD stage 3. She took meds yesterday, did not miss any of them per her report. took meds this am, then noted only her heart meds. In room, patient was drinking 1 coke, 1 Mellow yellow. I noted that she had 4 in the room. She said she was a [id number] and could not stop drinking them. She then noted she has been laying in bed x 4 days, sleeping sad and down. NO SI/HI. Poor habitus, poor health, ?ataxia. She was preoccupied with getting her medications than with discussing her current symptoms. I saw her in room for total of 45 minutes >70 minutes total spent on admission today not including documentation. Discussed with pharmacy, discussed home meds, changed nebs to inhalers due to COVID-19 restrictions. Current Body Weight: 269 lb Riva body: 110 lb Adjusted body weight: 174 lb. Recommended Fluid Rate: 119 ml/hour, 179ml/hour 1.5x maintenance. CRCL 51 Baseline Cr: 1.11. Physical Examination: Constitutional: Appearance-No acute distress, Consistent with stated age. Somewhat somnolent. Orientation- Oriented x 3, alert Habitus: Morbidly obese. General- Patient is somewhat somnolent, grumpy. However, she is cooperative with the interview and exam. Integumentary: General-No rashes, ulcers or lesions. Palpation- Normal skin moisture/turgor. Skin is warm to touch, appropriate. Capillary refill is normal bilateral Upper and lower extremity. Head/Neck: Head- normocephalic and atraumatic. Neck- without visible/palpable lumps or pulsations. Palpation- No bony tenderness about head/neck along frontal, occipital, temporal, parietal, mastoid, jawline, zygoma, orbit or any other location. NO temporal artery tenderness. No TMJ tenderness. Neck Supple. Thyroid-No thyromegaly, no nodules Eye: Bilaterally PERRLA, EOMI. No discharge. Upper and lower eyelids are normal. Sclera/conjunctiva normal without discharge. Cornea is normal and clear. Lens is normal. Eyeball appears normal. No ciliary flushing, no conjunctival injection. ENMT: Pinna- normal without tenderness or erythema. External auditory canal Left- normal without erythema or discharge, no excessive cerumen. External auditory canal Right-normal without erythema or discharge, no excessive cerumen. TM left- Jernigan/pearly, normal light reflex and anatomy TM Right- Jernigan/pearly, normal light reflex and anatomy Hearing Assessment-normal to conversational speech. Nose and sinus- No sinus tenderness along frontal/maxillary region. External appearance normal and midline. Nares- bilateral quiet airflow, no discharge. Nasal mucosa- No bleeding noted and no ulcerations observed. Roberta, moist. Turbinates non boggy. Lips- normal color, moist without cracks/lesions Oral Cavity/Palate- hard/soft palate intact without lesions, oral mucosa pink and moist. Tongue normal midline. Oropharynx- no pharyngeal erythema, Uvula midline. No post nasal drip. No exudate. Salivary glands- Non tender to palpation CHEST/LUNG: Inspection- symmetric chest wall no pectus deformity. Normal effort, no distress, no use of accessory muscles. Decreased effort but clear. Palpation- nontender sternum, ribline. No abnormal pulsations. Auscultation- Breath sounds normal throughout all lung corea. Normal tracheal sounds, Normal bronchial sounds overlying sternum, Bronchovessicular sounds normal between scapulae posteriorly, Normal vessicular breath sounds heard throughout periphery. Lungs are clear today. Adventitious sounds- No wheezes, rales, rhonchi. CARDIOVASCULAR: Carotid artery- normal, no bruits or abnormal pulsations. Jugular vein- no pulsations. Palpation/Percussion- Displaced PMI, mid sternnal scar from prior procedures. no palpable thrill Auscultation- Regular rate and rhythm. Murmur noted all areas of heart. Radiated into axilla and carotid II- III/ in recumbent position. Extremities- no digital clubbing, cyanosis, edema, increased warmth. ABDOMEN: Inspection- Prominent central adiposity. Auscultation- Bowel sounds normal, no abdominal bruits. Palpation/Percussion- soft, non-tender, no rebound tenderness, no rigidity (guarding), no jar tenderness, no masses. Liver/spleen -no appreciable hepatosplenomegaly, exam limited by habitus. : Garcia cath in place. Peripheral Vascular: Upper extremity Left- Normal temperature with pink nailbeds and no ulcerations. Upper extremity Right- Normal temperature with pink nailbeds and no ulcerations. Lower extremity- Normal temperature with pink nailbeds and no ulcerations. DP pulses 2+ bilaterally. Pedal hair intact. Normal capillary refill. Edema- No edema. Musculoskeletal: Generalized-No generalized swelling or edema of extremities, no digital clubbing or cyanosis, neurovascularly intact all four extremities, mild reduction in LE reflexes and strength R>L. Upper extremity- Symmetrical posture. Poor conditioning. Normal sensation along medial and lateral upper extremity proximally and distally. NO tenderness overlying shoulder, lateral/medial epicondyle, wrist hands. IV . Optical Instrument Repairer 5/5 and strength 5/5 bilateral UE. Elbow palpated, no tenderness overlying olecranon. Normal supination, pronation to active/passive ROM and to resisted rotation. Bicep insertion/tricep insertion appear normal without obvious pathology. Rotator cuff evaluated and intact. Normal wrist ROM bilaterally. Normal hand movement, intrinsic muscles of hands normal. No tenderness to palpation of hands/wrists/elbows. Lower extremity- Hip: Not tender to palpation with compression. She has decreased hip ROM bilaterally. She has reduced hip flexor strength, reduced ability to flex against gravity. Scar right knee from prior replacement. She reports no sensation RLE but with withdraw from pain. No erythema of surrounding tissue, no e/o infection. Reduced strength and tone bilateral LE. Tuning fork testing negative on right normal on left. NOrmal DP pulses on bilateral feet. Knee: Knee ROM reduced. She has 0 to ~90 degress of flexion. Tight Quad, IT, hamstring, hip flexors. No tenderness overlying trochanters, no tenderness about patella, quad tendon, patellar tendon. No tenderness at tibial tuberosity. Ankle: normal passive ROM she notes she cannot use the right. Babinski downgoing today. not tender to palpation along medial/lateral malleolus. . Spine/Ribs- No visible deformities, paraspinal tenderness C/T/L no known fractures, normal strength, Normal ROM. Normal stability No tenderness along C/T/L spinous processes. Neurological: General- Moves bilateral UE but reduced ability to move bilateral LE. Symmetrical face and body posture. Cranial nerves- individually evaluated II-XII and intact. PERRLA, Normal EOMI, visual/special senses appear intact, Face is symmetrical and normal sensation/movement, normal tongue, normal strength/posture of neck musculature. Reflexes- intact bilateral UE DTR 2+ for bicep, brachial, tricep but 1+ bilateral patellar, Achilles. Ankle clonus kirstin l with 2 beats. Strength- 5/5 bilateral UE and 4/5 bilaterally at hip flexors bilaterally, 3+/5 below knee on right. Soft touch- appears intact bilateral UE and ?reduced RLE. Temperature sensation- intact bilateral UE and reduced bilateral LE. Cerebellar testing-Rapid alternating movements intact. Heel byers reduced bilaterally. Neuropsych: Oriented- Person, place, time. (AAOx3), Mood/affect- Flat. Somewhat somnolent. Speech-Mildly slurred speech, ?Oversedated with medications. Quiet volume. Thought content- reduced. History/timeline are difficult to follow. Di fficulty with basic computations and spelling today. Associations- no SI/HI, no hallucinations, delusions, obsessions. Judgment/insight- Questionable. Memory- Reduced. Lymphatic: Head/Neck- normal size and non tender to palpation. Axillary- normal size and non tender to palpation. Femoral and Inguinal- normal size and non tender to palpation. Review of Systems Constitutional: Reports weakness, fatigue and loss of appetite; Denies fever, chills and sweats Eyes: Denies blurred vision, double-vision, discharge, itching, pain, redness and photophobia Ears: Denies pain, bleeding, drainage, ringing and hearing loss Nose: Denies bleeding, congestion and discharge Throat: Denies pain, swelling and voice change Mouth: Denies bleeding, pain and swelling Respiratory: Denies cough, shortness of air, wheeze, hemoptysis and pain with breathing Cardiovascular: Denies chest pain, left arm pain, diaphoresis, PND, orthopnea, edema, palpitations and syncope Gastrointestinal: Denies abdominal pain, nausea, vomiting, diarrhea, melena, hematemesis, hematochezia, constipation and other Genitourinary: Denies dysuria, hematuria, frequency, incontinence, flank pain, vaginal discharge, abnormal bleeding and pelvic pain Neurological: Reports headache, dizziness and problems with walking; Denies seizure, numbness, speech difficulty, tremor and fainting Musculoskeletal: Reports pain; Denies swelling in joints Skin: Denies rash, pruritus, lacerations, wounds and bruising Immunology: Denies hives, itching, frequent infections and difficulty healing Hematology: Denies easy bruising, easy bleeding and swollen glands Endocrine: Denies weight changes, cold intolerance, heat intolerance, excessive thirst, excessive hunger and polyuria Psychiatric: Reports depression, anxiety and hopelessness; Denies sleeplessness, suicidal and hallucinations Habits: Denies tobacco use, substance use and alcohol use Allergies Allergies Allergy/AdvReac Type Severity Reaction Status Date / Time Proton Pump Inhibitors Allergy Mild Nausea Verified 01/01/20 08:47 egg AdvReac Vomiting Verified 01/01/20 08:47 gabapentin AdvReac Verified 01/01/20 08:47 lactose AdvReac Vomiting Verified 01/01/20 08:47 morphine AdvReac "makes me Verified 01/01/20 08:47 crazy in the head" Penicillins AdvReac Nausea Verified 01/01/20 08:47 ALL CILLINS AdvReac Uncoded 12/19/19 08:59 steroids AdvReac Uncoded 12/19/19 08:59 PFSH Medical History Adult hypothyroidism Anxiety Ataxia CAD (coronary artery disease) Chronic back pain greater than 3 months duration Chronic kidney disease, stage 3 Chronic kidney disease, stage 3 (moderate) Colon cancer Congestive heart failure Difficulty in walking, not elsewhere classified Dyspnea, unspecified Early-onset cerebellar ataxia Heart failure, unspecified History of hysterectomy Hypercalcemia Hyperlipidemia Hypothyroidism Inflammatory liver disease, unspecified Major depressive disorder, recurrent, unspecified Muscle weakness (generalized) group home resident Old myocardial infarction Other reduced mobility Pneumonia, unspecified organism Pre-diabetes Pulmonary vascular congestion Surgical History colectomy History of heart surgery Status post appendectomy Status post cholecystectomy Stent placement Total knee replacement right knee Family History Mother Ataxia Heart disease Myocardial infarct FATHER Colon cancer Heart disease Myocardial infarct SISTER Heart disease Mentally challenged BROTHER Colon cancer, Onset Age: 43 Heart disease Myocardial infarct 19 CHILD Colon cancer, Onset Age: 30 Social History Smoking and tobacco status: Never smoker Passive smoking exposure: Yes () Who is smoking: other Alcohol intake: never Substance use type: does not use Deidre/latter day: OTHER Special deidre needs: No Adopted: No Household members: spouse Housing: other Marital status: M Lives independently: Yes Number of children: 3 Number of grandchildren: 11 Highest education level completed: 10th grade service: No group home: No Current occupational status: disabled Pets and animals: Yes (dog) Leisure activites: other History of recent travel: No Sexually active: No Do you think of yourself as: straight/heterosexual Current gender identity: female Seatbelt use: always Drives intoxicated or rides with intoxicated intermodal truck driver: No Current diet type/program: regular Caffeine: Yes ([facility]) Eating out: rarely or never Water heater temperature set < 120 degrees: Yes Working smoke detector in home: Yes Fire extinguisher in home: Yes Carbon monoxide detector in home: Yes Firearms in home: No What type of physical activity do you participate in?: none Physical activity functional status: assisted ambulation How many days of moderate to strenuous exercise, like a brisk walk, did you do in the last 7 days: 0 Medications Medications: Medications Generic Name Dose Route Start Last Admin Trade Name Freq PRN Reason Stop Dose Admin Acetaminophen 650 mg 01/01/20 10:28 Tylenol PO Q4H PRN Mild Pain Albuterol Sulfate 2 puff 01/01/20 14:00 Ventolin Hfa (Per Puff-With Spacer) IH RTQID ELENO Amlodipine Besylate 2.5 mg 01/02/20 09:00 Norvasc PO DAILY REPLACED BY [facility] Aspirin 325 mg 01/02/20 08:30 Aspirin Ec PO DAILYWM REPLACED BY [facility] Sodium Chloride 1,000 mls @ 75 mls/hr 01/01/20 10:30 Sodium Chloride IV .[id number] REPLACED BY [facility] Ipratropium [place] 2 puff 01/01/20 14:00 Atrovent Hfa Inhaler (Per Puff-With Spacer) RTQID REPLACED BY [facility] Body Composition Height: 5 ft 2 in Weight: 269 lb Body Mass Index (BMI): 49.1 Vital Signs Temperature: 97.7 F Pulse Rate: 72 Respiratory Rate: 16 Blood Pressure: 111/55 O2 Sat by Pulse Oximetry: 98 Lab/Tests/Diagnostic Imaging Lab/Tests/Diagnostic Imaging: Lab Review 01/01/20 01/01/20 01/01/20 08:55 08:55 08:55 WBC 6.75 RBC 3.67 L Hgb 9.6 L Hct 31.2 L MCV 85.0 MCH 26.2 L MCHC 30.8 L RDW Coeff of Kylee 14.9 H Plt Count 226 Immature Gran % (Auto) 0.6 Neut % (Auto) 63.8 Lymph % (Auto) 25.9 [place] % (Auto) 8.3 Eos % (Auto) 1.0 Baso % (Auto) 0.4 Neut # (Auto) 4.3 Lymph # (Auto) 1.8 [place] # (Auto) 0.6 Eos # (Auto) 0.1 Baso # (Auto) 0.0 Immature Gran # (Auto) 0.0 Sodium 139.7 Potassium 3.64 Chloride 103.6 Carbon Dioxide 29.3 Anion Gap 10.44 BUN 22.9 H Creatinine 2.03 H Estimated GFR (MDRD) 25.00 BUN/Creatinine Ratio 11.28 Glucose 121.9 H Calcium 9.65 Total Bilirubin 0.35 AST 110.2 H ALT 25.3 Alkaline Phosphatase 113.1 Ammonia Total Creatine Kinase 5975.3 H CK-MB (CK-2) 82.400 H* CK-MB (CK-2) % 1.3700 Troponin I 0.014 NT-Pro-B Natriuret Pep 674.000 H Total Protein 8.31 H Albumin 4.16 Globulin 4.15 Albumin/Globulin Ratio 1.00 Urine Color Urine Clarity Urine pH Ur Specific [place] Urine Protein Urine Glucose (UA) Urine Ketones Urine Blood Urine Nitrite Urine Bilirubin Urine Urobilinogen Ur Leukocyte Esterase Urine Microscopic RBC Urine Microscopic WBC Ur Squamous Epith Cells Hyaline Casts Urine Mucus 01/01/20 01/01/20 09:50 10:40 WBC RBC Hgb Hct MCV MCH MCHC RDW Coeff of Kylee Plt Count Immature Gran % (Auto) Neut % (Auto) Lymph % (Auto) [place] % (Auto) Eos % (Auto) Baso % (Auto) Neut # (Auto) Lymph # (Auto) [place] # (Auto) Eos # (Auto) Baso # (Auto) Immature Gran # (Auto) Sodium Potassium Chloride Carbon Dioxide Anion Gap BUN Creatinine Estimated GFR (MDRD) BUN/Creatinine Ratio Glucose Calcium Total Bilirubin AST ALT Alkaline Phosphatase Ammonia < 8.7 L Total Creatine Kinase CK-MB (CK-2) CK-MB (CK-2) % Troponin I NT-Pro-B Natriuret Pep Total Protein Albumin Globulin Albumin/Globulin Ratio Urine Color Yellow Urine Clarity Clear Urine pH 5.5 Ur Specific [place] 1.020 Urine Protein 1+ H Urine Glucose (UA) Negative Urine Ketones Negative Urine Blood 2+ H Urine Nitrite Negative Urine Bilirubin Negative Urine Urobilinogen 0.2 Ur Leukocyte Esterase Negative Urine Microscopic RBC 5-10 Urine Microscopic WBC 0-2 Ur Squamous Epith Cells 2-5 Hyaline Casts 0-2 Urine Mucus 1+ Orders Category Date Time Status ADMIT OBSERVATION [PLACE PATIENT OBSERVATION] .TO ADMISSION 01/01/20 10:44 Active MEDSURG (MONITORED BED) EKG-(ED ONLY) Stat CARDIO 01/01/20 08:58 Completed EKG-(IP & OP ONLY) DAILY CARDIO 01/02/20 06:00 Ordered EKG-(IP & OP ONLY) DAILY CARDIO 01/03/20 06:00 Ordered ACTIVITY .Complete BR CARE 01/01/20 10:28 Active INTAKE & OUTPUT Q8HR CARE 01/01/20 10:28 Active Notify RT of Treatment ONCE CARE 01/01/20 10:29 Active TELEMETRY MONITORING TELE CARE 01/01/20 10:28 Active TELEMETRY MONITORING TELE CARE 01/01/20 10:45 Completed VITAL SIGNS Q8HR CARE 01/01/20 10:28 Completed CARDIAC DIET DIETARY 01/01/20 Lunch Ordered CONSULT STEAM BRUSH OPERATOR ONCE STEAM BRUSH OPERATOR 01/01/20 11:42 Active ED CATHETER INSERTION AND CARE .ONCE EMERGENCY 01/01/20 10:15 Active AMMONIA Stat LAB 01/01/20 09:50 Completed CBC W/ AUTO DIFF DAILY@0600 LAB 01/02/20 06:00 Ordered CBC W/ AUTO DIFF DAILY@0600 LAB 01/03/20 06:00 Ordered CBC W/ AUTO DIFF Stat LAB 01/01/20 08:55 Completed COMPREHENSIVE METABOLIC PANEL DAILY@0600 LAB 01/02/20 06:00 Ordered COMPREHENSIVE METABOLIC PANEL DAILY@0600 LAB 01/03/20 06:00 Ordered COMPREHENSIVE METABOLIC PANEL Stat LAB 01/01/20 08:55 Completed CREATINE KINASE Q8H LAB 01/01/20 16:30 Ordered CREATINE KINASE Q8H LAB 01/02/20 00:30 Ordered CREATINE KINASE Stat LAB 01/01/20 08:55 Completed NT-PROBNP Stat LAB 01/01/20 08:55 Completed TROPONIN I Q8H LAB 01/01/20 16:30 Ordered TROPONIN I Q8H LAB 01/02/20 00:30 Ordered TROPONIN I Stat LAB 01/01/20 08:55 Completed URINALYSIS C & S IF INDICATED Stat LAB 01/01/20 10:40 Completed Acetaminophen [Tylenol] MEDS 01/01/20 10:28 Active 650 mg PO Q4H PRN Albuterol Inhaler(with Spacer) [Ventolin Hfa (Per Puff- MEDS 01/01/20 14:00 Active with Spacer)] 2 puff IH RTQID Amlodipine Besylate [Norvasc] MEDS 01/01/20 10:30 Discontinued 2.5 mg PO DAILY Amlodipine Besylate [Norvasc] MEDS 01/02/20 09:00 Active 2.5 mg PO DAILY Aspirin [Aspirin EC] MEDS 01/02/20 08:30 Active 325 mg PO DAILYWM Ipratropium Inhaler(Spacer) [Atrovent Hfa Inhaler (Per MEDS 01/01/20 14:00 Active Puff-with Spacer)] 2 puff IH RTQID Lidocaine (Uro-Jet) [Uro-Jet] MEDS 01/01/20 10:15 Discontinued 10 ml [id number] ONCE STA Sodium Chloride 0.9% [Sodium Chloride] 1,000 ml MEDS 01/01/20 10:30 Active IV 75 mls/hr Sodium Chloride 0.9% [Sodium Chloride] 1,000 ml MEDS 01/01/20 10:15 Discontinued IV BOLUS RESUSCITATION STATUS Routine OTHERS 01/01/20 10:28 Ordered CHEST, 1V AP ONLY Stat RADS 01/01/20 08:58 Completed PELVIS & CINDY HIPS Stat RADS 01/01/20 08:58 Completed OT CONSULTATION Routine THERAPIES 01/01/20 Ordered Medications Generic Name Dose Route Start Last Admin Trade Name Freq PRN Reason Stop Dose Admin Acetaminophen 650 mg 01/01/20 10:28 Tylenol PO Q4H PRN Mild Pain Albuterol Sulfate 2 puff 01/01/20 14:00 Ventolin Hfa (Per Puff-With Spacer) RTQID REPLACED BY [facility] Amlodipine Besylate 2.5 mg 01/02/20 09:00 Norvasc PO DAILY ELENO Aspirin 325 mg 01/02/20 08:30 Aspirin Ec PO DAILYWM ELENO Sodium Chloride 1,000 mls @ 75 mls/hr 01/01/20 10:30 Sodium Chloride IV .[id number] ELENO Ipratropium [place] 2 puff 01/01/20 14:00 Atrovent Hfa Inhaler (Per Puff-With Spacer) RTQID REPLACED BY [facility] Discontinued Medications Generic Name Dose Route Start Last Admin Trade Name Freq PRN Reason Stop Dose Admin Amlodipine Besylate 2.5 mg 01/01/20 10:30 Norvasc PO DAILY ELENO Sodium Chloride 1,000 mls @ 1,000 mls/hr 01/01/20 10:15 01/01/20 10:33 Sodium Chloride IV 01/01/20 11:14 1,000 mls/hr BOLUS STA Administration Lidocaine HCl 10 ml 01/01/20 10:15 Uro-Jet [id number] 01/01/20 10:16 ONCE STA Assessment (1) KHLOE (acute kidney injury): Status: Acute Code(s): N17.9 - Acute kidney failure, unspecified SNOMED Code(s): 43927437 (2) Rhabdomyolysis: Status: Acute Code(s): M62.82 - Rhabdomyolysis SNOMED Code(s): 143638095 Qualifiers: Encounter type: initial encounter Rhabdomyolysis type: traumatic Qualified Code(s): T79.6XXA - Traumatic ischemia of muscle, initial encounter (3) BMI 45.0-49.9, adult: Status: Acute Code(s): Z68.42 - Body mass index (BMI) 45.0-49.9, adult SNOMED Code(s): 799334636 (4) Abnormal drug screen: Status: Acute Code(s): R89.2 - Abnormal level of other drugs, medicaments and biological substances in specimens from other organs, systems and tissues SNOMED Code(s): 274974395 (5) Bradycardia: Status: Acute Code(s): R00.1 - Bradycardia, unspecified SNOMED Code(s): 11965417 (6) Hypertension: Status: Acute Code(s): I10 - Essential (primary) hypertension SNOMED Code(s): 95302384 (7) Chronic prescription opiate use: Status: Acute Code(s): Z79.891 - halfway (current) use of opiate analgesic SNOMED Code(s): 915442392 (8) Pre-diabetes: Status: Acute Code(s): R73.03 - Prediabetes SNOMED Code(s): 503057117 (9) Ataxia: Status: Acute Code(s): R27.0 - Ataxia, unspecified SNOMED Code(s): 83419216 (10) Normocytic anemia: Status: Acute Code(s): D64.9 - Anemia, unspecified SNOMED Code(s): 929612987 Plan Plan: KHLOE w/ Rhabdomyelosis: Somewhat somnolent, reported would not help her up. Down several hours to closer to 8-12. Labs/imaging reviewed. Case discussed with ED. She noted she was lying around for last 4-5 days. has not been kind. She is not controlling diet, not controlling weight, she consumed at least a small can of coke and half a can of mellow yellow on floor and had several more in room with her. Discussed need for weight loss, discussed need for dietary efforts and reduction in caffeine due to acute kidney damage. Decreased PO intake, ?duration of fall. Elevation of CR, elevation of CK/CKMB she has anemia of chronic disease. I believe 24-48 hours hydration will help with this process. We will start with her ideal/adjusted bodyweight and hydrate at 100ml/hour. Will check TI and CK/CKMB q 8 hours for total of 3. F/U with patient again in the am. Am labs CBC/CMP, trend the cardiac markers as above. Telemetry, Strict I+O. ED placed a garcia. Will re-evaluate patient in am. Uncertain if CK changes are solely acute or acute on chronic. 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 Chronic opiate/benzo use. I am concerned now for possible overuse related to this fall. Neuro has been consulted as OP, pain management has been consulted as OP. I would like to get specialist input. - Admit to room 116 [Observation ] - Fluids increased from 75ml/hour NS to 100ml/hour. - Telemetry - Garcia Cath in place: Strict I+O - CBC/CMP in am. - Admission CrCl 51 - Increase water, reduce - Resume home meds. - Change nebs Ataxia: She notes she takes Opiates and Benzos for this problem. She is taking Klonopin 0.5mg q8 hours, norco 10/325 q 8 hours. 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 As discussed historically that I did not doubt ataxia dx, but friedreich ataxia seems to have symptoms/progression that the patient has not had. 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 Reviewed with her today that patients w/ atypical phenotype often have later onset, no cardiomyopathy and no reflexes. Similar to last OV with me as OP, she has retained reflexes bilateral LE although reduced. She has no abnormal eye movements. Decreased activity, decreased effort. She is lying in bed today, I have not observed her ambulating. We discussed MRI, consider as OP. Discussed with her fall CT head without contrast is reasonable, CT Cspine reasonable as well. No history of scoliosis. Has declined phys therapy recently in office. - CSpine CT - CT Head w/o - MRI brain w/o as outpatient. Chronic Anemia: Normocytic. Suspect Anemia chronic disease. Normal RDW, normal MCV. Monitor. CHF: Chronic/stable at present. Would like to get another echo as OP. Last 3 that I could find in system appeared normal. BMI 49.2: Federal guidelines suggest a healthy goal BMI of 18.5-24.9 for people 18-65 and 23-30 for people age 65 and older. Overweight is considered BMI 25- 30, Obesity 30-40 and Morbid obesity is defined as >100 lb overweight or BMI >40. With a BMI above goal, it is recommended to utilize a diet/exercise program to get back into the appropriate range. 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 For BMI >40 consider referral to bariatrics. She may not be a good candidate. Discussed to f/u as outpatient. HTN: Chronic Essential HTN w/ goal <140/90. Reviewed home meds. Will resume home meds while inpatient. Continue to monitor as outpatient. Mildly elevated BP, on telemetry. Not using nicotine, no ETOH, no illicits. Morbidly obese, weight is a major factor, diet is a major factor. Regarding kidney health, hold Mellow yellow while in hospital, limit caffeine. - Continue home meds. - Torsemide dose at 20, not 40mg. Diet: Regular Activity: Up with assist. DVT Prophy: Lovenox 40mg subcutaneous daily. Disposition: Expect 24-48 hours of admission with focus on fluid hydration and improvement in renal parameters. Chronic anemia. I expect her hgb to drop with fluid hydration. I asked her to be OOB as much as possible, up with assist due to fall. Will address evening and am labs as well as new imaging. Patient history is long and difficult to follow. Acute issues today renal function and elevated CK w/ suspicion of rhabdomyolysis.. Unknown duration of being down. F/U with patient again in am. >70 minutes today spent on admission, evaluation of ED documentation, labs/imaging, discussion with nurse/patient and 1:1 discussion with ED doctor.
[2020-01-01] MEDS: SODIUM CHLORIDE 1,000 ML IV SCH (12:50)
[2020-01-01] MEDS: ATROVENT HFA INHALER (PER PUFF-WITH SPACER) IH SCH ×2 (14:05→20:30)
[2020-01-01] MEDS: VENTOLIN HFA (PER PUFF-WITH SPACER) IH SCH ×2 (14:05→20:30)
[2020-01-01] MEDS ORDERED: LOVENOX SUBCUT SCH (16:00)
[2020-01-01] MEDS: KLONOPIN PO PRN (16:41)
[2020-01-01] MEDS: NORCO 10-325 PO PRN (16:41)
--- NOTE | 2020-01-01 19:55 | CT ---
EXAM: CT of the head without contrast. HISTORY: Fall. Ataxia. COMPARISON: 08/15/2019 TECHNIQUE: Contiguous axial images at 5 mm intervals were obtained from the base of the skull to the vertex of the calvarium. No contrast was given. FINDINGS: Extra-axial spaces: The CSF contiaing spaces are diffusely enlarged consistent with atrophy.There ar e no extraaxial fluid collections. Hemorrhage: None Cerebral Parenchyma: There are hypodensities in the periventricular white matter and deep white matte r. These findings are non-specific but can be seen with chronic ischemic changes from small vessel d isease.Ortega-white differentiation is normal. Cerebellum: Mild atrophic changes.. Masses/Mass effect: None. There is no midline shift. Vasculature: Calcifications are seen in the carotid and vertebral arteries. Osseus Structures: Normal. Soft tissues: Normal. IMPRESSION: 1. Chronic age related changes. 2. No acute intracranial hemorrhage.
--- NOTE | 2020-01-01 20:01 | CT ---
EXAM: CT scan cervical spine HISTORY: Fall COMPARISON: None. FINDINGS: Contiguous axial images obtained through the cervical spine utilizing 2-mm collimation. S agittal and coronal reconstructions were imaged and reviewed.. There is loss normal cervical lordosi s suggesting paraspinal muscle spasm. The vertebral bodies are normal in height and alignment. The facet joints are intact. 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 There is mult ilevel central canal and foraminal stenosis. IMPRESSION: Loss normal cervical lordosis suggesting paraspinal muscle spasm. No acute findings
[2020-01-01] MEDS: LYRICA PO SCH (20:06)
[2020-01-01] MEDS: ENTRESTO 24 MG-26 MG TABLET PO SCH (20:06)
[2020-01-01] MEDS ORDERED: DESYREL PO PRN (21:00)
[2020-01-01] MEDS ORDERED: SACUBITRIL VALSARTAN PO SCH (21:00)
[2020-01-02] MEDS: SODIUM CHLORIDE 1,000 ML IV SCH ×3 (00:28→13:00)
[2020-01-02] MEDS: NORCO 10-325 PO PRN ×2 (01:28→10:05)
[2020-01-02] MEDS: ATROVENT HFA INHALER (PER PUFF-WITH SPACER) IH SCH ×3 (04:20→13:52)
[2020-01-02] MEDS: VENTOLIN HFA (PER PUFF-WITH SPACER) IH SCH ×3 (04:20→13:52)
[2020-01-02 05:20] LABS: HEMATOCRIT 27.2 % (37.0-47.0)
[2020-01-02] MEDS: LYRICA PO SCH ×2 (05:47→12:59)
[2020-01-02] MEDS: KLONOPIN PO PRN (05:56)
[2020-01-02] MEDS ORDERED: SYNTHROID PO SCH (06:30)
[2020-01-02] MEDS ORDERED: DEMADEX PO SCH (06:30)
--- NOTE | 2020-01-02 07:22 | PCM.PROG ---
Date Seen by Provider: 01/02/20 Time Seen by Provider: 07:15 Subjective: 59 yr old CF HD #2 s/p KHLOE/Rhabdomyelosis s/p fall and prolonged period of being down. 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 No neuro at present (pending outpatient referral). Chronic opiate/Benzo use due to f/u with pain management as well (referral placed 2 weeks ago). Patient was admitted yesterday pm by me to observational status for fluid hydration, renal failure and elevated ck/ckmb. Vitals overnight and unto this am included afebrile temperatures ranging 98.6-98.7, HR 64-82. BP 102-162/51-70. O2 98- 100. Telemetry showed widened QRS 0.12-016 BBB and NSR with some sinus arrhythmia changes. She has had a long history of BBB at least back to the end of 2018 based on chart review. She had labs drawn at 1800 yesterday and showed CK increased from 5975.3 in ED to 7858.6 and CKMB up from 82.4 to 102. These were repeated early this am ~300 and were found to be trending downward at 6377.4 and 61.5 respectively. BMP last pm Showed normal sodium 137.8, normal K+ 3.67, BUN 21.6 and CR had dropped to 1.31 with GFR 41. Glucose 116.4. This am CBC showed WBC dropped from 6.75 to 6.82, Hgb dropped from 9.6 to 8.4 (which is within her normal range), platelet dropped from 226 to 180. CMP this am showed normal sodium 137.2, normal K+ 3.59. BuN further improved from 21.6 to 17.8, creatinine improved beyond baselne to 1.03. Glucose 97.4 and her GFR looked markedly better at 97.8. AST this am was 145.2 up from 110.2 yesterday. Serum ETOH was negative. Calcium this am was 8.33 but her alb was 3.35 and this corrected to normal at 8.8 based on low albumin. Troponin I trended the same and negative. Looking back through her chart, she has a persistent ck/CKmb back to at least 2015. As an example, her CK was 1491.6 08/15/18 and was 3089.5 on 08/14/18. Her CKMB was 35.9 08/14/18. I perused the nursing narratives and telemetry reports. It appears her biggest c/o is pain/need for norco/klonopin regularly (sooner than needed). UDS done yesterday showed +opi, +TCA, +Benzo. No other substances. Starting at 1815 patient reported pain, called to nursing and norco given w/ reduction in back/leg/generalized pain. 181 Klonopin requested due to anxiety and "leg pain" and she relaxed/had improved symptoms overall. 00:00 nursing noted watching TV, requested cup of ice, NS running at 100/hr and she had no c/o. Point of note patient has history of CHF. I chose to run fluids at closer to her ideal body weight and she had improved creatinine pretty quickly. We discussed at length yesterday pm not drinking the 4-5 mellow yellow cans she had in room due to caffeine and further renal stress/dehydration . At 01:10 She called to nursing noting SOA. O2 98%, HR 65, tele unchanged, nursing discussed breathing with patient, discussed positioning with patient, she received a phone call talked with friend and had no further c/o. 01:30 noted pain. and norco given for back/leg pain. Rested until 3:00. Asymptomatic/lisa/PVC on tele, no c/o pain/anxiety at that time. 03:48 labs called for CK/CKMB to nursing. 0400 patient c/o SOA again, then said she had chest pain. EKG completed LBB chronic/sinus arrhythmia, no acute ST/T changes. Patient mumbled to nurses. 98% on RA, on lovenox, was given inhalers. 0455 noted some left arm pain, nursing changed position, head of bed and patient was more comfortable. She noted Dr. Jacobs was her trash collector and she wanted to see him. No acute process, no acute changes in EKG, troponin negative x 3, CK/CKMB trending down, creatinine improving. EKG this am no acute changes, telemetry no acute changes, chronic anemia. At 0600 she c/o no cp/arm pain but wanted her klonopin for leg/arm pain. IV clear running 100/hour. NO changes in breathing, no e/o fluid overload. Reviewed urine and she had 650ml out yesterday ~0.51ml/kg when measured per shift and this am 350ml out documented in last 4 hours 0.47ml/kg/hour. Patient resting in bed again this am. I talked with her about her fall yesterday. She noted she was getting ready in the am and fell because it takes her so long to get ready. I asked when she fell and she said before 8. I noted yesterday she reported having been down for several more hours than that. She looked somewhat shocked and changed story to say that maybe it was longer than that. I discussed the above, discussed her symptoms and that cardiology will not be consulted while in hospital as there is nothing acute for them to address. She said she wanted Dr. Jacobs to be her doctor, I discussed at discharge we could help with that, then she said nevermind they were not taking new patients at present so she will continue seeing me. I responded that is fine as well. She has been referred to neuro and pain management, I will refer to physical therapy. She reports right leg is . She has good pulses and she withdraws to pain. She has walker in room. Has not been out of bed much but did note that she was out for a little while yesterday. She now has no soft drinks in room. D/w patient will repeat labs around 11-12 for CK/CKMB and if continued improvement plan on D/C home with f/u with me next week. Her biggest issues are chronic heart disease that a cardiology will be needed as outpatient. Additi onaly Ataxia needs neuro involvement. Back pain/leg pain pain management involvement. Chronic opiate/benzo use concerning for addictive properties. REVIEW OF SYMPTOMS: (Positives bolded) General: weight loss, fever, chills, night sweats, fatigue, appetite loss HEENT: blurry vision, eye pain, eye discharge, dry eyes, decreased vision, sore throat tinnitus, bloody nose, hearin gloss, sinus pain/pressure, ear pain/pressure. Respiratory: shortness of breath, cough, hemoptysis, wheezing, pleurisy, Cardiovascular: chest pain (acute on chronic), PND, palpitation, edema, orthopnea, syncope, swelling of extremities Gastro: Nausea, vomiting, diarrhea, hematemesis, abdominal pain, constipation Genito: hematuria, dysuria, glycosuria, hesitancy, frequency, incontinence [place]: Arthralgia, myalgia, muscle weakness, joint swelling, NSAID use Skin: rash, pruritis, sores, nail changes, skin thickening, change in wart/mole, itching, rash, new lesions, pruritus, nail changes Neuro: Migraine, numbness, ataxia, tremor, vertigo, weakness, memory loss, Irritability, dizziness Endocrine: excessive thirst, polyuria, cold intolerance, heat intolerance, goiter Psychiatric: depression, anxiety, anti-depressants, alcohol abuse, drug abuse, insomnia, change in sleep pattern and mood changes Heme/lymph: easy bruising, bleeding gums, blood clots, swollen glands, lymphedema, Allergic/immune: allergic rhinitis, hay fever, asthma, hives Objective: Vital Signs - 24 hr 01/01/20 08:36 01/01/20 10:47 01/01/20 11:10 Temperature 96.9 F L 97.7 F Pulse Rate 84 65 72 Respiratory Rate 16 16 16 Blood Pressure 162/94 H 111/55 L O2 Sat by Pulse Oximetry 97 98 01/01/20 12:31 01/01/20 13:44 01/01/20 17:31 Temperature 97.7 F 97.6 F 98.1 F Pulse Rate 72 66 70 Respiratory Rate 16 18 16 Blood Pressure 111/55 L 102/56 L 145/68 H O2 Sat by Pulse Oximetry 98 97 98 01/01/20 21:52 01/02/20 02:00 01/02/20 05:42 Temperature 98.6 F 98.6 F 98.7 F Pulse Rate 82 64 70 Respiratory Rate 20 16 16 Blood Pressure 148/70 H 130/65 108/51 L O2 Sat by Pulse Oximetry 100 98 98 Physical Examination: Constitutional: Appearance-unchanged from previous evaluation. Still w/o acute distress, Consistent with stated age. Less somnolent. Orientation- Oriented x 3, alert Habitus: Morbidly obese. General- Patient is still grumpy. Integumentary: General-No rashes, ulcers or lesions noted. Left AC IV in place, c/d/i. ENMT: Nares- bilateral quiet airflow, no discharge. Nasal mucosa- No bleeding noted and no ulcerations observed. [place], moist. Turbinates non boggy. Lips- normal color, moist without cracks/lesions Oral Cavity/Palate- hard/soft palate intact without lesions, oral mucosa pink and moist. Tongue normal midline. Oropharynx- no pharyngeal erythema, Uvula midline. No post nasal drip. No exudate. CHEST/LUNG: Normal to mildly decreased effort, normal full sentences. NO rales, no audible wheezes. NO Cough during our 30 minute conversation this am. She is in no distress, no use of accessory muscles. Overall Decreased effort but clear. CARDIOVASCULAR: Displaced PMI, mid sternal scar c/d/i. Auscultation- Regular rate and rhythm. Murmur noted all areas of heart. Radiated into axilla and carotid II-III/ in recumbent position. ABDOMEN: Inspection- Prominent central adiposity. Auscultation- Bowel sounds normal, no abdominal bruits. Palpation/Percussion- soft, non-tender, no rebound tenderness, no rigidity (guarding), no jar tenderness, no masses. Liver/spleen -no appreciable hepatosplenomegaly, exam limited by habitus. : Tarango cath in place. No e/o infection. Peripheral Vascular: Upper extremity Left- Normal temperature with pink nailbeds and no ulcerations. Upper extremity Right- Normal temperature with pink nailbeds and no ulcerations. Lower extremity- Normal temperature with pink nailbeds and no ulcerations. DP pulses 2+ bilaterally. Pedal hair intact. Normal capillary refill. No calf tenderness today, reports right leg . Teetee negative. Musculoskeletal: Upper extremity- Again w/ Symmetrical posture. Decreased effort/Poor conditioning. Normal sensation along medial and lateral upper extremity proximally and distally. NO tenderness overlying shoulder, lateral/medial epicondyle, wrist hands. IV . [employer] 5/5 and strength 5/5 bilateral UE. Elbow palpated, no tenderness overlying olecranon. Normal supination, pronation to active/passive ROM and to resisted rotation. Bicep insertion/tricep insertion appear normal without obvious pathology. Rotator cuff evaluated and intact. Normal wrist ROM bilaterally. Normal hand movement, intrinsic muscles of hands normal. No tenderness to palpation of hands/wrists/elbows. Lower extremity- Hip: Not tender to palpation with compression. She has decreased hip ROM bilaterally. She has reduced hip flexor strength, reduced ability to flex against gravity. Scar right knee from prior replacement. She reports no sensation RLE but with withdraw from pain. No erythema of surrounding tissue, no e/o infection. Reduced strength and tone bilateral LE. Tuning fork testing negative on right normal on left. NOrmal DP pulses on bilateral feet. Knee: Knee ROM reduced. She has 0 to ~90 degress of flexion. Tight Quad, IT, hamstring, hip flexors. No tenderness overlying trochanters, no tenderness about patella, quad tendon, patellar tendon. No tenderness at tibial tuberosity. Ankle: normal passive ROM she notes she cannot use the right. Babinski downgoing today. not tender to palpation along medial/lateral malleolus. . Spine/Ribs- No visible deformities, paraspinal tenderness C/T/L no known fractures, normal strength, Normal ROM. Normal stability No tenderness along C/T/L spinous processes. Repeated exam steps today without change from that compared to yesterday. Neurological: General- Moves bilateral UE but reduced ability to move bilateral LE. Symmetrical face and body posture. Cranial nerves- individually evaluated II-XII and intact. PERRLA, Normal EOMI, visual/special senses appear intact, Face is symmetrical and normal sensation/movement, normal tongue, normal strength/posture of neck musculature. Reflexes- intact bilateral UE DTR 2+ for bicep, brachial, tricep but 1+ bilateral patellar, Achilles. Ankle clonus normal with 2 beats. Strength- 5/5 bilateral UE and 4/5 bilaterally at hip flexors bilaterally, 3+/5 below knee on right. Soft touch- appears intact bilateral UE and ?reduced RLE. Temperature sensation- intact bilateral UE and reduced bilateral LE. Cerebellar testing-Rapid alternating movements intact. Heel byers reduced bilaterally. As w/ MSK exam, neuro exam unchnaged. NO eye pathology. No +babinski. Neuropsych: Oriented- Person, place, time. (AAOx3), Mood/affect- Flat. Speech-Mildly slurred speech, Quiet volume. Thought content- reduced. History/timeline are difficult to follow. Difficulty with basic computations and spelling today. Associations- no SI/HI, no hallucinations, delusions, obsessions. Judgment/insight- Questionable. Memory-Reduced. Laboratory Results - last 24 hr 01/01/20 01/01/20 01/01/20 08:55 08:55 08:55 WBC 6.75 RBC 3.67 L Hgb 9.6 L Hct 31.2 L MCV 85.0 MCH 26.2 L MCHC 30.8 L RDW Coeff of Kylee 14.9 H Plt Count 226 Immature Gran % (Auto) 0.6 Neut % (Auto) 63.8 Lymph % (Auto) 25.9 Crisp % (Auto) 8.3 Eos % (Auto) 1.0 Baso % (Auto) 0.4 Neut # (Auto) 4.3 Lymph # (Auto) 1.8 Crisp # (Auto) 0.6 Eos # (Auto) 0.1 Baso # (Auto) 0.0 Immature Gran # (Auto) 0.0 Sodium 139.7 Potassium 3.64 Chloride 103.6 Carbon Dioxide 29.3 Anion Gap 10.44 BUN 22.9 H Creatinine 2.03 H Estimated GFR (MDRD) 25.00 BUN/Creatinine Ratio 11.28 Glucose 121.9 H Calcium 9.65 Total Bilirubin 0.35 AST 110.2 H ALT 25.3 Alkaline Phosphatase 113.1 Ammonia Total Creatine Kinase 5975.3 H CK-MB (CK-2) 82.400 H* CK-MB (CK-2) % 1.3700 Troponin I 0.014 NT-Pro-B Natriuret Pep 674.000 H Total Protein 8.31 H Albumin 4.16 Globulin 4.15 Albumin/Globulin Ratio 1.00 Urine Color Urine Clarity Urine pH Ur Specific [place] Urine Protein Urine Glucose (UA) Urine Ketones Urine Blood Urine Nitrite Urine Bilirubin Urine Urobilinogen Ur Leukocyte Esterase Urine Microscopic RBC Urine Microscopic WBC Ur Squamous Epith Cells Hyaline Casts Urine Mucus Urine Opiates Screen Ur Oxycodone Screen Urine Methadone Screen Ur Propoxyphene Screen Ur Barbiturates Screen U Tricyclic Antidepress Ur Phencyclidine Scrn Ur Amphetamine Screen U Methamphetamines Scrn U Benzodiazepines Scrn Urine Cocaine Screen U Cannabinoids Screen Plasma/Serum Alcohol 01/01/20 01/01/20 01/01/20 09:50 10:40 13:02 WBC RBC Hgb Hct MCV MCH MCHC RDW Coeff of Kylee Plt Count Immature Gran % (Auto) Neut % (Auto) Lymph % (Auto) Crisp % (Auto) Eos % (Auto) Baso % (Auto) Neut # (Auto) Lymph # (Auto) Crisp # (Auto) Eos # (Auto) Baso # (Auto) Immature Gran # (Auto) Sodium Potassium Chloride Carbon Dioxide Anion Gap BUN Creatinine Estimated GFR (MDRD) BUN/Creatinine Ratio Glucose Calcium Total Bilirubin AST ALT Alkaline Phosphatase Ammonia < 8.7 L Total Creatine Kinase CK-MB (CK-2) CK-MB (CK-2) % Troponin I NT-Pro-B Natriuret Pep Total Protein Albumin Globulin Albumin/Globulin Ratio Urine Color Yellow Urine Clarity Clear Urine pH 5.5 Ur Specific [place] 1.020 Urine Protein 1+ H Urine Glucose (UA) Negative Urine Ketones Negative Urine Blood 2+ H Urine Nitrite Negative Urine Bilirubin Negative Urine Urobilinogen 0.2 Ur Leukocyte Esterase Negative Urine Microscopic RBC 5-10 Urine Microscopic WBC 0-2 Ur Squamous Epith Cells 2-5 Hyaline Casts 0-2 Urine Mucus 1+ Urine Opiates Screen Ur Oxycodone Screen Urine Methadone Screen Ur Propoxyphene Screen Ur Barbiturates Screen U Tricyclic Antidepress Ur Phencyclidine Scrn Ur Amphetamine Screen U Methamphetamines Scrn U Benzodiazepines Scrn Urine Cocaine Screen U Cannabinoids Screen Plasma/Serum Alcohol < 10.0 01/01/20 01/01/20 01/02/20 17:20 18:00 01:35 WBC RBC Hgb Hct MCV MCH MCHC RDW Coeff of Kylee Plt Count Immature Gran % (Auto) Neut % (Auto) Lymph % (Auto) Crisp % (Auto) Eos % (Auto) Baso % (Auto) Neut # (Auto) Lymph # (Auto) Crisp # (Auto) Eos # (Auto) Baso # (Auto) Immature Gran # (Auto) Sodium 137.8 Potassium 3.67 Chloride 107.5 H Carbon Dioxide 23.8 Anion Gap 10.17 BUN 21.6 H Creatinine 1.31 H D Estimated GFR (MDRD) 41.00 BUN/Creatinine Ratio 16.48 Glucose 116.4 H Calcium 8.76 Total Bilirubin AST ALT Alkaline Phosphatase Ammonia Total Creatine Kinase 7858.6 H 6377.4 H CK-MB (CK-2) 102.000 H* 61.500 H* CK-MB (CK-2) % 1.2900 0.9600 Troponin I < 0.012 < 0.012 NT-Pro-B Natriuret Pep Total Protein Albumin Globulin Albumin/Globulin Ratio Urine Color Urine Clarity Urine pH Ur Specific [place] Urine Protein Urine Glucose (UA) Urine Ketones Urine Blood Urine Nitrite Urine Bilirubin Urine Urobilinogen Ur Leukocyte Esterase Urine Microscopic RBC Urine Microscopic WBC Ur Squamous Epith Cells Hyaline Casts Urine Mucus Urine Opiates Screen Positive H Ur Oxycodone Screen Negative Urine Methadone Screen Negative Ur Propoxyphene Screen Negative Ur Barbiturates Screen Negative U Tricyclic Antidepress Positive H Ur Phencyclidine Scrn Negative Ur Amphetamine Screen Negative U Methamphetamines Scrn Negative U Benzodiazepines Scrn Positive H Urine Cocaine Screen Negative U Cannabinoids Screen Negative Plasma/Serum Alcohol 01/02/20 01/02/20 05:05 05:05 WBC 6.82 RBC 3.22 L Hgb 8.4 L Hct 27.2 L MCV 84.5 MCH 26.1 L MCHC 30.9 L RDW Coeff of Kylee 14.7 Plt Count 180 Immature Gran % (Auto) 0.3 Neut % (Auto) 58.1 Lymph % (Auto) 33.7 Crisp % (Auto) 5.4 Eos % (Auto) 2.2 Baso % (Auto) 0.3 Neut # (Auto) 4.0 Lymph # (Auto) 2.3 Crisp # (Auto) 0.4 Eos # (Auto) 0.2 Baso # (Auto) 0.0 Immature Gran # (Auto) 0.0 Sodium 137.2 Potassium 3.59 Chloride 106.5 Carbon Dioxide 27.0 Anion Gap 7.29 BUN 17.8 H Creatinine 1.03 Estimated GFR (MDRD) 54.00 BUN/Creatinine Ratio 17.28 Glucose 97.8 Calcium 8.33 L Total Bilirubin 0.40 AST 145.2 H D ALT 34.4 Alkaline Phosphatase 90.5 Ammonia Total Creatine Kinase CK-MB (CK-2) CK-MB (CK-2) % Troponin I NT-Pro-B Natriuret Pep Total Protein 6.84 Albumin 3.35 L Globulin 3.49 Albumin/Globulin Ratio 0.95 Urine Color Urine Clarity Urine pH Ur Specific [place] Urine Protein Urine Glucose (UA) Urine Ketones Urine Blood Urine Nitrite Urine Bilirubin Urine Urobilinogen Ur Leukocyte Esterase Urine Microscopic RBC Urine Microscopic WBC Ur Squamous Epith Cells Hyaline Casts Urine Mucus Urine Opiates Screen Ur Oxycodone Screen Urine Methadone Screen Ur Propoxyphene Screen Ur Barbiturates Screen U Tricyclic Antidepress Ur Phencyclidine Scrn Ur Amphetamine Screen U Methamphetamines Scrn U Benzodiazepines Scrn Urine Cocaine Screen U Cannabinoids Screen Plasma/Serum Alcohol CXR no acute process Xray Pelvis No acute process EKG Sinus arrythmia with LBBB (Chronic). Wide QRS. Telemetry: Same as EKG. CT Head w/o: IMPRESSION: 1. Chronic age related changes. 2. No acute intracranial hemorrhage. CT Cervical: IMPRESSION: Loss normal cervical lordosis suggesting paraspinal muscle spasm. No acute findings (1) KHLOE (acute kidney injury): Status: Acute Code(s): N17.9 - Acute kidney failure, unspecified SNOMED Code(s): 08985560 (2) Rhabdomyolysis: Status: Acute Code(s): M62.82 - Rhabdomyolysis SNOMED Code(s): 692610520 (3) BMI 45.0-49.9, adult: Status: Acute Code(s): Z68.42 - Body mass index (BMI) 45.0-49.9, adult SNOMED Code(s): 307224573 (4) Abnormal drug screen: Status: Acute Code(s): R89.2 - Abnormal level of other drugs, medicaments and biological substances in specimens from other organs, systems and tissues SNOMED Code(s): 127688975 (5) Bradycardia: Status: Acute Code(s): R00.1 - Bradycardia, unspecified SNOMED Code(s): 14437682 (6) Hypertension: Status: Acute Code(s): I10 - Essential (primary) hypertension SNOMED Code(s): 83940445 (7) Chronic prescription opiate use: Status: Acute Code(s): Z79.891 - ocean transportation intermediary (current) use of opiate analgesic SNOMED Code(s): 247354983 (8) Pre-diabetes: Status: Acute Code(s): R73.03 - Prediabetes SNOMED Code(s): 527733155 (9) Ataxia: Status: Acute Code(s): R27.0 - Ataxia, unspecified SNOMED Code(s): 25386840 Plan: KHLOE w/ Rhabdomyelosis: Improving. The patient creatinine is back to baseline. CK and CKMB trended but then trended down again. Fluid hydration 100ml NS/hour. I+O monitored and she has had a small increase in volume, which is good for renal function. Chronic anemia suspected chronic disease with normocytic process. She has been on telemetry and had LBBB, wide QRS, sinus arrhytmia, bradycardia. Known chronic CAD, chronic cardiac disease. Chronic opiate/benzo use, chronic deconditioning. She appears to be nearly back to baseline. Again creatinine has returned and surpassed baseline, now monitoring the CK parameters. Walker in room. I will see if Phys therapy can walk with her a little today. Nothing vigorous but just OOB. Lovenox has been used for DVT prophy. She has no bruising, no bleeding. - Admit to room 116 [Observation] possible d/c this pm vs tomorrow am. - Fluids increased 100ml/hour. - Telemetry - Tar[place] Cath in place: Strict I+O - CBC/CMP in am if she remains overnight - Admission CrCl 51 this am crCl 110 ml (double admit). - Continue home meds except nebs changed to inhalers. - CK to be repeated 111130 Ataxia: Chronic problem, minimal insight into diagnosis. Using opiates/benzos for this problem. Needs OP f/u with neuro. Will check on the status of this referral. Phys therapy to hopefully see her this am. Imaging reviewed and negative. Consider OP MRI eval cerebellum. - MRI brain w/o as outpatient. Chronic Anemia: Normocytic. Suspect Anemia chronic disease. Normal RDW, normal MCV. Monitor. Consider OP Heme/onc. CHF: Chronic/stable at present. - Echo as OP. 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 HTN: Chronic stable and now at baseline. Continue home meds. Essential HTN w/ goal <140/90. - Continue home meds. - Torsemide dose to remain at 20mg, not 40mg. Diet: Regular Activity: Up with assist. DVT Prophy: Lovenox 40mg subcutaneous daily. Disposition: Expect d/c either this pm or tomorrow am should I get one more improvement in CK/CKMB with trending to improved. I suspect she has been optimized from a medical standpoint with IV fluids/hydration. Now story has changed to maybe an hour fall. Still feels she was lying around more previous few days. Needs specialist input as outpatient for chronic medical problems. Overnight biggest issues for her were pain and desire for klonopin/norco. >35 minutes rounding this am, discussing with am nurse, case management, patient discussion, review of labs/imaging and overnight tele with her. Reviewed EKG this am with her. time not including documentation.
[2020-01-02] MEDS ORDERED: KLONOPIN PO PRN (07:30)
[2020-01-02] MEDS ORDERED: ASPIRIN EC PO SCH (08:30)
[2020-01-02] MEDS: ENTRESTO 24 MG-26 MG TABLET PO SCH (08:47)
[2020-01-02] MEDS ORDERED: LOVENOX SUBCUT SCH (09:00)
[2020-01-02] MEDS ORDERED: ASPIRIN PO SCH (09:00)
[2020-01-02] MEDS ORDERED: DUONEB NEB SCH (09:00)
[2020-01-02] MEDS ORDERED: ALDACTONE PO SCH (09:00)
[2020-01-02] MEDS ORDERED: NORVASC PO SCH (09:00)
[2020-01-02] MEDS ORDERED: PLAVIX PO SCH (09:00)
--- NOTE | 2020-01-02 10:33 | RS.PTINEVL ---
Subjective - Patient information Date of Evaluation: 01/02/20 Date of Arrival on Unit: 01/01/20 Admitted From:: Home Diagnosis: acute renal insufficiency, rhabdomyolysis, fall Usual Living Arrangement: With Spouse Home Environment: House, Level/No stairs Medical History: Hypertension, CHF Medical History Comments:: CAD, ataxia, anxiety, chronic back pain, hypothyroid, major depressive disorder, HI, pneumonia, pulmonary vascular congestion LATEX ALLERGY?: No Surgical History: Hysterectomy Medications: see chart Subjective Information/ Patient Comments:: pt sitting up in recliner begging RN for pain meds. RN states she cannot have pain meds and offering a tylenol because her HR is too low. RN encouraged pt to amb to elevate HR. David SAMUELSexplosive ordnance manager reports that MD ordered for PT to see if pt could amb but not to amb far does not want enzymes to elevate. - Level of function Prior to this admission, the patient could do the following:: Independent Selfcare, Independent ADL's, Independent Ambulation, Perform [employer] Blasting/Cooking Current Level of Function: Partially Dependent Current Equipment Used at Home: W/C; Walker; Shower Chair; Grabber Pain Assessement - Location BLE Description: Aching Pain Behavior: Rubbing Site, Facial Grimacing Pain Aggravating Factors: Changing Position, Exercise/Activity, Standing, Sitting, Walking Pain Alleviating Factors: Medication Interventions - Objective Patient Orientation: Person, Place, Time, Situation Current Interventions: IV's, Telemetry, [place] Catheter Range of Motion - ROM Right Upper Extremity AROM: WFL's Left Upper Extremity AROM: WFL's Right Lower Extremity AROM: WFL's Left Lower Extremity AROM: WFL's Muscle Strength - Muscle Strength Right Upper Extremity Strength: Mild Weakness (grossly 4/5) Left Upper Extremity Strength: Mild Weakness (grossly 4/5) Right Lower Extremity Strength: Mild Weakness (hip flex 4-/5, knee flex/ext 4/5, ankle DF/PF 4/5) Left Lower Extremity Strength: Mild Weakness (hip flex 4-/5, knee flex/ext 4/5, ankle DF/PF 4/5) Sensation - Sensation Right Upper Extremity Sensation: Intact/Normal Left Upper Extremity Sensation: Intact/Normal Right Lower Extremity Sensation: Impaired Left Lower Extremity Sensation: Impaired Comments: pt report n/t BLE Palpation Palpation Findings: Tenderness Comments:: pt c/o tenderness with MMT Balance - Sitting Balance and Reactions Static Sitting Balance: Good Dynamic Sitting Balance: Fair - Standing Balance and Reactions Static Standing Balance: Fair Dynamic Standing Balance: Poor Standing Equilibrium Reactions: Delayed Left, Delayed Right Standing Protective Reactions: Delayed Left, Delayed Right Functional Mobility - Transfers Sit to Stand: CGA Stand to Sit: CGA - Safety Awareness Safety Awareness: Fair PAVAN INDEX SCORE: n/a Ambulation - Ambulation Assistive Device Used: Rolling Walker Orthotic/Prosthetic Device: No Distance: 25ft Assistance needed with Ambulation: CGA Gait Deviations: Forward posture, Short stride Factors Affecting Ambulation: Decreased Balance, Pain, Weakness, Limited E ndurance Treatment time - Time with patient Length of Evaluation: 21 Total treatment time: 21 Patient Education - Education Patient Education: Activity Modification, Education of Plan of Care Teaching Recipient: Patient Teaching Methods: Discussion, Demonstration Assessment - Assessment Problem List:: Decreased level of function, Requires training/education, Decreased safety/Risk of falls, Weakness, Pain limits previous level of function Rehab Potential: Fair Further Therapy Indicated?: No Candidate for Swing Bed for Therapy Services?: Do not feel pt is candidate for swing bed due to pt currently in observation as well as pt is at higher functi onal level. Comments: Feel pt would benefit from home health PT for strengthening, and safety with functional mobility Evaluation Complexity: HISTORY: Medium, EXAM OF BODY SYSTEMS: Medium, CLINICAL PRESENTATION: Medium, CLINICAL DECISION MAKING: Medium Patient's Goal(s): get her pain medication, go home Short Term Goals GOAL #1: . GOAL #2: . GOAL #3: . GOAL #4: . Chcf Goals GOAL #1: . GOAL #2: . GOAL #3: . Comments: supervision for household distances Plan Other:: evaluation only Frequency of Treatment: One time treatment Duration of Treatment: One Time Treatment Anticipated Discharge Destination: Home Treatment Diagnosis (ICD 10 Codes): balance impaired R 26.81. difficulty walking R 26.2 Has the Physician been added for Co-signature?: Yes
[2020-01-02 14:02] VITALS: BP 122/71; TEMP 98.2
--- NOTE | 2020-01-02 16:29 | PCM.DC ---
Final Diagnosis: 1. KHLOE: RESOLVED 2. Rhabdomyolysis with elevated CK/CKMB s/p Fall. 3. Chronic ataxia 4. Chronic anemia 5. Generalized weakness 6. Chronic opiate use 7. Chronic benzo Use 8. BMI 49.2 9. Abnormal UDS 10. Bradycardia 11. LBBB chronic 12. History CAD/CHF 13. Pre DM (1) KHLOE (acute kidney injury): Status: Acute Code(s): N17.9 - Acute kidney failure, unspecified SNOMED Code(s): 26164985 (2) Rhabdomyolysis: Status: Acute Code(s): M62.82 - Rhabdomyolysis SNOMED Code(s): 946987680 Qualifiers: Encounter type: initial encounter Rhabdomyolysis type: traumatic Qualified Code(s): T79.6XXA - Traumatic ischemia of muscle, initial encounter (3) BMI 45.0-49.9, adult: Status: Acute Code(s): Z68.42 - Body mass index (BMI) 45.0-49.9, adult SNOMED Code(s): 255617052 (4) Abnormal drug screen: Status: Acute Code(s): R89.2 - Abnormal level of other drugs, medicaments and biological substances in specimens from other organs, systems and tissues SNOMED Code(s): 417693859 (5) Bradycardia: Status: Acute Code(s): R00.1 - Bradycardia, unspecified SNOMED Code(s): 62691955 (6) Hypertension: Status: Acute Code(s): I10 - Essential (primary) hypertension SNOMED Code(s): 31460236 (7) Chronic prescription opiate use: Status: Acute Code(s): Z79.891 - 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 Found to have KHLOE Creatinine 2.03, CK/CKMB elevated. Chronic ataxia. Chronic opiates/benzos, concern for oversedation. Prognosis at Discharge: Improved back to baseline. She has been medically opti mized. Condition at Discharge: Stable, back to baseline. Creatinine elevation resolved, CKMB/CK improving. Chronic anemia hgb ~8.5. Close f/u. CBC as outpatient monday. Outpatient phys therapy referral to be placed. Medications at Discharge: Ambulatory Orders Medication Instructions Recorded aspirin 1 tab PO DAILY 06/19/18 ipratropium-albuterol 3 ml NEB DAILY 08/28/19 levothyroxine 50 mcg tablet 50 mcg PO DAILY #30 tab-cap 09/26/19 amlodipine 5 mg tablet 2.5 mg PO QDAY #60 tab 11/21/19 clopidogrel 75 mg tablet 75 mg PO QDAY #90 tab 11/21/19 trazodone 50 mg tablet 50 mg PO QHS PRN #90 tab 11/21/19 sacubitril 49 mg-valsartan 51 mg 1 tab PO BID #60 tab 12/19/19 tablet spironolactone 25 mg tablet See Rx Instructions .ROUTE 12/19/19 .COMPLEX #30 unspecified torsemide 20 mg tablet 20 mg PO DAILY #60 tab-cap 12/19/19 clonazepam 0.5 mg tablet 0.5 mg PO Q8H PRN #90 tab 12/20/19 pregabalin 75 mg capsule 75 mg PO Q8H #90 cap 12/20/19 hydrocodone 10 mg-acetaminophen 1 tab PO Q8H PRN #90 tab 12/26/19 325 mg tablet Lab/Diagnostics: Laboratory Tests 01/01/20 01/01/20 01/01/20 08:55 08:55 08:55 WBC 6.75 RBC 3.67 L Hgb 9.6 L Hct 31.2 L MCV 85.0 MCH 26.2 L MCHC 30.8 L RDW Coeff of Kylee 14.9 H Plt Count 226 Immature Gran % (Auto) 0.6 Neut % (Auto) 63.8 Lymph % (Auto) 25.9 [place] % (Auto) 8.3 Eos % (Auto) 1.0 Baso % (Auto) 0.4 Neut # (Auto) 4.3 Lymph # (Auto) 1.8 [place] # (Auto) 0.6 Eos # (Auto) 0.1 Baso # (Auto) 0.0 Immature Gran # (Auto) 0.0 Sodium 139.7 Potassium 3.64 Chloride 103.6 Carbon Dioxide 29.3 Anion Gap 10.44 BUN 22.9 H Creatinine 2.03 H Estimated GFR (MDRD) 25.00 BUN/Creatinine Ratio 11.28 Glucose 121.9 H Calcium 9.65 Total Bilirubin 0.35 AST 110.2 H ALT 25.3 Alkaline Phosphatase 113.1 Ammonia Total Creatine Kinase 5975.3 H CK-MB (CK-2) 82.400 H* CK-MB (CK-2) % 1.3700 Troponin I 0.014 NT-Pro-B Natriuret Pep 674.000 H Total Protein 8.31 H Albumin 4.16 Globulin 4.15 Albumin/Globulin Ratio 1.00 Urine Color Urine Clarity Urine pH Ur Specific [place] Urine Protein Urine Glucose (UA) Urine Ketones Urine Blood Urine Nitrite Urine Bilirubin Urine Urobilinogen Ur Leukocyte Esterase Urine Microscopic RBC Urine Microscopic WBC Ur Squamous Epith Cells Hyaline Casts Urine Mucus Urine Opiates Screen Ur Oxycodone Screen Urine Methadone Screen Ur Propoxyphene Screen Ur Barbiturates Screen U Tricyclic Antidepress Ur Phencyclidine Scrn Ur Amphetamine Screen U Methamphetamines Scrn U Benzodiazepines Scrn Urine Cocaine Screen U Cannabinoids Screen Plasma/Serum Alcohol 01/01/20 01/01/20 01/01/20 09:50 10:40 13:02 WBC RBC Hgb Hct MCV MCH MCHC RDW Coeff of Kylee Plt Count Immature Gran % (Auto) Neut % (Auto) Lymph % (Auto) [place] % (Auto) Eos % (Auto) Baso % (Auto) Neut # (Auto) Lymph # (Auto) [place] # (Auto) Eos # (Auto) Baso # (Auto) Immature Gran # (Auto) Sodium Potassium Chloride Carbon Dioxide Anion Gap BUN Creatinine Estimated GFR (MDRD) BUN/Creatinine Ratio Glucose Calcium Total Bilirubin AST ALT Alkaline Phosphatase Ammonia < 8.7 L Total Creatine Kinase CK-MB (CK-2) CK-MB (CK-2) % Troponin I NT-Pro-B Natriuret Pep Total Protein Albumin Globulin Albumin/Globulin Ratio Urine Color Yellow Urine Clarity Clear Urine pH 5.5 Ur Specific [place] 1.020 Urine Protein 1+ H Urine Glucose (UA) Negative Urine Ketones Negative Urine Blood 2+ H Urine Nitrite Negative Urine Bilirubin Negative Urine Urobilinogen 0.2 Ur Leukocyte Esterase Negative Urine Microscopic RBC 5-10 Urine Microscopic WBC 0-2 Ur Squamous Epith Cells 2-5 Hyaline Casts 0-2 Urine Mucus 1+ Urine Opiates Screen Ur Oxycodone Screen Urine Methadone Screen Ur Propoxyphene Screen Ur Barbiturates Screen U Tricyclic Antidepress Ur Phencyclidine Scrn Ur Amphetamine Screen U Methamphetamines Scrn U Benzodiazepines Scrn Urine Cocaine Screen U Cannabinoids Screen Plasma/Serum Alcohol < 10.0 01/01/20 01/01/20 01/02/20 17:20 18:00 01:35 WBC RBC Hgb Hct MCV MCH MCHC RDW Coeff of Kylee Plt Count Immature Gran % (Auto) Neut % (Auto) Lymph % (Auto) [place] % (Auto) Eos % (Auto) Baso % (Auto) Neut # (Auto) Lymph # (Auto) [place] # (Auto) Eos # (Auto) Baso # (Auto) Immature Gran # (Auto) Sodium 137.8 Potassium 3.67 Chloride 107.5 H Carbon Dioxide 23.8 Anion Gap 10.17 BUN 21.6 H Creatinine 1.31 H D Estimated GFR (MDRD) 41.00 BUN/Creatinine Ratio 16.48 Glucose 116.4 H Calcium 8.76 Total Bilirubin AST ALT Alkaline Phosphatase Ammonia Total Creatine Kinase 7858.6 H 6377.4 H CK-MB (CK-2) 102.000 H* 61.500 H* CK-MB (CK-2) % 1.2900 0.9600 Troponin I < 0.012 < 0.012 NT-Pro-B Natriuret Pep Total Protein Albumin Globulin Albumin/Globulin Ratio Urine Color Urine Clarity Urine pH Ur Specific [place] Urine Protein Urine Glucose (UA) Urine Ketones Urine Blood Urine Nitrite Urine Bilirubin Urine Urobilinogen Ur Leukocyte Esterase Urine Microscopic RBC Urine Microscopic WBC Ur Squamous Epith Cells Hyaline Casts Urine Mucus Urine Opiates Screen Positive H Ur Oxycodone Screen Negative Urine Methadone Screen Negative Ur Propoxyphene Screen Negative Ur Barbiturates Screen Negative U Tricyclic Antidepress Positive H Ur Phencyclidine Scrn Negative Ur Amphetamine Screen Negative U Methamphetamines Scrn Negative U Benzodiazepines Scrn Positive H Urine Cocaine Screen Negative U Cannabinoids Screen Negative Plasma/Serum Alcohol 01/02/20 01/02/20 01/02/20 05:05 05:05 12:00 WBC 6.82 RBC 3.22 L Hgb 8.4 L Hct 27.2 L MCV 84.5 MCH 26.1 L MCHC 30.9 L RDW Coeff of Kylee 14.7 Plt Count 180 Immature Gran % (Auto) 0.3 Neut % (Auto) 58.1 Lymph % (Auto) 33.7 [place] % (Auto) 5.4 Eos % (Auto) 2.2 Baso % (Auto) 0.3 Neut # (Auto) 4.0 Lymph # (Auto) 2.3 [place] # (Auto) 0.4 Eos # (Auto) 0.2 Baso # (Auto) 0.0 Immature Gran # (Auto) 0.0 Sodium 137.2 Potassium 3.59 Chloride 106.5 Carbon Dioxide 27.0 Anion Gap 7.29 BUN 17.8 H Creatinine 1.03 Estimated GFR (MDRD) 54.00 BUN/Creatinine Ratio 17.28 Glucose 97.8 Calcium 8.33 L Total Bilirubin 0.40 AST 145.2 H D ALT 34.4 Alkaline Phosphatase 90.5 Ammonia Total Creatine Kinase 4708.0 H CK-MB (CK-2) 22.200 H* CK-MB (CK-2) % 0.4700 Troponin I NT-Pro-B Natriuret Pep Total Protein 6.84 Albumin 3.35 L Globulin 3.49 Albumin/Globulin Ratio 0.95 Urine Color Urine Clarity Urine pH Ur Specific [place] Urine Protein Urine Glucose (UA) Urine Ketones Urine Blood Urine Nitrite Urine Bilirubin Urine Urobilinogen Ur Leukocyte Esterase Urine Microscopic RBC Urine Microscopic WBC Ur Squamous Epith Cells Hyaline Casts Urine Mucus Urine Opiates Screen Ur Oxycodone Screen Urine Methadone Screen Ur Propoxyphene Screen Ur Barbiturates Screen U Tricyclic Antidepress Ur Phencyclidine Scrn Ur Amphetamine Screen U Methamphetamines Scrn U Benzodiazepines Scrn Urine Cocaine Screen U Cannabinoids Screen Plasma/Serum Alcohol CXR: negative Pelvis Xray: negative CT head: Negative for acute. CT cervical spine: Negative for acute process. Cervical spasm. Education Provided to Patient and Family: 1. Diet changes d/w patient. Limit sugary caffeinated beverages. Maintain adequate hydration. 2. Anemia 3. Ataxia, reviewed 4. Safe position changes. Follow-ups: 1. Dr. Haskins 01/08/20 0900 2. CBC/CMP and CK/CKMB on monday01/06/20 Discharge Disposition: Home Hospital Course: Ms. Nai Ball is a 59 yr old CF who presented to ED 01/01/20 at 09:02 after a fall from seated position. She noted mild to moderate generalized weakness for 24 hours, slipped out of her chair. She denied any known injury from fall, no LOC, no fever, no pain anywhere at present, no N/V/D, no emesis, no DM. 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 Patient normally ambulates with/without walker as aid. She has seen me within 2 weeks in clinic and I have referred to neuro/pain management. Dr. Saha eval her in ED. Vitals showed temp 96.9, pulse 84, rr 16, BP 162/94. Meds reviewed and taking levothyroxine 50mcg daily, plavix 75 daily, norvasc 5mg daily, trazodone 50mg qhs, lyrica 75mg q8 hours, klonopin 0.5mg TID, ASA 325 daily, duonebs PRN, entresto 49-51, aldactone 25 daily, torsemide 20mg daily, norco 10-325 q 8hours. No E/o infection, did not meet SIRS criteria. NO recent URI, no recent GI symptoms. Reported weakness, denied fever, vision changes, changes to HEENT system to include rhinorrhea, sore throat, epistaxis, No SOA, no PND, no Orthopnea, no cough. No Abd pain. No Dysuria, no changes in bowel/bladder function. No constipation. MSK joint pain, muscle stiffness. Labs WBC 6.75, hgb 9.6, plt 226. CMP showed sodium 139.7, K+ 3.64, BUN 22.9, CR 2.03. ALk phos 113, ast 110.2, ALT 25.3. NT OK BNP 674. Glucose was 121.9. A1C 4.65 09/30/19. Ammonia <8.7. Reviewed previous creatinine and her baseline is about 1.11. Her previous anemia has been chronic and hgb run 8.2-11 with avg in mid 9 range. Her AST was markedly elevated, ALT was normal. Ratio >2:1. I have ordered serum alcohol and a urine tox. Troponin I was 0.014, CK MB was 82.4 with CK 5975.3 elevated. I would like to trend those over next 12 hours to monitor. NT PRo BNP 674 and okay. Imaging pelvis: IMPRESSION: No acute findings or significant degenerative change. CXR: No acute disease. I was contacted by Dr. Saha from ED and noted patient had Acute renal failure and concern for rhabdo. Vitals/meds reviewed. EKG LBBB known/chronic and not new as seen on EKG 08/10/19. Admitted to observation for acute renal failure, Rhabdomyolsis and renal insufficiency. Reviewed labs. Last UDS on 09/30/19 and 11/26/19 did not have opiates in the UDS. She reported falling out of chair 8-12 hours prior to ED. She and I have talked about opiates/benzos in concern and she has denied ETOH. Per DR. Saha, they have placed a garcia, they gave her 1000 ml of NS. I want to be somewhat cautious of over fluid hydrating but her BP of 162/94 and her kidney function may be from rhabdo/dehydration. body weight 269, ideal 110, adjusted 174. Rate 100ml/hour chosen. CrCl 51. Reviewed meds. Yogesh herman CR 1.11. She was admitted to room 116 and I saw her at [16:24]. She reported no ETOH use, nor tobacco. She does not use any illicit substances. She fell yesterday, was down about 12 hours and could not get back up (SHE NOTED ON 01/02/20 that it was only 1 hour not >12 as listed). She does not have any bruising. She slid off the chair and could not get up. She tried to get to help her back up. She said he yelled at her and told her she could do it, "get up, you can do it, come on now get up." He would not help her up. She is fed up with , she wants him out. She has kicked him out, she noted he called a little bit ago. She said he was not kind to her. She noted pain management called her yesterday. She denies taking meds more than she should. She reported increased falls and "needs medicine." BMI 49.2. No new skin rash. No pain in legs/calves. Known CKD stage 3. She took meds yesterday, did not miss any of them per her report. took meds this am, then noted only her heart meds. In room, patient was drinking 1 coke, 1 Mellow yellow. I noted that she had 4 in the room. She said she was a [id number] and could not stop drinking them. She then noted she has been laying in bed x 4 days, sleeping sad and down. NO SI/HI. Poor habitus, poor health, ?ataxia. She was preoccupied with getting her medications than with discussing her current symptoms. I saw her in room for total of 45 minutes >70 minutes total spent on admission today not including documentation. Discussed with pharmacy, discussed home meds, changed nebs to inhalers due to COVID-19 restrictions. She was admitted to observation, Garcia catheter placed in ED, strict I+O, CK/CKMB trended, BMP afternoon, repeat labs in am. Limit caffeine/petty yellow. CT head ordered, CT cspine. She was reassessed am of 01/02/20. 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 Phys therapy saw her and recommended OP evaluation. No neuro at present (pending outpatient referral). Chronic opiate/Benzo use due to f/u with pain management as well (referral placed 2 weeks ago). Vitals overnight and unto this am included afebrile temperatures ranging 98.6-98.7, HR 64-82. BP 102-162/51-70. O2 98-100. Telemetry showed widened QRS 0.12-016 BBB and NSR with some sinus arrhythmia changes. She has had a long history of BBB at least back to the end of 2019 based on chart review. She had labs drawn at 1800 yesterday and showed CK increased from 5975.3 in ED to 7858.6 and CKMB up from 82.4 to 102. These were repeated early this am ~300 and were found to be trending downward at 6377.4 and 61.5 respectively. BMP last pm Showed normal sodium 137.8, normal K+ 3.67, BUN 21.6 and CR had dropped to 1.31 with GFR 41. Glucose 116.4. Am of d/c CBC showed WBC dropped from 6.75 to 6.82, Hgb dropped from 9.6 to 8.4 (which is within her normal range), platelet dropped from 226 to 180. CMP this am showed normal sodium 137.2, normal K+ 3.59. BuN further improved from 21.6 to 17.8, creatinine improved beyond baselne to 1.03. Glucose 97.4 and her GFR looked markedly better at 97.8. AST this am was 145.2 up from 110.2 yesterday. Serum ETOH was negative. Calcium this am was 8.33 but her alb was 3.35 and this corrected to normal at 8.8 based on low albumin. Troponin I trended the same and negative. Looking back through her chart, she has a persistent ck/CKmb back to at least 2015. As an example, her CK was 1491.6 08/15/18 and was 3089.5 on 08/14/18. Her CKMB was 35.9 08/14/18. I perused the nursing narratives and telemetry reports. It appears her biggest c/o is pain/need for norco/klonopin regularly (sooner than needed). UDS done yesterday showed +opi, +TCA, +Benzo. No other substances. Starting at 181 patient reported pain, called to nursing and norco given w/ reduction in back/leg/generalized pain. 1816 Klonopin requested due to anxiety and "leg pain" and she relaxed/had improved symptoms overall. 00:00 nursing noted watching TV, requested cup of ice, NS running at 100/hr and she had no c/o. Point of note patient has history of CHF. I chose to run fluids at closer to her ideal body weight and she had improved creatinine pretty quickly. We discussed at length yesterday pm not drinking the 4-5 mellow yellow cans she had in room due to caffeine and further renal stress/dehydration. At 01:10 She called to nursing noting SOA. O2 98%, HR 65, tele unchanged, nursing discussed breathing with patient, discussed positioning with patient, she received a phone call talked with friend and had no further c/o. 01:30 noted pain. and norco given for back/leg pain. Rested until 3:00. Asymptomatic/lisa/PVC on tele, no c/o pain/anxiety at that time. 03:48 labs called for CK/CKMB to nursing. 0400 patient c/o SOA again, then said she had chest pain. EKG completed LBB chronic/sinus arrhythmia, no acute ST/T changes. Patient mumbled to nurses. 98% on RA, on lovenox, was given inhalers. 0455 noted some left arm pain, nursing changed position, head of bed and patient was more comfortable. 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 No acute process, no acute changes in EKG, troponin negative x 3, CK/CKMB trending down, creatinine improving. EKG this am no acute changes, telemetry no acute changes, chronic anemia. At 0600 she c/o no cp/arm pain but wanted her klonopin for leg/arm pain. IV clear running 100/hour. NO changes in breathing, no e/o fluid overload. Reviewed urine and she had 650ml out yesterday ~0.51ml/kg when measured per shift and this am 350ml out documented in last 4 hours 0.47ml/kg/h our. Patient resting in bed again this am. I talked with her about her fall yesterday. She noted she was getting ready in the am and fell because it takes her so long to get ready. I asked when she fell and she said before 8. I noted yesterday she reported having been down for several more hours than that. She looked somewhat shocked and changed story to say that maybe it was longer than that. I discussed the above, discussed her symptoms and that cardiology will not be consulted while in hospital as there is nothing acute for them to address. She said she wanted Dr. Jacobs to be her doctor, I discussed at discharge we could help with that, then she said nevermind they were not taking new patients at present so she will continue seeing me. I responded that is fine as well. She has been referred to neuro and pain management, I will refer to physical therapy. She reports right leg is . She has good pulses and she withdraws to pain. She has walker in room. Has not been out of bed much but did note that she was out for a little while yesterday. She now has no soft drinks in room. D/w patient will repeat labs around 11-12 for CK/CKMB and if continued improvement plan on D/C home with f/u with me next week. Her biggest issues are chronic heart disease that a cardiology will be needed as outpatient. Additionaly Ataxia needs neuro involvement. Back pain/leg pain pain management involvement. Chronic opiate/benzo use concerning for addictive properties. Repeated CK at 4708 and CKMB 22 11 oclock today. Medically optimized, patient is ready for d/c home. She will f/u with me in clinic 01/08/20 at 09 am. Would like labs monday01/06/20. Day of D/C physical exam. Constitutional: Appearance-unchanged from previous evaluation. Still w/o acute distress, Consistent with stated age. Less somnolent. Orientation- Oriented x 3, alert Habitus: Morbidly obese. General- Patient is still grumpy. Integumentary: General-No rashes, ulcers or lesions noted. Left AC IV in place, c/d/i. ENMT: Nares- bilateral quiet airflow, no discharge. Nasal mucosa- No bleeding noted and no ulcerations observed. [place], moist. Turbinates non boggy. Lips- normal color, moist without cracks/lesions Oral Cavity/Palate- hard/soft palate intact without lesions, oral mucosa pink and moist. Tongue normal midline. Oropharynx- no pharyngeal erythema, Uvula midline. No post nasal drip. No exudate. CHEST/LUNG: Normal to mildly decreased effort, normal full sentences. NO rales, no audible wheezes. NO Cough during our 30 minute conversation this am. She is in no distress, no use of accessory muscles. Overall Decreased effort but clear. CARDIOVASCULAR: Displaced PMI, mid sternal scar c/d/i. Auscultation- Regular rate and rhythm. Murmur noted all areas of heart. Radiated into axilla and carotid II-III/ in recumbent position. ABDOMEN: Inspection- Prominent central adiposity. Auscultation- Bowel sounds normal, no abdominal bruits. Palpation/Percussion- soft, non-tender, no rebound tenderness, no rigidity (guarding), no jar tenderness, no masses. Liver/spleen -no appreciable hepatosplenomegaly, exam limited by habitus. : Garcia cath in place. No e/o infection. Peripheral Vascular: Upper extremity Left- Normal temperature with pink nailbeds and no ulcerations. Upper extremity Right- Normal temperature with pink nailbeds and no ulcerations. Lower extremity- Normal temperature with pink nailbeds and no ulcerations. DP pulses 2+ bilaterally. Pedal hair intact. Normal capillary refill. No calf tenderness today, reports right leg . Teetee negative. Musculoskeletal: Upper extremity- Again w/ Symmetrical posture. Decreased effort/Poor conditioning. Normal sensation along medial and lateral upper extremity proximally and distally. NO tenderness overlying shoulder, lateral/medial epicondyle, wrist hands. IV . Validation Technician 5/5 and strength 5/5 bilateral UE. Elbow palpated, no tenderness overlying olecranon. Normal supination, pronation to active/passive ROM and to resisted rotation. Bicep insertion/tricep insertion appear normal without obvious pathology. Rotator cuff evaluated and intact. Normal wrist ROM bilaterally. Normal hand movement, intrinsic muscles of hands normal. No tenderness to palpation of hands/wrists/elbows. Lower extremity- Hip: Not tender to palpation with compression. She has decreased hip ROM bilaterally. She has reduced hip flexor strength, reduced ability to flex against gravity. Scar right knee from prior replacement. She reports no sensation RLE but with withdraw from pain. No erythema of surrounding tissue, no e/o infection. Reduced strength and tone bilateral LE. Tuning fork testing negative on right normal on left. NOrmal DP pulses on bilateral feet. Knee: Knee ROM reduced. She has 0 to ~90 degress of flexion. Tight Quad, IT, hamstring, hip flexors. No tenderness overlying trochanters, no tenderness about patella, quad tendon, patellar tendon. No tenderness at tibial tuberosity. Ankle: normal passive ROM she notes she cannot use the right. Babinski downgoing today. not tender to palpation along medial/lateral malleolus. . Spine/Ribs- No visible deformities, paraspinal tenderness C/T/L no known fractures, normal strength, Normal ROM. Normal stability No tenderness along C/T/L spinous processes. Repeated exam steps today without change from that compared to yesterday. Neurological: General- Moves bilateral UE but reduced ability to move bilateral LE. Symmetrical face and body posture. Cranial nerves- individually evaluated II-XII and intact. PERRLA, Normal EOMI, visual/special senses appear intact, Face is symmetrical and normal sensation/movement, normal tongue, normal strength/posture of neck musculature. Reflexes- intact bilateral UE DTR 2+ for bicep, brachial, tricep but 1+ bilateral patellar, Achilles. Ankle clonus normal with 2 beats. Strength- 5/5 bilateral UE and 4/5 bilaterally at hip flexors bilaterally, 3+/5 below knee on right. Soft touch- appears intact bilateral UE and ?reduced RLE. Temperature sensation- intact bilateral UE and reduced bilateral LE. Cerebellar testing-Rapid alternating movements intact. Heel byers reduced bilaterally. As w/ MSK exam, neuro exam unchnaged. NO eye pathology. No +babinski. Neuropsych: Oriented- Person, place, time. (AAOx3), Mood/affect- Flat. Speech- Mildly slurred speech, Quiet volume. Thought content- reduced. History/timeline are difficult to follow. Difficulty with basic computations and spelling today. Associations- no SI/HI, no hallucinations, delusions, obsessions. Judgment/insight- Questionable. Memory-Reduced. Plan: 1. D/C home 2. REsume home meds 3. Labs friday 01/05 4. F/U with me in clinic 01/07 5. OP physical therapy 6. OP referral neuro 7. OP referral to pain managent. 8. Weight loss d/w patient >30 minutes spent on discharge of patient today.
[2020-01-03] MEDS ORDERED: DEMADEX PO SCH (06:30)
[2020-01-03] MEDS ORDERED: SYNTHROID PO SCH (06:30)
== END 2020-01-02 16:21 | disposition home or self-care (01) ==
LOC: ED 08:36 → MEDSURG B 08:36
PROVIDERS: ADMIT Family Medicine; ATTEND Family Medicine
DX: M25.552 Pain in left hip; G47.00 Insomnia, unspecified; R41.0 Disorientation, unspecified; E78.5 Hyperlipidemia, unspecified; T79.6XXA Traumatic ischemia of muscle, initial encounter; R27.0 Ataxia, unspecified; F41.9 Anxiety disorder, unspecified; F32.9 Major depressive disorder, single episode, unspecified; W07.XXXA Fall from chair, initial encounter; Z96.651 Presence of right artificial knee joint; R07.9 Chest pain, unspecified; R73.03 Prediabetes; R89.2 Abnormal level of other drugs, medicaments and biological substances in specimens from other organs, systems and tissues; Z79.891 Long term (current) use of opiate analgesic; M25.551 Pain in right hip; M54.9 Dorsalgia, unspecified; G89.29 Other chronic pain; R53.83 Other fatigue; R06.02 Shortness of breath; I10 Essential (primary) hypertension; Z51.81 Encounter for therapeutic drug level monitoring; N17.9 Acute kidney failure, unspecified; R00.1 Bradycardia, unspecified; I25.10 Atherosclerotic heart disease of native coronary artery without angina pectoris; Z68.42 Body mass index [BMI] 45.0-49.9, adult; Z79.899 Other long term (current) drug therapy; E87.6 Hypokalemia; N18.3 Chronic kidney disease, stage 3 (moderate); D63.1 Anemia in chronic kidney disease; I44.7 Left bundle-branch block, unspecified; E66.01 Morbid (severe) obesity due to excess calories

== ENCOUNTER 2020-12-07 15:30 | Observation (INO) ==
[2020-12-07] MEDS ORDERED: SODIUM CHLORIDE 1,000 ML IV STA ×2 (16:04→18:56)
[2020-12-07 16:30] LABS: BASOPHILS % (AUTO) 0.5 % (0.0-3.0); EOSINOPHILS # (AUTO) 0.1 K/ul (0.0-0.7); EOSINOPHILS % (AUTO) 2.6 % (0.0-7.0); HEMATOCRIT 26.2 % (37.0-47.0); HEMOGLOBIN 7.4 g/dl (12.0-16.0); IMMATURE GRANULOCYTE % (AUTO) 0.2 % (0.0-5.0); LYMPHOCYTES % (AUTO) 24.3 (10.0-50.0); MEAN CORPUSCULAR HGB CONC 28.2 (31.8-35.4); MEAN CORPUSCULAR VOLUME 81.4 fl (81.0-99.0); MONOCYTES # (AUTO) 0.2 K/uL (0.4-2.0); NEUTROPHILS # (AUTO) 2.8 K/ul (2.0-6.9); NEUTROPHILS % (AUTO) 67.4 % (42.2-75.2); PLATELET COUNT 273 10^3/uL (140-440); RDW COEFFICIENT OF VARIATION 16.4 % (11.6-14.8); RED BLOOD COUNT 3.22 10^6/ul (4.20-5.40)
[2020-12-07 16:40] LABS: ALBUMIN 3.83 g/dL (3.5-5.0); ALKALINE PHOSPHATASE 124.4 U/L (53-141); ASPARTATE AMINO TRANSFERASE 20.6 U/L (14-36); BILIRUBIN,TOTAL 0.56 mg/dL (0.2-1.3); BLOOD UREA NITROGEN 15.4 mg/dL (7-17); CALCIUM 9.23 mg/dL (8.4-10.2); CARBON DIOXIDE 24.4 mmol/L (22-30.0); CHLORIDE 103.7 mmol/L (98-107); CREATININE 1.03 mg/dL (0.60-1.30); GLUCOSE 100.4 mg/dL (74-106); POTASSIUM 3.58 mmol/L (3.5-5.1); SODIUM 137.8 mmol/L (134.5-145); TOTAL PROTEIN 7.58 g/dL (6.3-8.2)
--- NOTE | 2020-12-07 16:40 | DI ---
EXAM: Chest one view, frontal view only. HISTORY: Weakness. COMPARISON: 08/16/2020. FINDINGS: CABG changes noted. Cardiac silhouette mildly enlarged. Mild vascular congestion and int erstitial prominence present. No consolidation, pleural effusion or pneumothorax detected. No acute osseous abnormality identified. IMPRESSION: Question mild pulmonary edema.
[2020-12-07 16:44] LABS: ANISOCYTOSIS 1+ (NOT PRESENT); HYPOCHROMASIA 2+ (NOT PRESENT); STOMATOCYTES 1+ (NOT PRESENT); TARGET CELLS 1+ (NOT PRESENT)
--- NOTE | 2020-12-07 16:52 | CT ---
EXAM: CT head without contrast. HISTORY: Weakness, dizziness. COMPARISON: 12/05/2020. TECHNIQUE: Multiple axial images of the brain were obtained from the skull base through the vertex w ithout intravenous contrast. Multiplanar reformats were provided. FINDINGS: There is no intracranial hemorrhage or extraaxial collection. The rankin-white differentiat ion is maintained without evidence for acute large vascular territory infarction. There are areas of periventricular and subcortical white matter low attenuation. The cortical sulci and cerebral ventr icles are symmetrically enlarged. The basal cisterns are well visualized. There is no hydrocephalus , mass effect, or midline shift. The paranasal sinuses and mastoid air cells are clear. The calvari um is intact. Since the prior study, there has been no significant interval change. IMPRESSION: 1. No acute intracranial abnormality. 2. Chronic small vessel ischemic changes and atrophy. All CT scans are performed using dose optimization techniques as appropriate to the performed exam an d include at least one of the following: Automated exposure control, adjustment of the mA and/or kV according t o size, and the use of iterative reconstruction technique.
[2020-12-07 16:57] LABS: PROTHROMBIN TIME 10.2 SEC (9.3-11.0)
[2020-12-07 17:06] LABS: TROPONIN I < 0.012 ng/ml (0.0000-0.120)
[2020-12-07 17:18] LABS: BILIRUBIN,URINE Negative (NEGATIVE); CLARITY,URINE Clear (CLEAR); COLOR,URINE Yellow (YELLOW); GLUCOSE, URINE (UA) Negative (NEGATIVE); KETONES,URINE Negative (NEGATIVE); LEUKOCYTE ESTERASE ,URINE 1+ (NEGATIVE); NITRITE,URINE Negative (NEGATIVE); PH,URINE 6.5 (5-9); PROTEIN,URINE Negative (NEGATIVE); URINE, BLOOD Negative (NEGATIVE); UROBILINOGEN,URINE 0.2 (0.2)
[2020-12-07 17:29] LABS: PARTIAL THROMBOPLASTIN TIME 23.8 SEC (23.9-40.0)
--- NOTE | 2020-12-07 18:48 | ED.PDOC ---
General ED Provider: Dr. CON OCONNOR MD Chief Complaint: Weakness Stated Complaint: multiple fall due to being very weak. Time Seen by Provider: 12/07/20 15:32 Mode of Arrival: Walk-In Information Source: Patient Exam Limitations: No limitations Primary Care Provider: ANTONIA KARIMI Nursing and Triage Documentation Reviewed and Agree: Yes Does patient meet sepsis criteria?: No System Inflammatory Response Syndrome: Not Applicable Sepsis Protocol: For patient's 13 years and over: Temp is 96.8 and below OR 101 and greater Pulse >90 BPM Resp >20/minute Acutely Altered Mental Status Are patient's symptoms suggestive of a new infection, such as: -Pneumonia -Skin, Soft Tissue -Endocarditis -UTI -Bone, Joint Infection -Implantable Device -Acute Abdominal Infection -Wound Infection -Meningitis -Blood Stream Catheter Infection -Unknown Neurological Complaint Exam Weakness Complaint/Exam Last Known Well: 3 days. Onset: Gradual Duration: 3 days Symptoms Are: Still present Timing: Constant Episodes Lasting: Days Initial Severity: Moderate Current Severity: Moderate Character: Reports Weak and Dizzy Aggravating: Reports Position change Alleviating: Reports Rest Associated Signs and Symptoms: Reports Nausea, Unsteady gait and Loss of balance; Denies Vomiting, Diaphoresis, Tinnitus, Chest pain, Short of air, Palpitations, GI blood loss, Visual changes, Decreased oral intake, Change in medication, Change in diet and OTC meds JVD Present: No Glascow Coma Scale (see protocol): 15 Nystagmus Present: No Gag Reflex Present: Yes Meningeal Signs Positive: No Focal Weakness: Present None Focal Sensory Loss: Present None Gait: Unsteady Differential Diagnoses: Labyrinthitis, Metabolic abnormalities and Other (anemia) Review of Systems Review Of Systems Constitutional: Reports Weakness Eyes: Reports No symptoms Ears, Nose, Mouth, Throat: Reports No symptoms Respiratory: Reports No symptoms Cardiac: Reports No symptoms GI: Reports No symptoms : Reports No symptoms Musculoskeletal: Reports Other (weakness) Neurological: Reports Weakness Endocrine: Reports No symptoms Hematologic/Lymphatic: Reports No symptoms All Other Systems: Reviewed and Negative [facility] Medical History (Updated 12/07/20 @ 19:47 by CON OCONNOR MD) Adult hypothyroidism Anxiety Ataxia CAD (coronary artery disease) Chronic back pain greater than 3 months duration Chronic kidney disease, stage 3 Chronic kidney disease, stage 3 (moderate) Colon cancer Congestive heart failure Difficulty in walking, not elsewhere classified Dyspnea, unspecified Early-onset cerebellar ataxia Heart failure, unspecified Hypercalcemia Hyperlipidemia Hypothyroidism Inflammatory liver disease, unspecified Major depressive disorder, recurrent, unspecified Muscle weakness (generalized) longterm resident Old myocardial infarction Other reduced mobility Pneumonia, unspecified organism Pre-diabetes Pulmonary vascular congestion Family History Mother Ataxia Heart disease Myocardial infarct FATHER Colon cancer Heart disease Myocardial infarct SISTER Heart disease Mentally challenged BROTHER Colon cancer, Onset Age: 43 Heart disease Myocardial infarct 19 CHILD Colon cancer, Onset Age: 30 Social History Smoking and tobacco status: Never smoker Passive smoking exposure: Yes () Who is smoking: other Alcohol intake: never Substance use type: does not use Deidre/synagogue: OTHER Special deidre needs: No Adopted: No Household members: spouse Housing: other Marital status: M Lives independently: Yes Number of children: 3 Number of grandchildren: 11 Highest education level completed: 10th grade service: No longterm: No Current occupational status: disabled Pets and animals: Yes (dog) Leisure activites: other History of recent travel: No Sexually active: No Do you think of yourself as: straight/heterosexual Current gender identity: female Seatbelt use: always Drives intoxicated or rides with intoxicated electric lift truck driver: No Current diet type/program: regular Caffeine: Yes ([facility]) Eating out: rarely or never Water heater temperature set < 120 degrees: Yes Working smoke detector in home: Yes Fire extinguisher in home: Yes Carbon monoxide detector in home: Yes Firearms in home: No What type of physical activity do you participate in?: none Physical activity functional status: assisted ambulation How many days of moderate to strenuous exercise, like a brisk walk, did you do in the last 7 days: 0 Surgical History colectomy History of heart surgery History of hysterectomy Status post appendectomy Status post cholecystectomy Stent placement Total knee replacement right knee Female Reproductive History Menstrual Hx Hysterectomy: Yes Hx Tubal Ligation: No Physical Exam Physical Exam Appearance: Reports Obese Ill-appearing: Mild Pain Distress: Mild Eyes: Reports NESTOR, EOMI and Conjunctiva clear ENT: Reports Ears normal, Nose normal and Oropharynx normal Neck: Supple Respiratory: Reports Airway patent and Breath sounds clear Cardiovascular: Reports RRR, Pulses normal, No rub and No murmur GI/: Reports Soft, Nontender, No masses, Bowel sounds normal and No Organomegaly Musculoskeletal: Reports Normal strength, ROM intact, No calf tenderness and Edema (minimal lower leg) Skin: Reports Warm, Dry and Normal color Neurological: Reports Sensation intact, Motor intact, Reflexes intact, Cranial nerves intact, Alert and Oriented Psychiatric: Reports Affect appropriate and Mood appropriate Interpretation Radiology Interpretation Radiology Interpretation By: Radiologist Exam Interpreted: Portable CXR and CT Scan Re-Evaluation Re-Evaluation Time of Re-Evaluation: 16:30 Status: Improved Vital Signs Stable: Yes Pain Level: 1 Lungs: Clear Skin: Warm and Dry Neuro: Alert and Oriented X3 CV: RRR Critical Care Note Critical Care Note Total Critical Care Time (mins): 0 Course Course Hematology/Chemistry: 12/07/20 16:23 12/07/20 16:23 Orders, Labs, Meds: Lab Review 12/07/20 12/07/20 12/07/20 16:23 16:23 16:23 WBC 4.20 L RBC 3.22 L Hgb 7.4 L Hct 26.2 L MCV 81.4 MCH 23.0 L MCHC 28.2 L RDW Coeff of Kylee 16.4 H Plt Count 273 Immature Gran % (Auto) 0.2 Neut % (Auto) 67.4 Lymph % (Auto) 24.3 [place] % (Auto) 5.0 Eos % (Auto) 2.6 Baso % (Auto) 0.5 Neut # (Auto) 2.8 Lymph # (Auto) 1.0 [place] # (Auto) 0.2 L Eos # (Auto) 0.1 Baso # (Auto) 0.0 Immature Gran # (Auto) 0.0 Hypochromasia 2+ Anisocytosis 1+ Target Cells 1+ Stomatocytes 1+ PT 10.2 INR 0.96 APTT 23.8 L Sodium 137.8 Potassium 3.58 Chloride 103.7 Carbon Dioxide 24.4 Anion Gap 13.28 BUN 15.4 Creatinine 1.03 Estimated GFR (MDRD) 54.00 BUN/Creatinine Ratio 14.95 Glucose 100.4 Calcium 9.23 Total Bilirubin 0.56 AST 20.6 ALT 8.0 Alkaline Phosphatase 124.4 Troponin I < 0.012 Total Protein 7.58 Albumin 3.83 Globulin 3.75 Albumin/Globulin Ratio 1.02 Urine Color Urine Clarity Urine pH Ur Specific [place] Urine Protein Urine Glucose (UA) Urine Ketones Urine Blood Urine Nitrite Urine Bilirubin Urine Urobilinogen Ur Leukocyte Esterase Urine Microscopic WBC Ur Squamous Epith Cells Blood Type Antibody Screen Crossmatch ([facility]) 12/07/20 12/07/20 16:55 17:05 WBC RBC Hgb Hct MCV MCH MCHC RDW Coeff of Kylee Plt Count Immature Gran % (Auto) Neut % (Auto) Lymph % (Auto) [place] % (Auto) Eos % (Auto) Baso % (Auto) Neut # (Auto) Lymph # (Auto) [place] # (Auto) Eos # (Auto) Baso # (Auto) Immature Gran # (Auto) Hypochromasia Anisocytosis Target Cells Stomatocytes PT INR APTT Sodium Potassium Chloride Carbon Dioxide Anion Gap BUN Creatinine Estimated GFR (MDRD) BUN/Creatinine Ratio Glucose Calcium Total Bilirubin AST ALT Alkaline Phosphatase Troponin I Total Protein Albumin Globulin Albumin/Globulin Ratio Urine Color Yellow Urine Clarity Clear Urine pH 6.5 Ur Specific [place] 1.015 Urine Protein Negative Urine Glucose (UA) Negative Urine Ketones Negative Urine Blood Negative Urine Nitrite Negative Urine Bilirubin Negative Urine Urobilinogen 0.2 Ur Leukocyte Esterase 1+ H Urine Microscopic WBC 10-20 Ur Squamous Epith Cells 2-5 Blood Type A POSITIVE Antibody Screen Negative Crossmatch ([facility]) See Detail Orders Category Date Time Status EKG-(ED ONLY) Stat CARDIO 12/07/20 16:04 Completed EKG-(IP & OP ONLY) DAILY CARDIO 12/08/20 06:00 Ordered EKG-(IP & OP ONLY) DAILY CARDIO 12/09/20 06:00 Ordered OXYGEN Routine CARDIO 12/07/20 18:51 Active ACTIVITY .BR with BRP CARE 12/07/20 18:51 Active IP: INSERT SALINE LOCK ONCE CARE 12/07/20 18:51 Active TELEMETRY MONITORING TELE CARE 12/07/20 18:51 Active VITAL SIGNS Q8HR CARE 12/07/20 18:51 Active CARDIAC DIET DIETARY 12/07/20 Dinner Ordered ED IV/MEDIPORT/POWERPORT .ONCE EMERGENCY 12/07/20 16:04 Active CBC W/ AUTO DIFF Stat LAB 12/07/20 16:23 Completed COMPREHENSIVE METABOLIC PANEL Stat LAB 12/07/20 16:23 Completed PACKED CELLS Stat LAB 12/07/20 17:05 Results PARTIAL THROMBOPLASTIN TIME Stat LAB 12/07/20 16:23 Completed PT WITH INR Stat LAB 12/07/20 16:23 Completed RBC MORPHOLOGY Stat LAB 12/07/20 16:23 Completed TROPONIN I Stat LAB 12/07/20 16:23 Completed TYPE AND SCREEN Stat LAB 12/07/20 17:05 Results URINALYSIS C & S IF INDICATED Stat LAB 12/07/20 16:55 Completed URINE CULTURE Stat LAB 12/07/20 16:55 Received 0.9 % Sodium Chloride [Saline Flush] MEDS 12/07/20 16:04 Active 1 syr IVF PRN PRN 0.9 % Sodium Chloride [Saline Flush] MEDS 12/07/20 21:00 Active 1 syr IVF Q8HR Acetaminophen [Tylenol] MEDS 12/07/20 18:50 Active 650 mg PO Q8H PRN Amlodipine Besylate [Norvasc] MEDS 12/07/20 19:00 Active 2.5 mg PO DAILY Atropine Sulfate Inj [Atropine Sulfate Pfs] MEDS 12/07/20 18:50 Active 0.5 mg IVP ONCE PRN Clonazepam [Klonopin] MEDS 12/07/20 19:00 Active 0.5 mg PO Q8H PRN Clopidogrel Bisulfate [Plavix] MEDS 12/07/20 19:00 Active 75 mg PO DAILY Hydrocodone Bit/Acetaminophen [[place] 10-325] MEDS 12/07/20 19:00 Active 1 tab PO Q8H PRN Levothyroxine Sodium [Synthroid] MEDS 12/08/20 09:00 Active 50 mcg PO DAILY Nitroglycerin [Nitrostat] MEDS 12/07/20 18:50 Active 0.4 mg SL Q5MIN X 3 DOSES PRN Pregabalin [Lyrica] MEDS 12/07/20 19:00 Active 75 mg PO Q8H Sodium Chloride 0.9% [Sodium Chloride] 1,000 ml MEDS 12/07/20 16:04 Active IV 100 mls/hr Sodium Chloride 0.9% [Sodium Chloride] 1,000 ml MEDS 12/07/20 18:56 Active IV 75 mls/hr Spironolactone [Aldactone] MEDS 12/07/20 19:00 Ordered See Dose Instructions PO .COMPLEX Torsemide [Demadex] MEDS 12/08/20 09:00 Active 20 mg PO DAILY Trazodone HCl [Desyrel] MEDS 12/07/20 19:00 Ordered 50 mg PO QHS PRN CHEST, 1V AP ONLY Stat RADS 12/07/20 16:[address] HEAD W/O CONTRAST Stat RADS 12/07/20 16:04 Completed Medications Generic Name Dose Route Start Last Admin Trade Name Freq PRN Reason Stop Dose Admin Acetaminophen 650 mg 12/07/20 18:50 Acetaminophen 325 Mg Tablet PO Q8H PRN Headache Hydrocodone Bitart/Acetaminophen 1 tab 12/07/20 19:00 Hydrocodone Bit/Acetaminophen 10/325 Mg Tablet PO Q8H PRN Joint Pain Amlodipine Besylate 2.5 mg 12/07/20 19:00 Amlodipine Besylate 5 Mg Tablet PO DAILY ELENO Atropine Sulfate 0.5 mg 12/07/20 18:50 Atropine Sulfate Inj 1 Mg/10 Ml Disp.Syrin IVP ONCE PRN Symptomatic Bradycardia Clonazepam 0.5 mg 12/07/20 19:00 Clonazepam 0.5 Mg Tablet PO Q8H PRN Anxiety Clopidogrel Bisulfate 75 mg 12/07/20 19:00 Clopidogrel Bisulfate 75 Mg Tablet PO DAILY ELENO Sodium Chloride 1,000 mls @ 100 mls/hr 12/07/20 16:04 12/07/20 16:54 Sodium Chloride IV 12/08/20 02:03 100 mls/hr .Q10H STA Administration Sodium Chloride 1,000 mls @ 75 mls/hr 12/07/20 18:56 Sodium Chloride IV 12/08/20 08:15 .[id number] STA Levothyroxine Sodium 50 mcg 12/08/20 09:00 Levothyroxine Sodium 50 Mcg Tablet PO DAILY ELENO Nitroglycerin 0.4 mg 12/07/20 18:50 Nitroglycerin 0.4 Mg Tab.Subl SL Q5MIN X 3 DOSES PRN Chest Pain Pregabalin 75 mg 12/07/20 19:00 Pregabalin 75 Mg Capsule PO Q8H ELENO Sodium Chloride 1 syr 12/07/20 16:04 12/07/20 16:54 0.9% Sodium Chloride 10 Ml Disp.Syrin IVF 1 syr PRN PRN Administration To flush IV Sodium Chloride 1 syr 12/07/20 21:00 0.9% Sodium Chloride 10 Ml Disp.Syrin IVF Q8HR ELENO Spironolactone 0 mg 12/07/20 19:00 Spironolactone 25 Mg Tablet PO .COMPLEX ELENO Torsemide 20 mg 12/08/20 09:00 Torsemide 20 Mg Tablet PO DAILY ELENO Trazodone HCl 50 mg 12/07/20 19:00 Trazodone Hcl 50 Mg Tablet PO QHS PRN Anxiety Vital Signs: Temp Pulse Resp BP Pulse Ox 12/07/20 17:32 83 18 170/66 H 98 12/07/20 17:10 86 20 188/99 H 99 12/07/20 15:54 81 20 167/91 H 99 12/07/20 15:31 97 F L 89 18 190/116 H 98 Discharge Plan Discharge Patient Disposition: ADMITTED INPATIENT Discharge Problem: Anemia, Weakness ED Provider: CON OCONNOR Condition: Serious Physician Progress Note: []Pt was d/w Dr Karimi and admitted. See admission orders.
[2020-12-07] MEDS ORDERED: NITROSTAT SL PRN (18:50)
[2020-12-07] MEDS ORDERED: ATROPINE SULFATE PFS IVP PRN (18:50)
[2020-12-07] MEDS ORDERED: TYLENOL PO PRN (18:50)
[2020-12-07] MEDS ORDERED: ALDACTONE PO SCH (19:00)
[2020-12-07] MEDS ORDERED: LYRICA PO SCH (19:00)
[2020-12-07] MEDS: DESYREL PO SCH ×2 (21:57→22:59)
[2020-12-07 22:32] VITALS: BMI 42.3
[2020-12-07] MEDS: PLAVIX PO SCH (22:58)
[2020-12-07] MEDS: NORVASC PO SCH (22:58)
[2020-12-07] MEDS: NORCO 10-325 PO PRN (22:58)
[2020-12-08] MEDS ORDERED: LASIX IVP STA (00:28)
[2020-12-08 05:00] LABS: BASOPHILS % (AUTO) 0.2 % (0.0-3.0); EOSINOPHILS # (AUTO) 0.2 K/ul (0.0-0.7); EOSINOPHILS % (AUTO) 4.4 % (0.0-7.0); HEMATOCRIT 28.8 % (37.0-47.0); HEMOGLOBIN 9.4 g/dl (12.0-16.0); IMMATURE GRANULOCYTE % (AUTO) 0.2 % (0.0-5.0); LYMPHOCYTES # (AUTO) 1.4 K/uL (0.60-3.4); LYMPHOCYTES % (AUTO) 32.9 (10.0-50.0); MEAN CORPUSCULAR HEMOGLOBIN 24.9 pg (27.0-31.0); MEAN CORPUSCULAR HGB CONC 32.6 (31.8-35.4); MEAN CORPUSCULAR VOLUME 76.4 fl (81.0-99.0); MONOCYTES # (AUTO) 0.3 K/uL (0.4-2.0); MONOCYTES % (AUTO) 6.6 (0-10); NEUTROPHILS # (AUTO) 2.3 K/ul (2.0-6.9); NEUTROPHILS % (AUTO) 55.7 % (42.2-75.2); PLATELET COUNT 219 10^3/uL (140-440); RED BLOOD COUNT 3.77 10^6/ul (4.20-5.40)
[2020-12-08] MEDS ORDERED: LYRICA PO SCH (05:00)
[2020-12-08 05:12] LABS: ALANINE AMINOTRANSFERASE 8.1 U/L (0-35); ALBUMIN 3.53 g/dL (3.5-5.0); ALKALINE PHOSPHATASE 113.5 U/L (53-141); ASPARTATE AMINO TRANSFERASE 20.1 U/L (14-36); BILIRUBIN,TOTAL 1.01 mg/dL (0.2-1.3); BLOOD UREA NITROGEN 12.6 mg/dL (7-17); CALCIUM 8.84 mg/dL (8.4-10.2); CARBON DIOXIDE 25.8 mmol/L (22-30.0); CHLORIDE 104.2 mmol/L (98-107); CREATININE 0.93 mg/dL (0.60-1.30); GLUCOSE 91.7 mg/dL (74-106); POTASSIUM 3.22 mmol/L (3.5-5.1); SODIUM 138.5 mmol/L (134.5-145); TOTAL PROTEIN 7.06 g/dL (6.3-8.2)
[2020-12-08] MEDS: PROTONIX PO SCH ×2 (05:59→17:34)
[2020-12-08] MEDS: NORCO 10-325 PO PRN ×3 (06:29→23:59)
[2020-12-08] MEDS: NORVASC PO SCH (08:45)
[2020-12-08] MEDS: ENTRESTO 24 MG-26 MG TABLET PO SCH ×2 (08:45→21:19)
[2020-12-08] MEDS: K-DUR PO SCH ×2 (08:45→17:34)
[2020-12-08] MEDS: SYNTHROID PO SCH (08:45)
[2020-12-08] MEDS: PLAVIX PO SCH (08:46)
[2020-12-08] MEDS: LASIX IVP SCH (08:46)
[2020-12-08] MEDS ORDERED: DEMADEX PO SCH (09:00)
[2020-12-08] MEDS ORDERED: ALDACTONE PO SCH (09:00)
--- NOTE | 2020-12-08 09:03 | PCM.PROG ---
Attending Provider: ATTENDING PROVIDER: Dr. ANTONIA KARIMI This patient is seen with Nany Briseno, Nurse Practitioner. DATE OF SERVICE: 12/08/20 SUBJECTIVE: This 59 year old /WHITE F was hospitalized 12/07/20. Lying in bed resting comfortably. Hemoglobin up to 9.4. The patient states she feels better after receiving blood. She has no mary ellen bleeding. REVIEW OF SYSTEMS: CONSTITUTIONAL: Weakness. No night sweats. No fatigue, malaise, lethargy. No fever or chills. HEENT: Eyes: No visual changes. No eye pain. No eye discharge. ENT: No runny nose. No epistaxis. No sinus pain. No odynophagia. No congestion. RESPIRATORY: No cough, no congestion. No hemoptysis. No shortness of breath. CARDIOVASCULAR: No angina symptoms. No CHF symptoms. No atypical chest pain for CAD. No palpitations. No orthopnea.. GASTROINTESTINAL: No abdominal pain. No nausea or vomiting. No diarrhea or constipation. No hematemesis. No hematochezia. GENITOURINARY: No urgency. No frequency. No dysuria. No hematuria. No obstructive symptoms. No discharge. No pain. No significant abnormal bleeding. MUSCULOSKELETAL: No musculoskeletal pain; no joint swelling. NEUROLOGICAL: Awake, alert, oriented to time, place and person. No headache. No neck pain. No syncope. No seizures. No dizziness. PSYCHIATRIC: Not anxious. No depression. No suicidal thoughts. No homicidal thoughts. SKIN: No rash. No lesions. No wounds. ENDOCRINE: No unexplained weight loss. No weight gain. HEMATOLOGIC/LYMPHATIC: Anemia. No purpura. No petechiae. No prolonged or excessive bleeding. No palpable lymph nodes. PHYSICAL EXAMINATION: GENERAL: The patient is awake, alert and oriented, lying/sitting in bed in no distress. VITAL SIGNS: Temperature 97.3 F, Pulse 67, Respiratory Rate 16, BP 149/91, Pulse Ox 98% HEENT: Head normocephalic, atraumatic. Eyes: Extraocular muscles are intact. Pupils are equal, round and reactive to light and accommodation. Ears: No lesions. Nose appeared normal. Throat: No exudate or erythema. NECK: Supple. No JVD, no carotid bruit. No lymphadenopathy or thyromegaly. LUNGS: Diminished breath sounds. Clear to auscultation. Percussion note norm al. Chest symmetrical. HEART: S1, S2, no S3. No murmurs. No cyanosis or clubbing. No ascites. Pulses: Dorsalis pedis and posterior tibial pulses +1 to +2 both sides. ABDOMEN: Soft. Non-tender. Bowel sounds active. No CVA tenderness. No mass felt. EXTREMITIES: No edema. Full range of motion of all extremities, equal. NEUROLOGIC: No focal deficit. Cranial nerves II through XII are grossly intact. No headache. No double vision. SKIN: Not dry. Intact. Turgor-normal. LYMPHATIC: No palpable lymph nodes/no lymphedema. MUSCULOSKELETAL: Normal joints with no swelling. Muscle tone is normal. LAB REVIEW: 12/08/20 04:55 12/08/20 04:55 12/08/20 04:55: Sodium 138.5, Potassium 3.22 L, Chloride 104.2, Carbon Dioxide 25.8, Anion Gap 11.72, BUN 12.6, Creatinine 0.93, Estimated GFR (MDRD) 61.00, BUN/Creatinine Ratio 13.54, Glucose 91.7, Calcium 8.84, Total Bilirubin 1.01, AST 20.1, ALT 8.1, Alkaline Phosphatase 113.5, Total Protein 7.06, Albumin 3.53, Globulin 3.53, Albumin/Globulin Ratio 1.00 12/08/20 04:55: WBC 4.10 L, RBC 3.77 L, Hgb 9.4 L, Hct 28.8 L, MCV 76.4 L D, MCH 24.9 L, MCHC 32.6, RDW Coeff of Kylee 16.0 H, Plt Count 219, Immature Gran % (Auto) 0.2, Neut % (Auto) 55.7, Lymph % (Auto) 32.9, [place] % (Auto) 6.6, Eos % (Auto) 4.4, Baso % (Auto) 0.2, Neut # (Auto) 2.3, Lymph # (Auto) 1.4, [place] # (Auto) 0.3 L, Eos # (Auto) 0.2, Baso # (Auto) 0.0, Immature Gran # (Auto) 0.0 12/07/20 19:35: SARS-CoV-2 Ag (Rapid) Negative 12/07/20 17:05: Blood Type A POSITIVE, Antibody Screen Negative, Crossmatch ([facility]) See Detail 12/07/20 16:55: Urine Color Yellow, Urine Clarity Clear, Urine pH 6.5, Ur Specific [place] 1.015, Urine Protein Negative, Urine Glucose (UA) Negative, Urine Ketones Negative, Urine Blood Negative, Urine Nitrite Negative, Urine Bilirubin Negative, Urine Urobilinogen 0.2, Ur Leukocyte Esterase 1+ H, Urine Microscopic WBC 10-20, Ur Squamous Epith Cells 2-5 12/07/20 16:23: Sodium 137.8, Potassium 3.58, Chloride 103.7, Carbon Dioxide 24.4, Anion Gap 13.28, BUN 15.4, Creatinine 1.03, Estimated GFR (MDRD) 54.00, BUN/Creatinine Ratio 14.95, Glucose 100.4, Calcium 9.23, Total Bilirubin 0.56, AST 20.6, ALT 8.0, Alkaline Phosphatase 124.4, Troponin I < 0.012, Total Protein 7.58, Albumin 3.83, Globulin 3.75, Albumin/Globulin Ratio 1.02 12/07/20 16:23: PT 10.2, INR 0.96, APTT 23.8 L 12/07/20 16:23: WBC 4.20 L, RBC 3.22 L, Hgb 7.4 L, Hct 26.2 L, MCV 81.4, MCH 23.0 L, MCHC 28.2 L, RDW Coeff of Kylee 16.4 H, Plt Count 273, Immature Gran % (Auto) 0.2, Neut % (Auto) 67.4, Lymph % (Auto) 24.3, [place] % (Auto) 5.0, Eos % (Auto) 2.6, Baso % (Auto) 0.5, Neut # (Auto) 2.8, Lymph # (Auto) 1.0, [place] # (Auto) 0.2 L, Eos # (Auto) 0.1, Baso # (Auto) 0.0, Immature Gran # (Auto) 0.0, Hypochromasia 2+, Anisocytosis 1+, Target Cells 1+, Stomatocytes 1+ ASSESSMENT: Please see below. 1. Acute anemia 2. Hypokalemia 3. Generalized weakness. 4. Coronary artery disease 5. History of noncompliance with medications, lifestyle and followup. PLAN: 1. Potassium 20 mEq b.i.d. 2. Restart Entresto. 3. T4, TSH. 4. Hold Torsemide. 5. Hold Aldactone. 6. Give Lasix this morning. 7. 2D echocardiogram. Plan and coordination of the patient's care discussed in the presence of Professor Of Communication and nurse. CONDITION: Stable SCRIBED BY: IRIS MALLOY [employer] Engineer scribed while in presence of service performed by Dr. Karimi/Nany Briseno APRN on 12/08/20 ([id number])
--- NOTE | 2020-12-08 11:44 | RS.PTINEVL ---
Subjective - Patient information Date of Evaluation: 12/08/20 Date of Arrival on Unit: 12/07/20 Admitted From:: Home Diagnosis: multiple falls, anemia, ataxic gait. Usual Living Arrangement: With Spouse Living Arrangement Comments: Lives with , has a ramp to enter the home. Home Environment: House, Ramp Medical History: Cancer (colon) Medical History Comments:: anxiety, cerebellar ataxia, CAD, Chronic LBP, CKD, hypothyroid, depression, ID, Afib, LATEX ALLERGY?: No Surgical History: Knee Replacement (right), Cholecystectomy, Hysterectomy Surgical History Comments:: appendectomy, colectomy, stent in coronary, Medications: see chart Subjective Information/ Patient Comments:: pt states that she fell in the bathroom and her did not want to hurt himself helping her up. She states she had to get up on her own. pt states that she does everything at home with no help. - Level of function Prior to this admission, the patient could do the following:: Independent Selfcare, Independent ADL's, Independent Ambulation, Perform [place] Machine Operator/Cooking Current Level of Function: Partially Dependent Current Equipment Used at Home: nebulizer machine, shower chair, Pain Assessement - Location all over Description: Aching Pain Behavior: Facial Grimacing Pain Aggravating Factors: Changing Position Interventions - Objective Patient Orientation: Person, Place, Time, Situation Current Interventions: Telemetry Observation: pt with edema BLE Range of Motion - ROM Right Upper Extremity AROM: WFL's Left Upper Extremity AROM: WFL's Right Lower Extremity AROM: WFL's Left Lower Extremity AROM: WFL's Muscle Strength - Muscle Strength Right Upper Extremity Strength: Mild Weakness (grossly 4+/5) Left Upper Extremity Strength: Mild Weakness (grossly 4+/5) Right Lower Extremity Strength: Mild Weakness (hip flex 4/5, knee flex/ext 4/5, ankle 4/5) Left Lower Extremity Strength: Mild Weakness (hip flex 4/5, knee flex/ext 4/5, ankle 4/5) Sensation - Sensation Right Upper Extremity Sensation: Intact/Normal Left Upper Extremity Sensation: Intact/Normal Right Lower Extremity Sensation: Impaired Left Lower Extremity Sensation: Impaired Comments: pt reports n/t in BLE Palpation Palpation Findings: None/Normal Balance - Sitting Balance and Reactions Static Sitting Balance: Good Dynamic Sitting Balance: Fair - Standing Balance and Reactions Static Standing Balance: Fair Dynamic Standing Balance: Poor Standing Equilibrium Reactions: Delayed Left, Delayed Right Standing Protective Reactions: Delayed Left, Delayed Right Functional Mobility - Bed Mobility Rolling R/L: Independent Scooting: Independent Supine to Sit: CGA Sit to Supine: CGA - Transfers Sit to Stand: CGA Stand to Sit: CGA - Safety Awareness Safety Awareness: Fair PAVAN INDEX SCORE: n/a Ambulation - Ambulation Assistive Device Used: Rolling Walker Orthotic/Prosthetic Device: No Distance: 140ft Assistance needed with Ambulation: CGA Gait Deviations: Forward posture, Short stride Ambulation Comments: pt states she cannot use her walker at home because there isn't enough room. Factors Affecting Ambulation: Decreased Balance, Pain, Weakness, Decreased Safety, Limited Endurance Treatment time - Time with patient Length of Evaluation: 19 Total treatment time: 24 Patient Education - Education Patient Education: Home Safety, Education of Plan of Care Teaching Recipient: Patient Teaching Methods: Discussion, Demonstration Assessment - Assessment Problem List:: Decreased level of function, Requires training/education, Decreased safety/Risk of falls, Weakness, Pain limits previous level of function, Cognitive status limits abilities Rehab Potential: Good Further Therapy Indicated?: Yes Candidate for Swing Bed for Therapy Services?: feel pt would be too high level to swing. Evaluation Complexity: HISTORY: Medium, EXAM OF BODY SYSTEMS: Medium, CLINICAL PRESENTATION: Medium, CLINICAL DECISION MAKING: Medium Patient's Goal(s): Get a little stronger Short Term Goals GOAL #1: pt independent with sup to/from sit Goal to be met by: 12/10/20 GOAL #2: Transfer sit to/from stand SBA Goal to be met by: 12/10/20 GOAL #3: pt amb with rwx 150ft with SBA no LOB. Goal to be met by: 12/10/20 GOAL #4: Improve dyn stand balance fair + Goal to be met by: 12/10/20 Shear Operator Automatic Goals GOAL #1: pt independent sit to/from stand Goal to be met by: 12/12/20 GOAL #2: pt amb functional distances with rwx no LOB independently Goal to be met by: 12/12/20 GOAL #3: Improve BLE strength 4+/5 Goal to be met by: 12/12/20 Plan Plan of Care: Therapeutic EX, Therapeutic Activity, Self-Care/Home Management Frequency of Treatment: 1-2 X day, as tolerated Duration of Treatment: 3 days Anticipated Discharge Destination: Home Treatment Diagnosis (ICD 10 Codes): impaired balance R 26.81. gait ataxic R 26.0. muscle weakness R 29.6 Has the Physician been added for Co-signature?: Yes
[2020-12-08] MEDS: LYRICA PO SCH ×2 (12:12→21:19)
[2020-12-08] MEDS: KLONOPIN PO PRN (14:29)
[2020-12-08] MEDS: COREG PO SCH (17:34)
[2020-12-08] MEDS: DESYREL PO SCH (21:19)
[2020-12-09 04:56] LABS: BASOPHILS % (AUTO) 0.4 % (0.0-3.0); EOSINOPHILS # (AUTO) 0.1 K/ul (0.0-0.7); HEMATOCRIT 30.7 % (37.0-47.0); HEMOGLOBIN 9.7 g/dl (12.0-16.0); IMMATURE GRANULOCYTE % (AUTO) 0.2 % (0.0-5.0); LYMPHOCYTES # (AUTO) 1.5 K/uL (0.60-3.4); LYMPHOCYTES % (AUTO) 30.9 (10.0-50.0); MEAN CORPUSCULAR HEMOGLOBIN 24.6 pg (27.0-31.0); MEAN CORPUSCULAR HGB CONC 31.6 (31.8-35.4); MEAN CORPUSCULAR VOLUME 77.9 fl (81.0-99.0); MONOCYTES # (AUTO) 0.3 K/uL (0.4-2.0); NEUTROPHILS # (AUTO) 2.8 K/ul (2.0-6.9); NEUTROPHILS % (AUTO) 58.5 % (42.2-75.2); PLATELET COUNT 223 10^3/uL (140-440); RDW COEFFICIENT OF VARIATION 16.4 % (11.6-14.8); RED BLOOD COUNT 3.94 10^6/ul (4.20-5.40); WHITE BLOOD COUNT 4.73 K/ul (4.6-10.2)
[2020-12-09 05:11] LABS: ALANINE AMINOTRANSFERASE 5.9 U/L (0-35); ALBUMIN 3.38 g/dL (3.5-5.0); ALKALINE PHOSPHATASE 99.9 U/L (53-141); ASPARTATE AMINO TRANSFERASE 14.4 U/L (14-36); BILIRUBIN,TOTAL 0.47 mg/dL (0.2-1.3); BLOOD UREA NITROGEN 15.2 mg/dL (7-17); CALCIUM 8.3 mg/dL (8.4-10.2); CHLORIDE 102.4 mmol/L (98-107); CREATININE 1.09 mg/dL (0.60-1.30); GLUCOSE 111.3 mg/dL (74-106); POTASSIUM 3.37 mmol/L (3.5-5.1); SODIUM 138.5 mmol/L (134.5-145); TOTAL PROTEIN 6.86 g/dL (6.3-8.2)
[2020-12-09] MEDS: PROTONIX PO SCH ×3 (06:01→16:41)
[2020-12-09] MEDS: SYNTHROID PO SCH (06:01)
[2020-12-09] MEDS: LYRICA PO SCH ×3 (06:01→21:47)
[2020-12-09] MEDS: KLONOPIN PO PRN ×2 (06:10→16:49)
[2020-12-09] MEDS: K-DUR PO SCH ×3 (08:39→16:41)
[2020-12-09] MEDS: COREG PO SCH ×2 (08:39→16:41)
[2020-12-09] MEDS: LIPITOR PO SCH (08:39)
[2020-12-09] MEDS: ENTRESTO 24 MG-26 MG TABLET PO SCH ×2 (08:39→21:47)
[2020-12-09] MEDS: IMDUR PO SCH (08:39)
[2020-12-09] MEDS: NORVASC PO SCH (08:40)
[2020-12-09] MEDS: NIFEREX 150 PO SCH (08:40)
[2020-12-09] MEDS: PLAVIX PO SCH (08:40)
[2020-12-09] MEDS: NORCO 10-325 PO PRN ×2 (08:41→16:13)
[2020-12-09] MEDS ORDERED: K-DUR PO SCH (09:00)
[2020-12-09] MEDS: LASIX IVP SCH (09:29)
--- NOTE | 2020-12-09 11:25 | HP ---
DATE OF SERVICE: 12/07/20 HISTORY OF PRESENT ILLNESS: This is a 59-year-old white female who we have been following for anemia. She was instructed to go to the emergency room for hemoglobin around 7 a few days prior. We have been unable to reach her. She has been incarcerated then did not have a cell phone. PAST MEDICAL HISTORY: Chronic anemia History of falls Noncompliance with medications, diet, lifestyle and followup Coronary artery disease Hypertension Hypokalemia Anemia Dyslipidemia CHF Chronic back pain Ataxia Hypothyroidism Insomnia Anxiety COPD Chronic leg edema PAST SURGICAL HISTORY: Coronary artery disease with stent in 2017 REVIEW OF SYSTEMS: CONSTITUTIONAL: Weakness. No night sweats. No fatigue, malaise, lethargy. No fever or chills. HEENT: Eyes: No visual changes. No eye pain. No eye discharge. ENT: No runny nose. No epistaxis. No sinus pain. No sore throat. No odynophagia. No ear pain. No congestion. RESPIRATORY: No cough, no congestion. No hemoptysis. Shortness of breath. CARDIOVASCULAR: No angina symptoms. No CHF symptoms. No atypical chest pain for CAD. No palpitations. No PND. No orthopnea. GASTROINTESTINAL: No abdominal pain. No nausea or vomiting. No diarrhea or constipation. No hematemesis. No hematochezia. GENITOURINARY: No urgency. No frequency. No dysuria. No hematuria. No obstructive symptoms. No discharge. No pain. No significant abnormal bleeding. MUSCULOSKELETAL: No musculoskeletal pain. No joint swelling. No arthritis. NEUROLOGICAL: No headache. No neck pain. No syncope. No seizures. No dizziness. PSYCHIATRIC: Not anxious. No depression. No suicidal thoughts. No homicidal thoughts. SKIN: No rash. No lesions. No wounds. ENDOCRINE: No unexplained weight loss. No weight gain. HEMATOLOGIC/LYMPHATIC: Positive for anemia. No purpura. No petechiae. No prolonged or excessive bleeding. No palpable lymph nodes. PERSONAL/FAMILY/SOCIAL HISTORY: She is . No known alcohol or ilicit drug use. Chronic opiate use, was followed by Pain Management at one point. MEDICATIONS: Levothyroxine 50 mcg p.o. daily Clopidogrel 75 mg p.o. q.day Amlodipine 2.5 mg p.o. q.day Trazodone 50 mg p.o. q.h.s. p.r.n. Sacubitril 49 mg Valsartan 51 mg one tab p.o. b.i.d. Hydrocodone 10 mg Acetaminophen 325 mg one tab p.o. q.8h. p.r.n. Spironolactone 25 mg see Rx instructions Clonazepam 0.5 mg p.o. q.8h p.r.n. Pregabalin 75 mg p.o. q.8h p.r.n. Torsemide 40 mg p.o. daily Atorvastatin (Lipitor) 40 mg p.o. daily Polysaccharide Iron Complex (Niferex-150) 150 mg p.o. daily Carvedilol (Coreg) 6.25 mg p.o. b.i.d. with meal Pantoprazole (Protonix) 40 mg p.o. q.d a.c. Isosorbide Mononitrate (Imdur) 30 mg p.o. daily ALLERGIES: PENICILLINS, PROTON PUMP INHIBITORS, MORPHINE, LACTOSE, GABAPENTIN, EGG, ALL CILLINS, STEROIDS PHYSICAL EXAMINATION: VITAL SIGNS: Temperature 97, heart rate 89, respirations 18, blood pressure 190/116, pulse ox 98%. HEENT: The patient is pale. Head normocephalic, atraumatic. Eyes: Extraocular muscles are intact. Pupils are equal, round and reactive to light and accommodation. Ears: No lesions. Nose appeared normal. Throat: No exudate or erythema. NECK: Supple. No JVD, no carotid bruit. No lymphadenopathy or thyromegaly. LUNGS: Diminished breath sounds. Clear to auscultation. Percussion note normal. Chest symmetrical. HEART: S1, S2, no S3. No murmur. No cyanosis or clubbing. No ascites. Pulses: Dorsalis pedis and posterior tibial pulses +1 to +2 bilaterally. ABDOMEN: Soft. Nontender. Bowel sounds active. No CVA tenderness. No mass felt. EXTREMITIES: Trace leg edema. Full range of motion of all extremities, equal. NEUROLOGIC: No focal deficit. Cranial nerves II through XII are grossly intact. No headache, no double vision or headache. SKIN: Not dry. Intact. Turgor - normal. LYMPHATIC: No palpable lymph nodes/no lymphedema. MUSCULOSKELETAL: Normal joints with no swelling. Muscle tone is normal. LABS: Hemoglobin 7.4, hematocrit 26.2, platelets 273, white count 4.2. Sodium 137, potassium 3.5, BUN 15, creatinine 1.03, glucose 100, INR 0.96, troponin less than 0.02. Urine shows 1+ leuks. Chest x-ray showed mild vascular congestion. ASSESSMENT: 1. Anemia 2. Generalized weakness 3. Acute on chronic CHF 4. Coronary artery disease 5. Hypertension 6. Noncompliance with medications, lifestyle, followup. PLAN: 1. We will admit. 2. Routine telemetry orders. 3. Type and cross 2 units of packed red blood cells. 4. Give IV Lasix 20 mg in between each unit with a repeat H & H to follow the infusion. 5. Urine for culture. 6. CBC, CMP daily. 7. Continue all home medications. 8. Regular diet. 9. Keep legs elevated. 10. Oxygen at 1 to 2L as needed. 11. Stool for occult blood. 12. Will follow closely. TIME SPENT: More than 70 minutes. MTDD
[2020-12-09] MEDS: CIPRO PO SCH ×2 (14:14→21:47)
[2020-12-09] MEDS: DESYREL PO SCH (21:47)
[2020-12-10] MEDS: NORCO 10-325 PO PRN ×3 (04:31→20:48)
[2020-12-10] MEDS: KLONOPIN PO PRN ×3 (04:31→20:48)
[2020-12-10] MEDS: CIPRO PO SCH ×2 (06:07→20:49)
[2020-12-10] MEDS: LYRICA PO SCH ×3 (06:08→20:48)
[2020-12-10] MEDS: SYNTHROID PO SCH (06:08)
[2020-12-10] MEDS: PROTONIX PO SCH ×3 (06:08→16:31)
[2020-12-10 07:11] LABS: BASOPHILS % (AUTO) 0.2 % (0.0-3.0); EOSINOPHILS # (AUTO) 0.2 K/ul (0.0-0.7); HEMOGLOBIN 9.9 g/dl (12.0-16.0); IMMATURE GRANULOCYTE % (AUTO) 0.3 % (0.0-5.0); LYMPHOCYTES # (AUTO) 1.6 K/uL (0.60-3.4); LYMPHOCYTES % (AUTO) 26.5 (10.0-50.0); MEAN CORPUSCULAR HEMOGLOBIN 24.2 pg (27.0-31.0); MEAN CORPUSCULAR VOLUME 80.7 fl (81.0-99.0); MONOCYTES # (AUTO) 0.4 K/uL (0.4-2.0); MONOCYTES % (AUTO) 5.8 (0-10); NEUTROPHILS # (AUTO) 3.9 K/ul (2.0-6.9); NEUTROPHILS % (AUTO) 64.2 % (42.2-75.2); PLATELET COUNT 257 10^3/uL (140-440); RDW COEFFICIENT OF VARIATION 17.1 % (11.6-14.8); RED BLOOD COUNT 4.09 10^6/ul (4.20-5.40); WHITE BLOOD COUNT 6.03 K/ul (4.6-10.2)
[2020-12-10 07:24] LABS: ALANINE AMINOTRANSFERASE 6.7 U/L (0-35); ALBUMIN 3.58 g/dL (3.5-5.0); ALKALINE PHOSPHATASE 98.3 U/L (53-141); ASPARTATE AMINO TRANSFERASE 13.9 U/L (14-36); BILIRUBIN,TOTAL 0.37 mg/dL (0.2-1.3); BLOOD UREA NITROGEN 19.2 mg/dL (7-17); CALCIUM 8.68 mg/dL (8.4-10.2); CARBON DIOXIDE 28.4 mmol/L (22-30.0); CHLORIDE 102.2 mmol/L (98-107); CREATININE 1.35 mg/dL (0.60-1.30); GLUCOSE 108.2 mg/dL (74-106); POTASSIUM 3.74 mmol/L (3.5-5.1); SODIUM 139.9 mmol/L (134.5-145); TOTAL PROTEIN 6.82 g/dL (6.3-8.2)
[2020-12-10] MEDS ORDERED: LASIX IVP SCH (07:30)
[2020-12-10] MEDS: COREG PO SCH ×2 (09:18→16:31)
[2020-12-10] MEDS: PLAVIX PO SCH (09:18)
[2020-12-10] MEDS: LIPITOR PO SCH (09:18)
[2020-12-10] MEDS: ENTRESTO 24 MG-26 MG TABLET PO SCH ×2 (09:18→20:48)
[2020-12-10] MEDS: K-DUR PO SCH ×3 (09:18→16:31)
[2020-12-10] MEDS: NIFEREX 150 PO SCH (09:19)
[2020-12-10] MEDS: IMDUR PO SCH (09:19)
[2020-12-10] MEDS: LASIX TAB PO SCH (09:25)
--- NOTE | 2020-12-10 10:25 | PCM.PROG ---
Attending Provider: ATTENDING PROVIDER: Dr. ANTONIA KARIMI This patient is seen with Nany Briseno, Nurse Practitioner. DATE OF SERVICE: 12/10/20 SUBJECTIVE: This 60 year old /WHITE F was hospitalized 12/07/20. The patient is resting comfortably in bed. She is complaining of right leg pain. She has x- rays scheduled today. Hemoglobin is stable. Still have not obtained stool for blood. Shortness of breath resolved, color has improved. REVIEW OF SYSTEMS: CONSTITUTIONAL: Weakness. No night sweats. No fatigue, malaise, lethargy. No fever or chills. HEENT: Eyes: No visual changes. No eye pain. No eye discharge. ENT: No runny nose. No epistaxis. No sinus pain. No odynophagia. No congestion. RESPIRATORY: No cough, no congestion. No hemoptysis. No shortness of breath. CARDIOVASCULAR: No angina symptoms. No CHF symptoms. No atypical chest pain for CAD. No palpitations. No orthopnea.. GASTROINTESTINAL: No abdominal pain. No nausea or vomiting. No diarrhea or cons tipation. No hematemesis. No hematochezia. GENITOURINARY: No urgency. No frequency. No dysuria. No hematuria. No obstructive symptoms. No discharge. No pain. No significant abnormal bleeding. MUSCULOSKELETAL: No musculoskeletal pain; no joint swelling. NEUROLOGICAL: Awake, alert, oriented to time, place and person. No headache. No neck pain. No syncope. No seizures. No dizziness. PSYCHIATRIC: Not anxious. No depression. No suicidal thoughts. No homicidal thoughts. SKIN: No rash. No lesions. No wounds. ENDOCRINE: No unexplained weight loss. No weight gain. HEMATOLOGIC/LYMPHATIC: Anemia. No purpura. No petechiae. No prolonged or excessive bleeding. No palpable lymph nodes. PHYSICAL EXAMINATION: GENERAL: The patient is awake, alert and oriented, lying/sitting in bed in no distress. VITAL SIGNS: Temperature 98.2 F, Pulse 51, Respiratory Rate 18, BP 107/63, Pul se Ox 97% HEENT: Head normocephalic, atraumatic. Eyes: Extraocular muscles are intact. Pupils are equal, round and reactive to light and accommodation. Ears: No lesions. Nose appeared normal. Throat: No exudate or erythema. NECK: Supple. No JVD, no carotid bruit. No lymphadenopathy or thyromegaly. LUNGS: Diminished breath sounds. Clear to auscultation. Percussion note normal. Chest symmetrical. HEART: S1, S2, no S3. No murmurs. No cyanosis or clubbing. No ascites. Pulses: Dorsalis pedis and posterior tibial pulses +1 to +2 both sides. ABDOMEN: Soft. Non-tender. Bowel sounds active. No CVA tenderness. No mass felt. EXTREMITIES: No edema. Full range of motion of all extremities, equal. NEUROLOGIC: No focal deficit. Cranial nerves II through XII are grossly intact. No headache. No double vision. SKIN: Not dry. Intact. Turgor-normal. LYMPHATIC: No palpable lymph nodes/no lymphedema. MUSCULOSKELETAL: Normal joints with no swelling. Muscle tone is normal. LAB REVIEW: 12/10/20 07:07 12/10/20 07:07 12/10/20 07:07: Sodium 139.9, Potassium 3.74, Chloride 102.2, Carbon Dioxide 28.4, Anion Gap 13.04, BUN 19.2 H, Creatinine 1.35 H, Estimated GFR (MDRD) 40.00, BUN/Creatinine Ratio 14.22, Glucose 108.2 H, Calcium 8.68, Total Bilirubin 0.37, AST 13.9 L, ALT 6.7, Alkaline Phosphatase 98.3, Total Protein 6.82, Albumin 3.58, Globulin 3.24, Albumin/Globulin Ratio 1.10 12/10/20 07:07: WBC 6.03, RBC 4.09 L, Hgb 9.9 L, Hct 33.0 L, MCV 80.7 L, MCH 24.2 L, MCHC 30.0 L, RDW Coeff of Kylee 17.1 H, Plt Count 257, Immature Gran % (Auto) 0.3, Neut % (Auto) 64.2, Lymph % (Auto) 26.5, [place] % (Auto) 5.8, Eos % (Auto) 3.0, Baso % (Auto) 0.2, Neut # (Auto) 3.9, Lymph # (Auto) 1.6, [place] # (Auto) 0.4, Eos # (Auto) 0.2, Baso # (Auto) 0.0, Immature Gran # (Auto) 0.0 ASSESSMENT: Please see below. 1. Anemia - improved. 2. Generalized weakness. 3. Right leg pain. 4. Noncompliance with medications, followup and lifestyle. PLAN: 1. D/C IV Lasix. 2. Lasix 40 mg p.o. daily. 3. Right hip x-ray and tib/fib. Plan and coordination of the patient's care discussed in the presence of Viscose Department Worker and nurse. CONDITION: Stable SCRIBED BY: IRIS MALLOY State Manager scribed while in presence of service performed by Dr. Karimi/Nany Briseno APRN on 12/10/20 ([id number])
--- NOTE | 2020-12-10 11:33 | PN ---
DATE OF SERVICE: 12/07/2020 SUBJECTIVE: The patient was hospitalized because severe anemia with hgb of 7.4. The patient has increasing shortness of breath and evidence of possibility of early CHF on chest x-ray. The patient is going to be given 20mg IV Lasix now. Type and crossmatch two units and we are going to transfuse her as soon as possible because she has symptomatic anemia requiring blood transfusion. The patient's shortness of breath like this for past couple of weeks. Trying to get in touch with her for 4 days. The police department has been trying to contact her. Her had turned her phone down. She has been a very difficult person to take care. He was again explained about the findings that if she doesn't answer her phone it is going to be very difficult to take care of her when the labs are drawn and she needs to have the report known to her. She is noncompliant of lifestyle, medications, follow-ups and recommendations. She had this problem of anemia because for which she was worked up and was found to have intramucosal which was erythematous but other than that on endoscopy examination nothing else was found. She had declined colonoscopy. She declines any further GI workup. The condition is stable. We will do a CT scan of the abdomen and pelvis. CT of the head was done because of her feeling of dizziness likely related to anemia was negative. TIME SPENT: More than 30 minutes. Plan and coordination of the patient's care discussed in the presence of nurse. FORREST
--- NOTE | 2020-12-10 11:47 | PN ---
DATE OF SERVICE: 12/09/20 SUBJECTIVE: 60-year-old white female hospitalized with severe anemia, symptomatic with shortness of breath and dizziness and frequent falls. The patient's anemia was treated with blood transfusions, two units, now hemoglobin is 9.0 with hematocrit of 30.7. The patient has no evidence of active GI bleed. Her appetite and strength have improved according to her and she is feeling somewhat better. The patient has a lot of marital problems. Again, the patient was advised to answer her phone otherwise it would be impossible to communicate. I explained to her about it. For good patient care, the patient needs to answer her phone. PHYSICAL EXAMINATION: VITAL SIGNS: Vitals: Temperature 97.4, pulse 45, respiratory rate 16, blood pressure 102/63. Pulse ox 98%. HEENT: Head normocephalic, atraumatic. Eyes: Extraocular muscles are intact. Pupils are equal, round and reactive to light and accommodation. Ears: No lesions. Nose appeared normal. Throat: No exudate or erythema. NECK: Supple. No JVD, no carotid bruit. No lymphadenopathy or thyromegaly. LUNGS: Decreased breath sounds but clear to auscultation. Percussion note normal. Chest symmetrical. HEART: S1, S2, no S3. No murmurs. No cyanosis or clubbing. No ascites. Pulses: Dorsalis pedis and posterior tibial pulses +1 to +2 bilaterally. ABDOMEN: Soft. Nontender. Bowel sounds active. No CVA tenderness. No mass felt. EXTREMITIES: No edema. Full range of motion of all extremities, equal. NEUROLOGIC: No focal deficit. Cranial nerves II through XII are grossly intact. No headache. No double vision. SKIN: Not dry. Intact. Turgor - normal. LYMPHATIC: No palpable lymph nodes/no lymphedema. MUSCULOSKELETAL: Normal joints with no swelling. Muscle tone is normal. LABS: Hemoglobin 9.7, hematocrit 30, WBC 4,700, normal differential. Creatinine 1, BUN 15, potassium 3.3. ASSESSMENT/PLAN: 1. Severe anemia requiring blood transfusion. Cause of anemia likely GI blood loss. The patient is refusing to undergo any GI consultation or GI workup. The patient is refusing to have CT scan of the abdomen or pelvis, refusing to undergo colonoscopy. 2. Severe coronary artery disease. 3. Ischemic cardiomyopathy. 4. Hypokalemia, need to give potassium supplements, K-Dur will be 20 mEq twice a day. 5. Continue to monitor the patient's CBC, CMP. 6. Continue telemetry. 7. Continue all the rest of the medication. 8. The patient's echo showed LVH with hypokinetic septal wall with ejection fraction 50 to 55% which is quite a lot of improvement from the one before. 9. The patient is on Entresto, Carvedilol, Amlodipine, Isosorbide dinitrate and Trazodone. Will continue the rest of the medications as before. We may have to consider to discontinue Amlodipine because of borderline low blood pressure. ADDENDUM: The patient's UA showed enterococcus organism which was sensitive to Cipro. We are going to put her on Cipro 500 b.i.d. daily. The patient's EKG done this morning showed sinus rhythm with intermittent complete heart block with wide QRS rhythm with rate of 44/min. The patient's telemetry most of the time has shown bundle branch block with rate of 60 to 65/min. Nobody has noted this for 3rd degree block except for it was documented on EKG. The patient has rate related bundle branch block. The patient has history of rate related bundle branch block with ST-T wave changes like what it showed in her EKG. The patient was explained about this finding and explained that this may require referral. Will transfer if this rate persists. She flatly declined to go to any other hospital. She says she trusts this hospital and me and wants to stay with me. She had this problem once before at one of the [facility]. I explained to her about complete heart block and wide QRS rhythm and what it means. She wants no part of it. She said "I feel fine and need to go home, I have a lot of things to do". The patient is going through marital problems and not willing to have any further investigation done at the present time about her rhythm. Continued to monitor the patient four times during the day today, the rhythms were checked and she has been in sinus rhythm with bundle branch block with rate of 60 to 65/min. The patient does not have any symptoms of CHF or coronary insufficiency. She declined referral to count team member or senior marketing data analyst so that she could be seen in the office. TIME SPENT: More than 30 minutes. Plan and coordination of the patient's care discussed in the presence of nurse. TIME SPENT: More than 30 minutes. Plan and coordination of the patient's care discussed in the presence of nurse. FORREST
--- NOTE | 2020-12-10 13:24 | PN ---
DATE OF SERVICE: 12/08/20 SUBJECTIVE: The patient was seen and examined today with the nurse practitioner. The patient's cardiovascular status is stable with no symptoms of CHF or coronary insufficiency. Her hemoglobin is 9 with hematocrit of 28 and two units of packed red cells. No evidence of any GI blood loss noted. Again, the patient was explained that we were trying to get in touch with her on Monday and unable to do it. According to her, the had set the phone down and they are having some marital problems. In any case, I told her that if she wants to be taken care of properly she has to be accessible. She is intelligent enough to understand this. I told her that we also contacted the Physical Chemistry Teacher's Department afterward and we were not able to look at her. At last we got ahold of her on Monday and got her into the hospital. She declines colonoscopy, EGD or GI referral, hematological evaluation at the present time. TIME SPENT: More than 30 minutes. Plan and coordination of the patient's care discussed in the presence of nurse. FORREST
--- NOTE | 2020-12-10 13:28 | DI ---
EXAM: Radiographs, right hip HISTORY: Right hip pain. COMPARISON: Pelvic CT 05/01/2020. TECHNIQUE: Two views. FINDINGS: Bone mineralization is normal. Orthopedic hardware in the distal femur is incompletely im aged. There is no fracture or dislocation. The joint spaces are maintained although mild marginal o steophyte formation and subchondral cystic change present. No erosions are detected. No focal soft tissue abnormality is seen. IMPRESSION: Mild right hip osteoarthritis.
--- NOTE | 2020-12-10 13:29 | DI ---
EXAM: Radiographs, right tibia and fibula HISTORY: Right leg pain. COMPARISON: Right knee radiograph 08/28/2019. TECHNIQUE: Two views. FINDINGS: Right total knee arthroplasty hardware components appear intact and visualized portions. The femoral portion is incompletely included. No acute fracture or dislocation identified. Joint sp aces maintained. Moderate calcaneal spurs present at the Achilles tendon insertion and plantar apone urosis. Diffuse subcutaneous edema seen over the lower leg with clips in the medial soft tissues. IMPRESSION: 1. No acute abnormality of the right tibia or fibula. 2. Calcaneal spurs. 3. Subcutaneous edema.
[2020-12-10] MEDS: DESYREL PO SCH (20:48)
[2020-12-11] MEDS: NORCO 10-325 PO PRN ×2 (05:05→13:08)
[2020-12-11] MEDS: SYNTHROID PO SCH (05:31)
[2020-12-11] MEDS: LASIX TAB PO SCH (05:31)
[2020-12-11] MEDS: KLONOPIN PO PRN ×2 (05:31→13:08)
[2020-12-11] MEDS: PROTONIX PO SCH (05:31)
[2020-12-11] MEDS: CIPRO PO SCH (05:31)
[2020-12-11] MEDS: LYRICA PO SCH ×2 (05:31→13:08)
[2020-12-11 05:36] LABS: BASOPHILS % (AUTO) 0.6 % (0.0-3.0); EOSINOPHILS # (AUTO) 0.2 K/ul (0.0-0.7); EOSINOPHILS % (AUTO) 4.4 % (0.0-7.0); HEMOGLOBIN 9.4 g/dl (12.0-16.0); IMMATURE GRANULOCYTE % (AUTO) 0.2 % (0.0-5.0); LYMPHOCYTES # (AUTO) 1.6 K/uL (0.60-3.4); LYMPHOCYTES % (AUTO) 33.6 (10.0-50.0); MEAN CORPUSCULAR HEMOGLOBIN 24.7 pg (27.0-31.0); MEAN CORPUSCULAR HGB CONC 30.3 (31.8-35.4); MEAN CORPUSCULAR VOLUME 81.6 fl (81.0-99.0); MONOCYTES # (AUTO) 0.3 K/uL (0.4-2.0); MONOCYTES % (AUTO) 6.1 (0-10); NEUTROPHILS # (AUTO) 2.6 K/ul (2.0-6.9); NEUTROPHILS % (AUTO) 55.1 % (42.2-75.2); PLATELET COUNT 246 10^3/uL (140-440); RDW COEFFICIENT OF VARIATION 17.4 % (11.6-14.8); WHITE BLOOD COUNT 4.73 K/ul (4.6-10.2)
[2020-12-11 05:54] LABS: ALANINE AMINOTRANSFERASE < 4.0 U/L (0-35); ALBUMIN 3.27 g/dL (3.5-5.0); ALKALINE PHOSPHATASE 81.7 U/L (53-141); ASPARTATE AMINO TRANSFERASE 22.9 U/L (14-36); BILIRUBIN,TOTAL 0.42 mg/dL (0.2-1.3); BLOOD UREA NITROGEN 22.3 mg/dL (7-17); CALCIUM 8.54 mg/dL (8.4-10.2); CARBON DIOXIDE 23.6 mmol/L (22-30.0); CHLORIDE 103.6 mmol/L (98-107); CREATININE 1.39 mg/dL (0.60-1.30); GLUCOSE 100.2 mg/dL (74-106); POTASSIUM 4.55 mmol/L (3.5-5.1); SODIUM 135.2 mmol/L (134.5-145)
[2020-12-11] MEDS: DECADRON IM ONE ×2 (09:30→12:38)
[2020-12-11] MEDS: PLAVIX PO SCH (09:31)
[2020-12-11] MEDS: K-DUR PO SCH ×2 (09:31→13:08)
[2020-12-11] MEDS: NIFEREX 150 PO SCH (09:31)
[2020-12-11] MEDS: LIPITOR PO SCH (09:31)
[2020-12-11] MEDS: IMDUR PO SCH (09:31)
[2020-12-11] MEDS: COREG PO SCH (09:31)
[2020-12-11] MEDS: ENTRESTO 24 MG-26 MG TABLET PO SCH (09:31)
--- NOTE | 2020-12-11 10:17 | PCM.PROG ---
Attending Provider: ATTENDING PROVIDER: Dr. ANTONIA JACOBS This patient is seen with Nany Briseno, Nurse Practitioner. DATE OF SERVICE: 12/11/20 SUBJECTIVE: This 60 year old /WHITE F was hospitalized 12/07/20. The patient had a bad night last night. Complaining of right hip pain. X-ray yesterday showed arthritis. Hgb is stable at 9.4. Would like to be discharged today. She is concerned she has a blood clot. REVIEW OF SYSTEMS: CONSTITUTIONAL: No night sweats. No fatigue, malaise, lethargy. No fever or chills. Weakness. HEENT: Eyes: No visual changes. No eye pain. No eye discharge. ENT: No runny nose. No epistaxis. No sinus pain. No odynophagia. No congestion. RESPIRATORY: No cough, no congestion. No hemoptysis. No shortness of breath. CARDIOVASCULAR: No angina symptoms. No CHF symptoms. No atypical chest pain for CAD. No palpitations. No orthopnea.. GASTROINTESTINAL: No abdominal pain. No nausea or vomiting. No diarrhea or constipation. No hematemesis. No hematochezia. GENITOURINARY: No urgency. No frequency. No dysuria. No hematuria. No obstructive symptoms. No discharge. No pain. No significant abnormal bleeding. MUSCULOSKELETAL: No musculoskeletal pain; no joint swelling. Right hip pain. NEUROLOGICAL: Awake, alert, oriented to time, place and person. No headache. No neck pain. No syncope. No seizures. No dizziness. PSYCHIATRIC: Not anxious. No depression. No suicidal thoughts. No homicidal thoughts. SKIN: No rash. No lesions. No wounds. ENDOCRINE: No unexplained weight loss. No weight gain. HEMATOLOGIC/LYMPHATIC: Anemia. No purpura. No petechiae. No prolonged or excessive bleeding. No palpable lymph nodes. PHYSICAL EXAMINATION: GENERAL: The patient is awake, alert and oriented, lying in bed in no distress. VITAL SIGNS: Temperature 97.5 F, Pulse 70, Respiratory Rate 18, BP 104/66, Pulse Ox 100% HEENT: Head normocephalic, atraumatic. Eyes: Extraocular muscles are intact. Pupils are equal, round and reactive to light and accommodation. Ears: No lesions. Nose appeared normal. Throat: No exudate or erythema. NECK: Supple. No JVD, no carotid bruit. No lymphadenopathy or thyromegaly. LUNGS: Diminished breath sounds. Clear to auscultation. Percussion note normal. Chest symmetrical. HEART: S1, S2, no S3. No murmurs. No cyanosis or clubbing. No ascites. Pulses: Dorsalis pedis and posterior tibial pulses +1 to +2 both sides. ABDOMEN: Soft. Non-tender. Bowel sounds active. No CVA tenderness. No mass felt. EXTREMITIES: Trace bilateral leg edema. Full range of motion of all extremi ties, equal. NEUROLOGIC: No focal deficit. Cranial nerves II through XII are grossly intact. No headache. No double vision. SKIN: Not dry. Intact. Turgor-normal. LYMPHATIC: No palpable lymph nodes/no lymphedema. MUSCULOSKELETAL: Normal joints with no swelling. Muscle tone is normal. LAB REVIEW: 12/11/20 04:48 12/11/20 04:48 12/11/20 04:48: Sodium 135.2, Potassium 4.55, Chloride 103.6, Carbon Dioxide 23.6, Anion Gap 12.55, BUN 22.3 H, Creatinine 1.39 H, Estimated GFR (MDRD) 38.00, BUN/Creatinine Ratio 16.04, Glucose 100.2, Calcium 8.54, Total Bilirubin 0.42, AST 22.9, ALT < 4.0, Alkaline Phosphatase 81.7, Total Protein 6.50, Albumin 3.27 L, Globulin 3.23, Albumin/Globulin Ratio 1.01 12/11/20 04:48: WBC 4.73, RBC 3.80 L, Hgb 9.4 L, Hct 31.0 L, MCV 81.6, MCH 24.7 L, MCHC 30.3 L, RDW Coeff of Kylee 17.4 H, Plt Count 246, Immature Gran % (Auto) 0.2, Neut % (Auto) 55.1, Lymph % (Auto) 33.6, Hooker % (Auto) 6.1, Eos % (Auto) 4.4, Baso % (Auto) 0.6, Neut # (Auto) 2.6, Lymph # (Auto) 1.6, Hooker # (Auto) 0.3 L, Eos # (Auto) 0.2, Baso # (Auto) 0.0, Immature Gran # (Auto) 0.0 ASSESSMENT: Please see below. 1. Anemia, improved 2. Generalized weakness 3. Intermittent complete, intermittent Mobitz II heart block 4. CKD 5. Right hip osteoarthritis 6. UTI PLAN: 1. Continue PO Cipro 2. Venous ultrasound, bilateral 3. 1cc Decadron IM this morning 4. Followup with [facility] 5. The patient has an appointment with Dr. Rodriguez in February 09. Possible discharge home today. Plan and coordination of the patient's care discussed in the presence of Research Biologist and nurse. SCRIBED BY: Kristie NICK scribed while in presence of service performed by Dr. Jacobs/Nany Briseno APRN on 12/11/20 ([id number])
--- NOTE | 2020-12-11 13:41 | US ---
EXAM: Bilateral lower extremity venous doppler. HISTORY: Bilateral leg pain and tenderness. COMPARISON: 09/06/2018. TECHNIQUE: A duplex Doppler study was performed consisting of integrated two dimensional (2D) real-t joe imaging color flow Doppler and Doppler spectral analysis utilizing linear array probes. FINDINGS: There is normal flow, venous waveforms, compressibility and augmentation of flow within th e right and left common femoral, greater saphenous, profunda, femoral, popliteal, posterior tibial, a nterior tibial and peroneal veins. IMPRESSION: No evidence for right or left lower extremity deep vein thrombosis at the levels examined.
[2020-12-11 14:22] VITALS: BP 108/66; TEMP 98
--- NOTE | 2020-12-14 13:59 | DS ---
DATE OF SERVICE: 12/11/2020 FINAL DIAGNOSIS: 1. Symptomatic anemia, transfusion two units packed cells 2. Acute on chronic CHF 3. UTI, Staph epidermis 4. Cardiac arrhythmia, intermittent complete heart block and 2nd degree AV block, Mobitz II 5. Generalized weakness 6. CAD 7. Hypertension 8. Chronic kidney disease 9. COPD 10.History of falls 11.Non-compliance with medications, lifestyle and follow-up 12.Dyslipidemia 13.Chronic back pain 14.Osteoarthritis, right hip 15.Ataxia 16.Hypothyroidism 17.Anxiety 18.Chronic leg edema 19.ME 20.Colon cancer 21.Right hemicolectomy 22.Appendectomy 23.Cholecystectomy 24.CABG 25.Hearth cath with stent placement 26.TKR, right VITALS: Temperature 97.5, pulse 70, respiratory rate 18, blood pressure 104/66 and pulse ox 100%. DISCHARGE INSTRUCTIONS: Discharge home. An appointment is scheduled with Dr. Jacobs/Nany Briseno APRN on December 21 at 11:15am. An appointment is scheduled with DR. Michael Zuniga on February 22 at 1pm. Please arrive at least 15 minutes early for appointment. You have been placed on a "wait list" for an earlier appointment if cancellations occur. Address: [facility] in [address] PHONE NUMBER: [phone]. A referral has been sent to Dr. Sethi, spin table operator in [place], [place] due to anemia. You will be called by his office with an appointment after you records are reviewed. CODE STATUS: Do not resuscitate. MEDICATIONS AT DISCHARGE: Hydrocodone Bitart/Actaminophen 1 tablet PO Q 8 hours PRn Atorvastatin Calcium 40mg PO Daily scheduled Carvedilol 6.25mg PO BID Ciprofloxacin 500mg PO BID Clonazepam 0.5mg PO Q 8 ours PRN Clopidogrel Bisulfate 75mg PO daily Torsemide 40mg PO QDAC scheduled Isosorbide Mononitrate 30mg PO daily Levothyroxine Sodium 50mcg PO QDAC Pantoprazole 40mg PO BID Polysaccharide Iron Complex 150mg PO daily Pregabalin 75mg PO Q 8 hours Sacubitril 2 each PO BID Trazodone HCL 50mg PO bedtime Aldactone 25mg PO daily scheduled ALLERGIES: Proton Pump inhibitors Egg Gabapentin Lactose Morphine Penicillins All cillins Steroids NEW PRESCRIPTIONS: Cipro 500mg PO BID for 7 days Torsemide 40mg daily Aldactone 25mg daily DISCONTINUED MEDICATIONS: Amlodipine 2.5mg PO daily DIET INSTRUCTIONS: Heart Healthy ACTIVITY: Gradually resume as tolerated SMOKING: N/A DISEASE SPECIFIC EDUCATION: Medications Anemia Appointment and referral Activity HOSPITAL COURSE: 60 year old white female was hospitalized because of severe symptomatic anemia with hgb of 7.2, hct of 22. The patient had generalized weakness and was not able to walk. Usually she walks with the walker. The patient was given two units of packed red cells. Condition improved. there was no evidence of active GI bleed. During the stay in the hospital the patient was noted to have urinary tract infection, organisms were sensitive to Cipro. She was started on Cipro. She continued until she finished this, a total of 7 days. She was more or less practically asymptomatic from UTI. Also noted was 3rd degree AV block with wide QRS complex rhythm 44. She was practically asymptomatic this was intermittent, noted on Holter Monitor. In between also was seen was 2nd AV block Mobitz type II. No pauses of greater than two seconds were noted. The patient has left bundle branch block type of pattern. Echo showed LV ejection fraction of 50%. Hypokinetic septum with enlarged LA cavity. The patient has chronic anemia and chronic kidney disease with ischemic cardiomyopathy. She has been followed by [facility] Mill Supervisor at [place]. She is morbidly obese with sedentary lifestyle, non- compliant of lifestyle and medications and followup. The patient has an appointment with Dr. Sethi, GI specialist to evaluate possible blood loss from her GI tract. She has been seen by him before. The patient will have appointment with Dr. Olmos in [place] who is an mold stripper for her rhythm problems. The patient during the stay in the hospital was advised to have possible transfer to either [place] or [place] because of her rhythm problem to which she declined. After the second day of the hospital stay she insisted on going home indicated that she has been going through a lot of stress and has marital problems. She had no suicidal or homicidal ideas. She was not really depressed. The patient is intelligent and was oriented to time, place and person and understands the seriousness of her rhythm problem. TIME SPENT: More than 60 minutes. FORREST
--- NOTE | 2020-12-14 14:00 | PN ---
12/07/2020: Level 5 12/08/2020: Intermediate 12/09/2020: Intermediate 12/10/2020: Intermediate 12/11/2020: D as in discharge MTDD
--- NOTE | 2020-12-14 14:53 | PN ---
DATE OF SERVICE: 12/11/2020 SUBJECTIVE: The patient was seen and examined with the Nurse Practitioner. The patient is up and about, unable to walk with the walker. The was in the room when I examined the patient later on was complaining that the patient is very sedentary and sits at home. Both of them were fighting. Not getting some and has some marital problems. I explained to the patient that she needs to followup with her consultants both of them in the [facility] and artificial stone applicator and senior consultant. I explained about complete heart block, bradycardia and symptoms that could arise from it and the seriousness. The symptoms she has is usual. The patient says that she is not sure whether she will be able to make it to the appointment or not. The patient is highly noncompliant. I strongly advised her to answer her phone, she may get a phone call with a change of appointment or for anything. As far as her health is concerned she needs to answer the phone calls. On the day of discharge the patient has no symptoms of CHF or coronary insufficiency. No blackouts and feeling better. She had two units of packed red cells, her hgb is 9.4 with hct of 31, stable. No evidence of active GI bleed. TIME SPENT: More than 30 minutes. Plan and coordination of the patient's care discussed in the presence of nurse. FORREST
--- NOTE | 2020-12-14 14:58 | PN ---
DATE OF SERVICE: 12/10/2020 SUBJECTIVE: The patient was seen and examined today. The patient's EKG this morning shows left bundle branch block type of pattern with Mobitz type II second degree block. The patient again was explained about this findings. That she definitely needs to have a permeant pacemaker. We will make an appointment with customer complaint clerk Dr. Kennedy in [place]. The patient is still thinking about whether to go for the appointment or not but we will get her an appointment to be seen. Holter Monitor has been applied. Her cardiovascular status is stable. Kidney functions are normal with being treated for urinary tract infection. PROGNOSIS: poor considering her noncompliance of lifestyle, medications and recommendations. Also her endstage medical problems. The patient has sedentary lifestyle. TIME SPENT: More than 30 minutes. Plan and coordination of the patient's care discussed in the presence of nurse. FORREST
--- NOTE | 2020-12-15 11:05 | HOLTER ---
PATIENT INFORMATION AND COMMENTS Attending Physician: DR. ANTONIA KARIMI Indications: ANEMIA, GENERAL WEAKNESS __ Patient Medications: LIPITOR, COREG, IMDUR, PROTONIX, NIFEREX, FUROSEMIDE, LEVOTHYROXINE, VALSARTAN, TRAZODONE __ Pre-procedure Summary: Protocol: Standard Heart Rate Started: 12/10/2020825 Minimum: 36 BPM Weight: 231 LBS Ended: 12/11/2020825 Maximum: 120 BPM Height: 62" Duration: 24 HOURS Average: 69 BPM _ INTERPRETATIONS/OBSERVATIONS: 1. BASIC RHYTHM: SINUS, RATE 36 BPM TO 120 BPM, AVERAGE 70 BPM 2. INTERMITTENT 3RD DEGREE AV BLOCK WITH MOBITZ TYPE 2, 2ND DEGREE AV BLOCK NOTED WITH LONGEST RATE 36 BPM 3. NO PAUSES GREATER THAN 2.0 SECONDS NOTED 4. INFREQUENT PAC'S AND PVC'S NOTED 5. ACTIVITY LOG --BLANK COPY TO MD [facility] ([place]
--- NOTE | 2020-12-15 11:35 | ECHO2D ---
Date of Exam: 12/09/2020 Ordering Physician: DR. ANTONIA KARIMI Room #: 102 Reason for Echo: SHORTNESS OF AIR M-Mode Normal Adult Results LV Dimensions Normal Adult Results AoV Opening excursions >1.6 >1.6 LVEDD-base- 3.5-5.8 4.9 Ao root dimensions 2.0-3.7 3.6 LVESD-base- 3.1-4.6 L. Atrium dimensions 1.9-3.8 4.9 Post. Wall thickness 0.8-1.1 1.2 IV septum (thickness) 0.7-1.2 1.3 Post. Wall excursion 0.72-1.3 NORMAL Septal motion 0.2 Systolic motion R. Ventricular cavity 1.5-2.0 NORMAL LVEF 60% 45 - 50% Paradoxical septal wall motion NORMAL 2-D : ENLARGED LEFT ATRIAL CAVITY--HYPOKINETIC SEPTUM, NORMAL VALVES, NO EFFUSION, NO THROMBUS, LEFT VENTRICLE SIZE--NORMAL M-MODE: MV: NORMAL AV: NORMAL TV: NORMAL PV: CHAMBER SIZE: ENLARGED LEFT ATRIAL CAVITY WALL MOTION: HYPOKINETIC SEPTUM PERICARDIUM: NORMAL INTERPRETATION: 1. LEFT VENTRICULAR HYPERTROPHY WITH ENLARGED LEFT ATRIAL CAVITY 2. HYPOKINETIC SEPTUM (LBBB) WITH LEFT VENTRICLE EJECTION FRACTION 45 TO 50% 3. NORMAL VALVES 4. NORMAL LEFT VENTRICLE SIZE MTDD
== END 2020-12-11 14:55 | disposition home or self-care (01) | DRG 292 ==
LOC: ED 15:30 → MEDSURG A 20:29 → INTOOBSV 20:29 → MEDSURG A 21:20
PROVIDERS: ADMIT Internal Medicine; ATTEND Internal Medicine
DX: I25.5 Ischemic cardiomyopathy; M54.9 Dorsalgia, unspecified; M79.661 Pain in right lower leg; J44.9 Chronic obstructive pulmonary disease, unspecified; R11.0 Nausea; Z91.19 Patient's noncompliance with other medical treatment and regimen; R27.0 Ataxia, unspecified; R26.81 Unsteadiness on feet; E87.6 Hypokalemia; I10 Essential (primary) hypertension; R60.0 Localized edema; N39.0 Urinary tract infection, site not specified; R42 Dizziness and giddiness; M16.11 Unilateral primary osteoarthritis, right hip; R53.1 Weakness; I25.10 Atherosclerotic heart disease of native coronary artery without angina pectoris; D64.9 Anemia, unspecified; I50.33 Acute on chronic diastolic (congestive) heart failure; N18.9 Chronic kidney disease, unspecified; I49.9 Cardiac arrhythmia, unspecified; E78.5 Hyperlipidemia, unspecified